=== PATIENT | female | born 1940 | race Caucasian/White ===

== ENCOUNTER 2019-03-13 12:10 | Observation (INO) ==
--- NOTE | 2019-03-13 12:37 | Emergency Department Note ---
Disposition Clinical Impression: Acute decompensated heart failure, JU (acute kidney injury) Disposition: Admitted As Inpatient Condition: Fair Forms: ED Satisfaction Letter, Work/School Release Time of Disposition: 14:37 General Adult HPI - General Chief complaint: ED General Medical Stated complaint: elevated BP CHF Time Seen by Provider: 03/13/19 12:25 Source: patient Limitations: no limitations Nursing Notes Reviewed: Yes Vital Signs Reviewed: Yes - History of Present Illness HPI Narrative: Patient presents to the ED with a chief complaint of shortness of breath. Onset a couple of months ago. Dyspnea on exertion. Patient states she can only get a few steps before she short of breath. It comes and goes. Patient sleeps in a chair. She is not experiencing any paroxysmal nocturnal dyspnea. Cough that is nonproductive. No fever. No chest pain. No vomiting no diarrhea. She is having increased swelling in her legs over the past 3 days. Patient has a history of CHF. Chest is a history of blood clots. She states she takes a blood thinner but is not sure what it is. Pain Scale: 0 - Related Data Home Medications Medication Instructions Recorded Confirmed Aspirin [Ecotrin] 325 mg PO DAILY 03/11/18 01/15/19 Atorvastatin [Lipitor] 20 mg PO HS 03/11/18 01/15/19 Levothyroxine [Synthroid] 88 mcg PO 0630 03/11/18 01/15/19 Metoprolol [Lopressor] 50 mg PO BID 03/11/18 01/15/19 Allopurinol [Zyloprim 100 MG] 100 mg PO DAILY PRN 08/27/18 01/15/19 Ranolazine [Ranexa] 500 mg PO BID 12/05/18 01/15/19 Albuterol Sulfate [Ventolin Hfa] 2 puff IH Q4H PRN 01/15/19 01/15/19 Previous Rx's Medication Instructions Recorded Lisinopril [Zestril] 10 mg PO DAILY #30 tablet 12/07/18 Omeprazole [PriLOSEC] 20 mg PO DAILY@0630 #30 capsule. 12/07/18 Nitroglycerin 0.4 mg SL PRN PRN #30 tab.subl 01/18/19 Allergies Allergy/AdvReac Type Severity Reaction Status Date / Time No Known Allergies Allergy Verified 12/05/18 10:34 All systems ED: reviewed and negative except as stated. Constitutional: Denies: fever Cardiovascular: Denies: chest pain, palpitations Respiratory: Reports: cough, dyspnea. Denies: wheezes Gastrointestinal: Denies: abdominal pain, nausea, vomiting, diarrhea Musculoskeletal: Reports: back pain (Chronic) Past Medical History - Past Medical History Attestation: Yes The following information was validated with the patient. Source: patient Medical history: Reports: CHF, coronary artery disease, hyperlipidemia, hypertension, myocardial infarction, pulmonary embolus, renal disease, thyroid disease, valvular heart disease, other Surgical history: Reports: carotid endarterectomy, heart valve replacement (bioprosthetic), knee replacement Psychiatric history: Reports: no psych history CAMP TENDER history: Reports: no CAMP TENDER history - Social History Smoking Status: Never smoker Smokeless Tobacco Status: No Alcohol use: Reports: none Drug use: Reports: none Physical Exam - General Limitations: no limitations General appearance: alert - Head Head exam: atraumatic, normocephalic - Eye Eye exam: Present: normal appearance - ENT ENT exam: normal exam, normal oropharynx - Neck Neck exam: Present: normal inspection, full ROM - Chest Chest inspection: Present: normal inspection, symmetric chest wall rise - Respiratory Respiratory exam: Present: other (Decreased air exchange in bases. Clear otherwise.). Absent: respiratory distress - Cardiovascular Cardiovascular exam: Present: regular rate, normal rhythm - Abdominal Exam Abdominal exam: Present: Non-Tender. Absent: tenderness, distention, guarding, rebound - Rectal Exam Stars Specialist present during exam: Yes (technical fellow) Rectal exam: Present: normal inspection, normal rectal tone, other (Brown stool). Absent: hemorrhoids - Expanded Lower Extremity Exam Lower leg exam: Present: other (2+ pitting edema to bilateral lower extremities. Symmetric.) - Psychiatric Psychiatric exam: Present: normal affect, normal mood - Skin Skin exam: Present: warm, dry Course Course Narrative: Patient is satting 100% on room air. She is in no distress. Cardiac workup. Vital Signs Temperature 98.2 F 03/13/19 12:12 Pulse Rate 60 03/13/19 12:12 Respiratory Rate 18 03/13/19 12:12 Blood Pressure 181/70 03/13/19 12:12 O2 Sat by Pulse Oximetry 96 03/13/19 12:12 Temperature 98.2 F 03/13/19 12:12 Pulse Rate 60 03/13/19 12:12 Respiratory Rate 18 03/13/19 12:12 Blood Pressure 181/70 03/13/19 12:12 O2 Sat by Pulse Oximetry 96 03/13/19 12:12 Oxygen Delivery Oxygen Delivery Room Air Medical Decision Making - MDM Narrative Medical decision making narrative: Patient with a new bump in her creatinine. Elevation in her BNP and troponin. She is given an aspirin. She is given IV Lasix. She is a new drop her hemoglobin over the past 5 months. Stool Hemoccult was sent, but no gross blood. Calling for admission. - Lab Data Lab results reviewed: Yes I reviewed the patient's lab results. Result diagrams: 03/13/19 12:32 03/13/19 12:32 Lab Results 03/13/19 03/13/19 03/13/19 Range/Units 12:32 12:32 12:32 WBC 6.9 (4.3-11.1) K/mcL RBC 2.96 L (3.82-4.97) M/mcL Hgb 9.1 L (11.5-15.4) g/dL Hct 29.0 L (35.3-44.9) % MCV 98.0 (83.0-100.0) fL MCH 30.7 (28.0-33.3) pg MCHC 31.4 L (31.6-35.5) g/dL RDW 15.2 H (11.5-14.5) % Plt Count 171 (140-400) K/mcL MPV 11.2 (9.4-12.4) fL Immature Gran % 0.6 (0-4) % Seg Neutrophils % 66.4 % Lymphocytes % 21.7 % Monocytes % 9.3 % Eosinophils % 1.3 % Basophils % 0.7 % Neutrophils # 4.6 (1.6-8.9) K/mcL Lymphocytes # 1.5 (0.6-4.6) K/mcL Monocytes # 0.6 (0.0-1.3) K/mcL Eosinophils # 0.1 (0.0-0.6) K/mcL Basophils # 0.1 (0.0-0.2) K/mcL PT 15.7 H (9.4-12.1) Seconds INR 1.4 Sodium (136-145) mEq/L Potassium (3.5-5.1) mEq/L Chloride (98-107) mEq/L Carbon Dioxide (23-29) mEq/L BUN (8-23) mg/dL Creatinine (0.60-1.20) mg/dL Est GFR ( Amer) (> 60) Est GFR (Non-Af Amer) (> 60) BUN/Creatinine Ratio (6-26) Glucose (70-105) mg/dL Calculated Osmolality (280-300) Calcium (8.6-10.3) mg/dL Troponin I (< 0.04) ng/mL B-Natriuretic Peptide 1741 H (Less than 100) pg/mL Urine Color (Yellow) Urine Clarity (Clear) Urine pH (5.0-8.0) pH Units Ur Specific [place] (1.010-1.025) Urine Protein (Neg-Trace) mg/dL Urine Glucose (UA) (Normal) mg/dL Urine Ketones (Negative) mg/dL Urine Blood (Negative) Urine Nitrite (Negative) Urine Bilirubin (Negative) Urine Urobilinogen (Normal) mg/dL Ur Leukocyte Esterase (Negative) Urine Microscopic RBC (0-3) per hpf Urine Microscopic WBC (0-3) per hpf Ur Squamous Epith Cells (None-Few) per lpf Urine Bacteria (None-Few) per hpf Hyaline Casts (None-Few) per lpf Ur Culture Indicated? (NO) 03/13/19 03/13/19 Range/Units 12:32 12:48 WBC (4.3-11.1) K/mcL RBC (3.82-4.97) M/mcL Hgb (11.5-15.4) g/dL Hct (35.3-44.9) % MCV (83.0-100.0) fL MCH (28.0-33.3) pg MCHC (31.6-35.5) g/dL RDW (11.5-14.5) % Plt Count (140-400) K/mcL MPV (9.4-12.4) fL Immature Gran % (0-4) % Seg Neutrophils % % Lymphocytes % % Monocytes % % Eosinophils % % Basophils % % Neutrophils # (1.6-8.9) K/mcL Lymphocytes # (0.6-4.6) K/mcL Monocytes # (0.0-1.3) K/mcL Eosinophils # (0.0-0.6) K/mcL Basophils # (0.0-0.2) K/mcL PT (9.4-12.1) Seconds INR Sodium 138 (136-145) mEq/L Potassium 4.6 (3.5-5.1) mEq/L Chloride 104 (98-107) mEq/L Carbon Dioxide 23 (23-29) mEq/L BUN 40 H (8-23) mg/dL Creatinine 2.08 H (0.60-1.20) mg/dL Est GFR ( Amer) 28 L (> 60) Est GFR (Non-Af Amer) 23 L (> 60) BUN/Creatinine Ratio 19 (6-26) Glucose 116 H (70-105) mg/dL Calculated Osmolality 297 (280-300) Calcium 10.2 (8.6-10.3) mg/dL Troponin I 0.05 H* (< 0.04) ng/mL B-Natriuretic Peptide (Less than 100) pg/mL Urine Color Yellow (Yellow) Urine Clarity Clear (Clear) Urine pH 5.0 (5.0-8.0) pH Units Ur Specific [place] 1.021 (1.010-1.025) Urine Protein 100 H (Neg-Trace) mg/dL Urine Glucose (UA) Normal (Normal) mg/dL Urine Ketones Negative (Negative) mg/dL Urine Blood Negative (Negative) Urine Nitrite Negative (Negative) Urine Bilirubin Negative (Negative) Urine Urobilinogen Normal (Normal) mg/dL Ur Leukocyte Esterase Negative (Negative) Urine Microscopic RBC 0-3 (0-3) per hpf Urine Microscopic WBC 3-5 H (0-3) per hpf Ur Squamous Epith Cells Many H (None-Few) per lpf Urine Bacteria Many H (None-Few) per hpf Hyaline Casts None Seen (None-Few) per lpf Ur Culture Indicated? YES A (NO) - Radiology Data Radiology results reviewed: Yes I reviewed the patient's radiology results. Chest X-Ray 03/13/19 12:34 IMPRESSION: No evidence of acute cardiopulmonary disease. D/ / Abraham Hernandez MD / Abraham Hernandez MD Interpreting Provider: Abraham Hernandez MD - EKG Data EKG #1 EKG attestation: Yes I reviewed and interpreted this EKG. EKG results narrative: EKG is paced at 60. The QRS and ST morphologies are unchanged from an EKG in December of this year. Critical Care Time Critical Care Time: Yes Total Critical Care Time: 35 Attestation: Critical care performed: Time is exclusive of separately billable procedures. Time includes: direct patient care, patient reassessment, coordination of patient care, interpretation of data (laboratory data, radiology data, and respiratory data), review of patient's medical records, medical consultation and documentation of patient care. Procedures included in critical care time: Procedures excluded from critical care time:
[2019-03-13 12:50] LABS: Basophils # 0.1 K/mcL (0.0-0.2); Basophils % 0.7 %; Eosinophils # 0.1 K/mcL (0.0-0.6); Eosinophils % 1.3 %; Hemoglobin 9.1 g/dL (11.5-15.4); Immature Granulocytes % 0.6 % (0-4); Lymphocytes # 1.5 K/mcL (0.6-4.6); Lymphocytes % 21.7 %; Mean Corpuscular HGB Conc 31.4 g/dL (31.6-35.5); Mean Corpuscular Hemoglobin 30.7 pg (28.0-33.3); Mean Platelet Volume 11.2 fL (9.4-12.4); Monocytes # 0.6 K/mcL (0.0-1.3); Monocytes % 9.3 %; Neutrophils # 4.6 K/mcL (1.6-8.9); Platelet Count 171 K/mcL (140-400); Red Blood Count 2.96 M/mcL (3.82-4.97); Red Cell Distribution Width 15.2 % (11.5-14.5); Segmented Neutrophils % 66.4 %
[2019-03-13 12:58] LABS: INR 1.4; Prothrombin Time 15.7 Seconds (9.4-12.1)
[2019-03-13 13:03] LABS: Bilirubin,Urine Negative (Negative); Blood,Urine Negative (Negative); Clarity,Urine Clear (Clear); Color,Urine Yellow (Yellow); Glucose,Urine (UA) Normal (Normal); Ketones,Urine Negative (Negative); Leukocyte Esterase,Urine Negative (Negative); Nitrite,Urine Negative (Negative); Protein,Urine 100 mg/dL (Neg-Trace); Specific Gravity,Urine 1.021 (1.010-1.025); Urobilinogen,Urine Normal (Normal)
[2019-03-13 13:05] LABS: Bacteria,Urine Many per hpf (None-Few); Hyaline Casts,Urine None Seen per lpf (None-Few); RBC,Urine 0-3 per hpf (0-3); Squamous Epithelial Cell,Urine Many per lpf (None-Few)
[2019-03-13 13:10] LABS: Calcium 10.2 mg/dL (8.6-10.3); Potassium 4.6 mEq/L (3.5-5.1)
[2019-03-13 14:05] LABS: Troponin I 0.05 ng/mL (< 0.04)
[2019-03-13] MEDS ORDERED: Furosemide 40 MG/4 ML VIAL IVP ONE (14:15)
[2019-03-13] MEDS ORDERED: Aspirin 325 MG TABLET PO ONE (14:36)
[2019-03-13] MEDS ORDERED: Naloxone 0.4 MG/ML INJ IVP PRN (14:54)
[2019-03-13] MEDS ORDERED: Nitroglycerin 0.4 MG TAB.SUBL SL PRN (15:10)
--- NOTE | 2019-03-13 15:19 | Internal Med History&Physical ---
Date of Encounter: 03/13/19 Time of Encounter: 15:15 Internal Medicine - H&P: HPI Chief complaint: Shortness of breath Admitted From: Home Plans for Post Hospital Care: Home History of present illness: Ms. Guajardo is a 78 year old female with history of aortic stenosis status post replacement and restenosis, heart failure preserved ejection fraction presented to the emergency department with complaint of shortness of breath. As per patient her shortness of breath started 3 days ago and is progressively worsening. She is unable to complete her every day tasks, it has become more difficult for her to ambulate around her house over the past 3 days. On the morning of admission she was unable to catch her breath with minimal exertion so she decided to come to the emergency department. She denies cough, chest pain or palpitations however does report orthopnea and PND over the past 3 days. In addition she complains of bilateral lower extremity swelling. 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 She understand that her symptoms are likely related to her severe aortic stenosis and given her elevated BNP and troponin she has poor prognosis she understands. She wishes to be DNR CCA DNI and she has made her her decision maker in any event that she cannot make her own decisions. She denies fever, chills, cough, recent upper respiratory tract infections, nausea, vomiting or diarrhea. She denies prolonged immobilization or calf tenderness, has never had any blood clots in the past. Past Med Surg Social Fam HX - Past Medical History Medical history: CHF, coronary artery disease, hyperlipidemia, hypertension, myocardial infarction, pulmonary embolus, renal disease, thyroid disease, valvular heart disease, other Additional medical history: GOUT Psychiatric history: no psych history - Past Surgical History Surgical History: carotid endarterectomy, heart valve replacement (bioprosthetic), knee replacement - Social History Smoking Status: Never smoker Smokeless Tobacco Status: No Alcohol use: none Drug use: none - Family History Mother Living Status: Father Living Status: Internal Medicine - H&P: Meds Aspirin [Ecotrin] 325 mg PO DAILY 03/11/18 [History] Atorvastatin [Lipitor] 20 mg PO HS 03/11/18 [History] Levothyroxine [Synthroid] 88 mcg PO 0630 03/11/18 [History] Metoprolol [Lopressor] 50 mg PO BID 03/11/18 [History] Allopurinol [Zyloprim 100 MG] 100 mg PO DAILY PRN 08/27/18 [History] Ranolazine [Ranexa] 500 mg PO BID 12/05/18 [History] Lisinopril [Zestril] 10 mg PO DAILY #30 tablet 12/07/18 [Rx] Omeprazole [PriLOSEC] 20 mg PO DAILY@0630 #30 capsule.dr 12/07/18 [Rx] Albuterol Sulfate [Ventolin Hfa] 2 puff IH Q4H PRN 01/15/19 [History] Nitroglycerin 0.4 mg SL PRN PRN #30 tab.subl 01/18/19 [Rx] Allergy/AdvReac Type Severity Reaction Status Date / Time No Known Allergies Allergy Verified 12/05/18 10:34 All Systems PM: A 10-system review of systems was performed and is negative for pertinent findings except as documented above in the HPI. - Constitutional Vitals: Temp Pulse Resp BP Pulse Ox 98.2 F 60 20 165/63 100 03/13/19 12:12 03/13/19 14:55 03/13/19 14:55 03/13/19 14:55 03/13/19 14:55 Exam: General: Patient is alert, oriented, no acute distress, obese Head: atraumatic, normocephalic, Eye: normal appearance, PERRL, no scleral icterus, no conjunctival injection ENT: mucous membranes moist, normal external ear exam Neck: normal inspection, trachea midline, full ROM Chest: normal inspection, symmetric chest rise Respiratory: Distant breath sounds secondary to body habitus, Good respiratory effort. Bilateral breath sounds are clear without wheezing, crackles, or rhonchi. Cardiovascular: Regular rate and rhythm. s1 and s2 systolic ejection murmur at the right second intercostal space parasternally, radiating to the carotids, has device in the left chest without any signs of infection. Abdomen: Bowel sounds present normoactive x-4 quadrants. Abdomen is soft, nondistended. no Epigastric tenderness. No guarding or rebound. No organomegaly noted, obese musculoskeletal: Spontaneously moving all extremities. Trace edema bilateral lower extremities, no calf discoloration, no calf tenderness Skin: warm, dry, intact. Neuro: Alert and oriented x4. no focal deficit Psych: Patient's affect is normal Internal Med - H&P Results - Labs CBC & Chem 7: 03/13/19 12:32 03/13/19 12:32 Labs: Short CBC 03/13/19 Range/Units 12:32 WBC 6.9 (4.3-11.1) K/mcL Hgb 9.1 L (11.5-15.4) g/dL Hct 29.0 L (35.3-44.9) % Plt Count 171 (140-400) K/mcL Neutrophils # 4.6 (1.6-8.9) K/mcL BMP 03/13/19 12:32 Sodium 138 Potassium 4.6 Chloride 104 Carbon Dioxide 23 BUN 40 H Creatinine 2.08 H Glucose 116 H Calcium 10.2 Cardiac Enzymes 03/13/19 Range/Units 12:32 Troponin I 0.05 H* (< 0.04) ng/mL Urine 03/13/19 Range/Units 12:48 Urine Color Yellow (Yellow) Urine Clarity Clear (Clear) Urine pH 5.0 (5.0-8.0) pH Units Ur Specific [place] 1.021 (1.010-1.025) Urine Protein 100 H (Neg-Trace) mg/dL Urine Glucose (UA) Normal (Normal) mg/dL - EKG Data -: EKG Interpreted by Myself (Atrial ventricular paced) - EKG Data Prior EKG available for review: yes When compared to previous EKG: there is no significant change - Impressions ITS Impressions Chest X-Ray 03/13/19 12:34 IMPRESSION: No evidence of acute cardiopulmonary disease. D/ / Abraham Hernandez MD / Abraham Hernandez MD Interpreting Provider: Abraham Hernandez MD - Assessment and Plan (1) Acute on chronic diastolic (congestive) heart failure Current Visit: No Status: Chronic Assessment and plan: BNP 1741 CXR without vascualr congestion however she has LE edema TTE in 2017- LVEF 60-65%.Normal LV chamber size and function.Moderate concentric left ventricular hypertrophy. has severe but overloaded on exam was give lasix 40 mg IVP in the ED avoid over diuresis/ avoid vasodilators and avoid reducing preload too much as she has severe strict i/O daily weights fluid restricted diet TTE ordered will follow (2) Acute renal failure superimposed on stage 3 chronic kidney disease Current Visit: Yes Status: Acute Assessment and plan: suspect cardiorenal syndrome as she is fluid overloaded adn most likely has under perfused kidneys will get renal US to rule out hydronephrosis recieved one dose of IV lasix in the ED follow intake and out put will follow renal functions closely Qualifiers: Acute renal failure type: unspecified Qualified Code(s): N17.9 - Acute kidney failure, unspecified; N18.3 - Chronic kidney disease, stage 3 (moderate) (3) Aortic stenosis Current Visit: No Status: Chronic Assessment and plan: was found to be inoperable as per patient ( by [facility] and [facility]) was recently admitted for similar symptoms however TTE was not performed as "however as pt declines further intervention, would not change therapy" will repeat TTE to see the degree of stenosis now as the last TTE was in 2017 skilled nursing prognosis is poor TTE 2017 Technically sub-optimal due to poor echocardiographic windows. LVEF 60-65%. Normal LV chamber size and function. Moderate concentric left ventricular hypertrophy. Atypical septal motion consistent with paced rhythm. Normal right ventricular structure and function. Severely dilated left atrium. Moderate left ventricular diastolic dysfunction. Bioprosthetic aortic valve not well visualized. 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 Mean gradient 60 mmHg, Peak velocity 5.57 m/s. Trace aortic regurgitation. Mild mitral regurgitation. Moderate to severe tricuspid regurgitation. Estimated RVSP is 54 mmHg. A device lead was visualized in the right atrium and right ventricle. Qualifiers: Cardiac valve disease etiology: etiology unspecified Qualified Code(s): I35.0 - Nonrheumatic aortic (valve) stenosis (4) Acute on chronic anemia Current Visit: Yes Status: Acute Assessment and plan: baseline H/H about 11.6 on 02/12/2019 Currently hemoglobin level of 9.1 could be due to volume overload. Rule out other etiologies for her anemia Iron panel, ferritin, reticulocyte count, LDH, B12 and folate was sent continue with PPI Type and cross Follow H&H closely and transfuse less than 8 FOBT ordered and it was negative (5) Elevated troponin Current Visit: Yes Status: Acute Assessment and plan: Has chronic elevated troponins. Was recently admitted in January 15 troponin trended 0.25-0.72-0.88-0.38 at that time she was treated with heparin drip Cardiology was consulted in December and "Minimal elevation of troponin, may be due to demand ischemia, may have underlying worsening of CAD, however pt elects for medical tx only, continue current tx. " Elevated troponin is most likely residual from last admission and also related to her severe aortic stenosis however cannot rule out underlying worsening CAD in setting of her acute renal failure on CKD Currently troponin is 0.05 we will continue to monitor every 6 hours She has had no chest pain No significant EKG changes Will repeat echocardiogram was given ASA 325 mg in the ED continue with ASA, BB, statin, ranolazine holding ARB ( has JU) (6) Hypertension Current Visit: No Status: Chronic Assessment and plan: ARB on hold as she has ARF IV hydralazine PRN for elevated BP avoid vasodilators, preload reducers and aggressive diuretic therapy as she has severe . Qualifiers: Hypertension type: essential hypertension Qualified Code(s): I10 - Essential (primary) hypertension (7) Hypothyroidism Current Visit: No Status: Chronic Assessment and plan: continue with home synthroid TSH in AM Qualifiers: Hypothyroidism type: unspecified Qualified Code(s): E03.9 - Hypothyroidism, unspecified (8) Goals of care, counseling/discussion Current Visit: No Status: Acute Assessment and plan: discussed with patient at length she is DNR CCA DNI at bedside and she has made him decision maker in an event she cannot make her own decisions. 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
[2019-03-13] MEDS: *HR* Heparin 5,000 UNIT/ML VIAL SQ SCH (20:53)
[2019-03-13] MEDS: Ranolazine 500 MG TAB.ER.12H PO SCH (20:53)
[2019-03-14 01:18] LABS: Basophils # 0.1 K/mcL (0.0-0.2); Basophils % 0.7 %; Eosinophils # 0.2 K/mcL (0.0-0.6); Eosinophils % 2.2 %; Hematocrit 35.6 % (35.3-44.9); Immature Granulocytes % 0.4 % (0-4); Immature Reticulocyte % 26.1 % (11.0-38.0); Lymphocytes # 2.4 K/mcL (0.6-4.6); Mean Corpuscular HGB Conc 32.3 g/dL (31.6-35.5); Mean Corpuscular Hemoglobin 30.8 pg (28.0-33.3); Mean Corpuscular Volume 95.4 fL (83.0-100.0); Mean Platelet Volume 11.2 fL (9.4-12.4); Monocytes # 1.1 K/mcL (0.0-1.3); Monocytes % 11.9 %; Neutrophils # 5.4 K/mcL (1.6-8.9); Platelet Count 224 K/mcL (140-400); Red Blood Count 3.73 M/mcL (3.82-4.97); Retculocyte # 0.1 M/mcL (0.05-0.10); Reticulocyte % 2.6 % (1.6-2.8); Segmented Neutrophils % 58.8 %
[2019-03-14 01:24] LABS: Hemoglobin 11.5 g/dL (11.5-15.4)
[2019-03-14 01:40] LABS: Calcium 9.9 mg/dL (8.6-10.3); Chol/HDL Ratio 3.7 (0-4.9); Magnesium 1.7 mg/dL (1.6-2.6); Phosphorous 3.4 mg/dL (2.7-4.5); Potassium 3.8 mEq/L (3.5-5.1)
[2019-03-14 01:41] LABS: % Iron Saturation 21 % (15-50); Iron 73 mcg/dL (50-170); Lactate Dehydrogenase 221 Units/L (140-271); Transferrin 247 mg/dL (203-362)
[2019-03-14 01:43] LABS: Troponin I 0.05 ng/mL (< 0.04)
[2019-03-14 01:56] LABS: Thyroid Stimulating Hormone 14.707 mcIU/mL (0.340-5.600)
[2019-03-14 01:58] LABS: Ferritin 289 ng/mL (10-120)
[2019-03-14 02:04] LABS: Folate 15.6 ng/mL (3.0-16.0)
[2019-03-14] MEDS: *HR* Heparin 5,000 UNIT/ML VIAL SQ SCH ×3 (04:01→21:45)
[2019-03-14] MEDS ORDERED: Furosemide 40 MG/4 ML VIAL IVP SCH (09:00)
[2019-03-14] MEDS: Aspirin Enteric Coated 325 MG Tablet PO SCH (09:45)
[2019-03-14] MEDS: Ranolazine 500 MG TAB.ER.12H PO SCH ×2 (09:45→21:45)
--- NOTE | 2019-03-14 10:45 | Internal Med Progress Note ---
Hospitalist Progress Note - Encounter Date of Encounter: 03/14/19 Time of Encounter: 09:30 - Subjective Interval History: patient was seen and examined at bedside. no overnight events. currently denies SOB or chest pain or palpitations. i discussed again that her symptoms as most likely related to the that she has. she wishes to have no further surgeries. - Exam Vitals: Temp Pulse Resp BP Pulse Ox 98.5 F 60 20 171/97 98 03/14/19 07:10 03/14/19 07:10 03/14/19 07:10 03/14/19 07:10 03/14/19 07:10 Exam: General: Patient is alert, oriented, no acute distress, obese Head: atraumatic, normocephalic, Eye: normal appearance, PERRL, no scleral icterus, no conjunctival injection ENT: mucous membranes moist, normal external ear exam Neck: normal inspection, trachea midline, full ROM Chest: normal inspection, symmetric chest rise Respiratory: Distant breath sounds secondary to body habitus, Good respiratory effort. Bilateral breath sounds are clear without wheezing, crackles, or rhonchi. Cardiovascular: Regular rate and rhythm. s1 and s2 systolic ejection murmur at the right second intercostal space parasternally, radiating to the carotids, has device in the left chest without any signs of infection. Abdomen: Bowel sounds present normoactive x-4 quadrants. Abdomen is soft, nondistended. no Epigastric tenderness. No guarding or rebound. No organomegaly noted, obese musculoskeletal: Spontaneously moving all extremities. Trace edema bilateral lower extremities, no calf discoloration, no calf tenderness Skin: warm, dry, intact. Neuro: Alert and oriented x4. no focal deficit Psych: Patient's affect is normal - Assessment and Plan (1) Acute on chronic diastolic (congestive) heart failure Current Visit: No Status: Chronic Assessment and Plan: BNP 1741 CXR without vascualr congestion however she has LE edema TTE in 2017- LVEF 60-65%.Normal LV chamber size and function.Moderate concentric left ventricular hypertrophy. has severe but overloaded on exam was give lasix 40 mg IVP in the ED - with improvement of her volume status had -930 balance overnight avoid over diuresis/ avoid vasodilators and avoid reducing preload too much as she has severe strict i/O daily weights fluid restricted diet TTE ordered will follow (2) Acute renal failure superimposed on stage 3 chronic kidney disease Current Visit: Yes Status: Acute Assessment and Plan: suspect cardiorenal syndrome as she is fluid overloaded adn most likely has under perfused kidneys will get renal US to rule out hydronephrosis received one dose of IV lasix in the ED - will hold off of lasix as creatinine trended up. follow intake and out put will follow renal functions closely (3) Aortic stenosis Current Visit: No Status: Chronic Assessment and Plan: was found to be inoperable as per patient ( by [facility] and [facility]) was recently admitted for similar symptoms however TTE was not performed as "however as pt declines further intervention, would not change therapy" i spoke to the patinet again today she declines any further invasive cardiac procedures will repeat TTE to see the degree of stenosis now as the last TTE was in 2017 [facility] prognosis is poor TTE 2017 Technically sub-optimal due to poor echocardiographic windows. LVEF 60-65%. Normal LV chamber size and function. Moderate concentric left ventricular hypertrophy. Atypical septal motion consistent with paced rhythm. Normal right ventricular structure and function. Severely dilated left atrium. Moderate left ventricular diastolic dysfunction. Bioprosthetic aortic valve not well visualized. 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 Mean gradient 60 mmHg, Peak velocity 5.57 m/s. Trace aortic regurgitation. Mild mitral regurgitation. Moderate to severe tricuspid regurgitation. Estimated RVSP is 54 mmHg. A device lead was visualized in the right atrium and right ventricle. (4) Acute on chronic anemia Current Visit: Yes Status: Acute Assessment and Plan: baseline H/H about 11.6 on 02/12/2019 Currently hemoglobin level of 9.1 could be due to volume overload. Rule out other etiologies for her anemia Iron panel noted, LDH 221, B12- 225 and folate 15.6 started on B12 replacement continue with PPI Type and cross Follow H&H closely and transfuse less than 8 FOBT ordered and it was negative (5) Elevated troponin Current Visit: Yes Status: Acute Assessment and Plan: Has chronic elevated troponins. Was recently admitted in January 15 troponin trended 0.25-0.72-0.88-0.38 at that time she was treated with heparin drip Cardiology was consulted in December and "Minimal elevation of troponin, may be due to demand ischemia, may have underlying worsening of CAD, however pt elects for medical tx only, continue current tx. " Elevated troponin is most likely residual from last admission and also related to her severe aortic stenosis however cannot rule out underlying worsening CAD in setting of her acute renal failure on CKD Currently troponin is 0.05 x 3 She has had no chest pain No significant EKG changes echocardiogram pending was given ASA 325 mg in the ED - continue with home ASA dose continue with ASA, BB, statin, ranolazine holding ARB (has JU) (6) Hypertension Current Visit: No Status: Chronic Assessment and Plan: ARB on hold as she has ARF started on hydralazine and continue with IV PRN for elevated BP avoid vasodilators, preload reducers and aggressive diuretic therapy as she has severe . (7) Hypothyroidism Current Visit: No Status: Chronic Assessment and Plan: TSH 14.7 will increase synthroid 100 mcg follow TFTs in 4 weeks as OP (8) Goals of care, counseling/discussion Current Visit: No Status: Acute Assessment and Plan: discussed with patient at length she is DNR CCA DNI at bedside and she has made him decision maker in an event she cannot make her own decisions. 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 (9) DVT prophylaxis Current Visit: No Status: Acute Assessment and Plan: Heparin subcutaneous - Time Spent with Patient Total time spent is greater than 50% in coordination of care (as documented) at patient's floor/unit and/or counseling patient: Internal Medicine: Result - Labs CBC & Chem 7: 03/14/19 00:58 03/14/19 00:58 Labs: Short CBC 03/13/19 03/14/19 Range/Units 12:32 00:58 WBC 6.9 9.2 (4.3-11.1) K/mcL Hgb 9.1 L 11.5 D (11.5-15.4) g/dL Hct 29.0 L 35.6 (35.3-44.9) % Plt Count 171 224 (140-400) K/mcL Neutrophils # 4.6 5.4 (1.6-8.9) K/mcL BMP 03/13/19 03/14/19 12:32 00:58 Sodium 138 140 Potassium 4.6 3.8 Chloride 104 104 Carbon Dioxide 23 25 BUN 40 H 40 H Creatinine 2.08 H 2.19 H Glucose 116 H 124 H Calcium 10.2 9.9 Cardiac Enzymes 05/03/13/19 03/14/19 Range/Units 12:32 19:11 00:58 Troponin I 0.05 H* 0.05 H* 0.05 H* (< 0.04) ng/mL Urine 03/13/19 Range/Units 12:48 Urine Color Yellow (Yellow) Urine Clarity Clear (Clear) Urine pH 5.0 (5.0-8.0) pH Units Ur Specific [place] 1.021 (1.010-1.025) Urine Protein 100 H (Neg-Trace) mg/dL Urine Glucose (UA) Normal (Normal) mg/dL - ABG Interpretation ABG results: PT/INR, D-dimer PT 15.7 Seconds (9.4-12.1) H 03/13/19 12:32 - Impressions Impressions Chest X-Ray 03/13/19 12:34 IMPRESSION: No evidence of acute cardiopulmonary disease. D/ / Abraham Hernandez MD / Abraham Hernandez MD Interpreting Provider: Abraham Hernandez MD Consult Discharge Plan - Plan Referrals: Candy Beverly MD [Primary Care Provider] - (2) Acute renal failure superimposed on stage 3 chronic kidney disease Qualifiers: Acute renal failure type: unspecified Qualified Code(s): N17.9 - Acute kidney failure, unspecified; N18.3 - Chronic kidney disease, stage 3 (moderate) (3) Aortic stenosis Qualifiers: Cardiac valve disease etiology: etiology unspecified Qualified Code(s): I35.0 - Nonrheumatic aortic (valve) stenosis (6) Hypertension Qualifiers: Hypertension type: essential hypertension Qualified Code(s): I10 - Essential (primary) hypertension (7) Hypothyroidism Qualifiers: Hypothyroidism type: unspecified Qualified Code(s): E03.9 - Hypothyroidism, unspecified
[2019-03-14] MEDS: hydrALAZINE 25 MG TABLET PO SCH ×2 (12:02→17:50)
--- NOTE | 2019-03-14 13:50 | Palliative - Consult Note ---
Date of Encounter: 03/14/19 Time of Encounter: 11:00 - Assessment and Plan (1) Chronic kidney disease (CKD) Current Visit: No Status: Acute Assessment and plan: The bun 40, creatinine 2.19. Qualifiers: Chronic kidney disease stage: stage 3 (moderate) Qualified Code(s): N18.3 - Chronic kidney disease, stage 3 (moderate) (2) Palliative care encounter Current Visit: Yes Status: Acute (3) Aortic valve stenosis Current Visit: No Status: Acute Assessment and plan: Patient reports inoperable aortic stenosis under guidance from [facility] and [facility]. Patient reports she understands this is a terminal cardiac condition. Qualifiers: Cardiac valve disease etiology: nonrheumatic Qualified Code(s): I35.0 - Nonrheumatic aortic (valve) stenosis (4) Goals of care, counseling/discussion Current Visit: No Status: Acute Assessment and plan: With patient regarding for goals of care discussion. Patient was immediately adamant against discussing hospice, upon introduction of palliative care team. Inquired if patient was agreeable to continue with goals of care discussion, patient was agreeable. Patient reports she desires to return home living with . Reviewed options for care at home including home health assistance and regarding symptom control and increase of strength. Patient interested in considering home health referral however desires to talk to her prior to making decision. Inquired with patient if could briefly review services made available by hospice. Patient agreeable. Reviewed allowance for nursing care, DME, medication support. Patient remained adamant against hospice at this time. Patient appreciative of information regarding hospice, she will know when to call for that service. Review CODE STATUS, patient confirmed DNR CCA/DNI. (5) Elevated troponin Current Visit: No Status: Acute Assessment and plan: Stable at this time. Palliative-CN HPI - Data of Consult Patient: new to practice Consult date: 03/14/19 Requesting Physician: Thao Hodge Primary Care Provider: Candy Beverly MD - Consult Narrative Palliative Care/Comfort Measures: Palliative care Reason for consult: Has Critical that is inoperable, is DNR/DNI, Hospice candidate? History of present illness: Ms. Guajardo is a 78 year old female arriving to [facility] emergency department on 03/13/2019, experiencing difficulty breathing 3 days and increased leg swelling 1 day with worsening symptoms on exertion. Patient has past medical history of congestive heart failure, coronary artery disease, hyperlipidemia, hypertension, myocardial infarction, PE, renal disease, thyroid disease, aortic stenosis deemed inoperable by [facility] and [facility]. Chest x-ray was unremarkable. Patient had 3 troponin stable at 0.05. BNP positive at 1741. This is patient's third admission in the last 3 months. Palliative care consult at 4 aortic stenosis that is inoperable, patient is DNR/DNI and will make decisions in case she cannot, long-term prognosis is poor and possible hospice candidate. Patient is up ambulating in hallway upon arrival for assessment. Patient returns to room for full goals of care discussion. Patient immediately states, "I am not interested in any of the hospice stuff." Patient is alert and oriented 3. No family present at bedside. Patient denies pain, anxiety, nausea or vomiting, and shortness of breath. Patient reports as long as she" is on her best behavior" her symptoms are well-controlled. When inquiring what was meant by best behavior, patient reports staying in the house, no gardening, resting. She reports spending time with patient's and son daily. Patient resides home with . No home health. CC: Thao Hodge - Time Spent with Patient Time: Total time spent is greater than 50% in coordination of care (as documented) at patient's floor/unit and/or counseling patient: Time with patient: 30 minutes Past Med Surg Social Fam HX - Past Medical History Medical history: CHF, coronary artery disease, hyperlipidemia, hypertension, myocardial infarction, pulmonary embolus, renal disease, thyroid disease, valvular heart disease, other Additional medical history: GOUT Psychiatric history: no psych history - Past Surgical History Surgical History: carotid endarterectomy, heart valve replacement, knee replacement - Social History Smoking Status: Never smoker Smokeless Tobacco Status: No Alcohol use: none Drug use: none - Family History Mother Living Status: Father Living Status: Medications and Allergies Aspirin [Ecotrin] 325 mg PO DAILY 03/11/18 [History] Atorvastatin [Lipitor] 20 mg PO HS 03/11/18 [History] Levothyroxine [Synthroid] 88 mcg PO 0630 03/11/18 [History] Metoprolol [Lopressor] 50 mg PO BID 03/11/18 [History] Allopurinol [Zyloprim 100 MG] 100 mg PO DAILY PRN 08/27/18 [History] Ranolazine [Ranexa] 500 mg PO BID 12/05/18 [History] Omeprazole [PriLOSEC] 20 mg PO DAILY@0630 #30 capsule.dr 12/07/18 [Rx] Nitroglycerin 0.4 mg SL PRN PRN #30 tab.subl 01/18/19 [Rx] Lisinopril-HCTZ 10-12.5 [Prinzide 10-12.5] 1 tab PO DAILY 03/14/19 [History] Allergy/AdvReac Type Severity Reaction Status Date / Time No Known Allergies Allergy Verified 12/05/18 10:34 - Constitutional Constitutional ROS PAL: lethargy, no decreased appetite, no fever(s), no demar quent falls - EENT Eyes: no change in vision - Cardiovascular Cardiovascular ROS: chest pain with activity, dyspnea on exertion, no chest pain - Respiratory Respiratory: dyspnea on exertion, no cough, no dyspnea - Gastrointestinal Gastrointestinal: no diarrhea, no nausea, no vomiting - Genitourinary Palliative ROS female: no abnormal vaginal bleeding, no difficulty voiding - Musculoskeletal Musculoskeletal ROS IM: no back pain, no myalgias - Integumentary ROS Integumentary: no dry skin, no sores - Neurological Neurological ROS: weakness - Psychiatric Psychiatric general PM: no anxiety Palliative Care-Exam - Constitutional Vitals: Temp Pulse Resp BP Pulse Ox 97.7 F 60 20 153/71 97 03/14/19 11:14 03/14/19 11:14 03/14/19 11:14 03/14/19 11:14 03/14/19 11:14 General appearance: Present: cooperative, no acute distress, obese - Head Head Exam: Present: atraumatic, normal inspection - Eye Eye exam: Present: EOMI, normal appearance - ENT ENT exam: Present: mucous membranes moist, normal external ear exam - Neck Neck exam: Present: full ROM, normal inspection - Respiratory Respiratory exam: Present: CTAB. Absent: accessory muscle use - Cardiovascular Cardiovascular exam: Present: RRR, +S1, +S2 - GI/Abdominal Exam GI/Abdominal exam: Present: normal bowel sounds, soft. Absent: tenderness - Rectal Rectal exam: Present: deferred - Extremities Exam Extremities exam: Present: pedal edema (plus 2) - Back Exam Back exam: Present: full ROM, normal inspection - Neurological Exam Neurological exam: Present: alert, oriented X3, strengths equal and symetr throughout. Absent: altered, facial droop - Expanded Neurological Exam Patient oriented to: Present: person, place, time Coma Scale Eye Opening: Spontaneous Coma Scale Motor Response: Obeys Commands Coma Scale Verbal Response: Oriented Coma Scale Total: 15 - Psychiatric Psychiatric exam: Present: normal affect, normal mood - Skin Skin exam: Present: dry, intact, warm Internal Medicine - CN: Reslt - Labs CBC & Chem 7: 03/14/19 00:58 03/14/19 00:58 Labs: Short CBC 03/14/19 Range/Units 00:58 WBC 9.2 (4.3-11.1) K/mcL Hgb 11.5 D (11.5-15.4) g/dL Hct 35.6 (35.3-44.9) % Plt Count 224 (140-400) K/mcL Neutrophils # 5.4 (1.6-8.9) K/mcL BMP 03/14/19 00:58 Sodium 140 Potassium 3.8 Chloride 104 Carbon Dioxide 25 BUN 40 H Creatinine 2.19 H Glucose 124 H Calcium 9.9 Cardiac Enzymes 03/13/19 03/13/19 03/14/19 Range/Units 12:32 19:11 00:58 Troponin I 0.05 H* 0.05 H* 0.05 H* (< 0.04) ng/mL - ABG Interpretation ABG results: PT/INR, D-dimer PT 15.7 Seconds (9.4-12.1) H 03/13/19 12:32 Consult Discharge Plan - Plan Referrals: Candy Beverly MD [Primary Care Provider] - Palliative Quality Palliative Quality: Screen for Code Status: Yes, Screen for Goals of Care: Yes, Screen for Pain: Yes, If Pain Regimen Started, Initiate Bowel Regimen: NA, Screen for Nausea/Vomitting: Yes Code Status: 03/13/19 14:54 Resuscitation Status: Active [RES] Routine Comment: Resuscitation Status: [id number] Palliative Scale - Palliative Performance Scale How ambulatory is this patient?: Full What is patient's level of activity and evidence of disease?: Normal activity with effort, Some evidence of disease How much self-care assistance does patient require?: Full How much oral intake does the patient have?: Normal What is this patient's level of consciousness?: Full Palliative Performance Score: 80 %
[2019-03-14] MEDS: cefTRIAXone 1,000 MG in Water for inj. (sterile) 20 ML 10 ML IVP SCH (15:42)
[2019-03-14] MEDS ORDERED: NON-FORMULARY MEDICATION 1 EACH EACH (Atorvastatin Calcium [Lipitor] 20 MG) PO SCH (21:00)
[2019-03-15] MEDS: hydrALAZINE 25 MG TABLET PO SCH ×4 (00:49→13:29)
[2019-03-15] MEDS: *HR* Heparin 5,000 UNIT/ML VIAL SQ SCH (04:51)
[2019-03-15] MEDS: Ranolazine 500 MG TAB.ER.12H PO SCH (08:19)
[2019-03-15] MEDS: cefTRIAXone 1,000 MG in Water for inj. (sterile) 20 ML 10 ML IVP SCH (08:19)
[2019-03-15] MEDS: Aspirin Enteric Coated 325 MG Tablet PO SCH (08:19)
[2019-03-15 08:54] LABS: Calcium 10.3 mg/dL (8.6-10.3); Potassium 3.8 mEq/L (3.5-5.1)
[2019-03-15] MEDS ORDERED: Cyanocobalamin (B-12) 1,000 MCG TABLET PO SCH (09:15)
--- NOTE | 2019-03-15 11:03 | Event Note ---
Date of Encounter: 03/15/19 Time of Encounter: 09:00 Patient was seen this morning, states to be feeling fine and wants to return home today. She denied any symptoms. She stated she had a good conversation with FLOORING SALES MANAGER [place] yesterday, and was not willing to continue further conversation. Thank you for allowing us to participate in the care of this patient, Palliative care will sign off. Please re-consult prn.
--- NOTE | 2019-03-15 11:39 | Cardiology Consult Note ---
Date of Encounter: 03/15/19 Time of Encounter: 11:37 Assessment and Plan (1) Severe aortic stenosis Current Visit: Yes Status: Acute Patient prosthesis mismatch, resultant severe prosthetic aortic valve stenosis. Evaluated by cardiothoracic surgery and [facility] last year who deeemed poor/risk prohibitive candidate for repeat operation and valve replacement. She was also offered referral to [place] to discuss possible percutaneous techniques (valve in valve) and she declines. Continue medical management. Pt is DNR-CCA-DNI. (2) History of aortic valve replacement Current Visit: No Status: Acute Previous surgical AVR now with patient prosthesis mismatch as above. (3) CAD (coronary artery disease) Current Visit: Yes Status: Acute CAD, prior CABG. LVEF is preserved. Recommend continue aspirin, statin, beta rosi, and Ranexa therapy. Risk factor modification encouraged. Qualifiers: Coronary Disease-Associated Artery/Lesion type: [place] artery [place] vs. transplanted heart: citizen [place] heart Associated angina: without angina Qualified Code(s): I25.10 - Atherosclerotic heart disease of citizen [place] coronary artery without angina pectoris (4) Hypertension Current Visit: No Status: Chronic ACEi was stopped during stay d/t JU on CKD, replaced with Hydralazine 25mg TID. BP most recently 108 systolic. Recommend stopping hydralazine, as it could worsen valve gradients. Continue to hold Lisinopril. Can re-evaluate as outpt if further BP control is needed or if Lisinopril can be restarted. Qualifiers: Hypertension type: essential hypertension Qualified Code(s): I10 - Essenti al (primary) hypertension (5) Elevated troponin Current Visit: Yes Status: Chronic Troponin 0.05 x 3. Chronically elevated troponins, currently in setting of severe and fluid overload on presentation. Suspect demand ischemia, nondiagnostic for ACS. EF preserved on TTE. (6) Fluid overload Current Visit: Yes Status: Acute Presented with dyspnea and BLE edema in setting of JU on CKD. BNP 1741. CXR negative. Pt was diuresed. Cumulative I/O -1330mL. Pt reports feeling back to baseline. Recommend I/Os, Na and fluid restriction, daily weights. Qualifiers: Hypervolemia type: unspecified Qualified Code(s): E87.70 - Fluid overload, unspecified Discussion w patient/family: The assessment and plan as outlined above was discussed with the patient and/or family members who expressed understanding and agreement. All questions were answered. Thank you for involving us in the care of your patient. Please call with any questions. I will discuss all the above with Dr. Rabago and make changes as necessary. History of Present Illness Consult date: 03/15/19 Consult reason: CHF Chief complaint: dyspnea, LE edema History of present illness: Ms. Guajardo is a 78 year old female with PMH of CAD and aortic stenosis. CABG 2V and bioprosthetic aortic valve replacement (09/2012). Unfortunately, her surgery was complicated by postoperative heart block requiring a pacemaker placement. Serial postoperative echocardiograms have demonstrated evidence of significant prosthetic stenosis suggestive of patient-prosthesis mismatch. She declines further surgery and is DNR-CCA-DNI. Pt presented to ED for worsening dyspnea and BLE edema for the past 2-3 days. She was diuresed. ACEi was stopped d/t JU on CKD. Cardiology consulted for med recs. Reports breathing and LE edema are now back to baseline. Previous testing: TTE 03/13/19: LVEF 60%. LV diastolic dysfunction with elevated filling pressures. Atypical septal motion. Severe cLVH. RV is dilated with mild reduction in systolic function. Bi-atrial enlargement. Severe bioprosthetic . Mild, eccentric probably paravalvular regurgitation. Moderate mitral regurgitation. Severe tricuspid regurgitation. Mild pulmonic regurgitation. Severe pulmonary hypertension. A device lead was visualized in the right atrium and right ventricle. The IVC is dilated. LHC 03/30/2018 demonstrated severe CAD, including a significant left main stenosis, 1/2 patent bypass graft. Patient transferred to [facility] for further evaluation. Patient evaluated by CT surgery for surgical AVR - Dr. 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 CT angiogram TAVR evaluation 04/01/2018 ([facility]): Prosthetic valvular aortic stenosis. Although the prosthetic leaflets are not visualized, there is hypodense material in the base and along the lateral allred of the prosthesis. These may represent pannus formation or thrombus. Codominant coronary arterial system with calcifications and blooming artifact. Status post CABG with patent ALVARADO to LAD. Occluded aortocoronary graft. Moderate to severe concentric LVH with preserved systolic function. Severe mitral annular Ossification was severe left atrial enlargement. 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 Past Med Surg Social Fam HX - Past Medical History Medical history: CHF, coronary artery disease, hyperlipidemia, hypertension, myocardial infarction, pulmonary embolus, renal disease, thyroid disease, valvular heart disease, other Additional medical history: GOUT Psychiatric history: no psych history - Past Surgical History Surgical History: carotid endarterectomy, heart valve replacement, knee replacement - Social History Smoking Status: Never smoker Smokeless Tobacco Status: No Alcohol use: none Drug use: none - Family History Mother Living Status: Father Living Status: Medications and Allergies Aspirin [Ecotrin] 325 mg PO DAILY 03/11/18 [History] Levothyroxine [Synthroid] 88 mcg PO 0630 03/11/18 [History] Metoprolol [Lopressor] 50 mg PO BID 03/11/18 [History] Nitroglycerin 0.4 mg SL PRN PRN #30 tab.subl 01/18/19 [Rx] Atorvastatin Calcium [Lipitor] 20 mg PO HS 03/14/19 [History] Lisinopril-HCTZ 10-12.5 [Prinzide 10-12.5] 1 tab PO DAILY 03/14/19 [History] Ranolazine [Ranexa] 500 mg PO BID 03/14/19 [History] Allergy/AdvReac Type Severity Reaction Status Date / Time No Known Allergies Allergy Verified 12/05/18 10:34 All Systems Review: The remainder of the systems were reviewed and are negative - Cardiovascular Cardiovascular: as per HPI, dyspnea at rest, dyspnea on exertion, leg edema - Respiratory Respiratory: dyspnea Physical Examination Vital Signs Temp Pulse Resp BP Pulse Ox 03/15/19 07:30 97.6 F 60 18 149/66 95 03/15/19 04:58 97.7 F 61 17 120/53 96 03/15/19 00:23 97.6 F 60 17 133/73 96 03/14/19 19:04 97.5 F L 60 17 119/65 96 03/14/19 16:26 97.3 F L 60 20 150/70 99 Intake and Output 03/14/19 03/15/19 03/15/19 23:59 07:59 15:59 Intake Total 250 / 600 120 / 120 Output Total 900 / 1400 Balance -650 / -800 120 / 120 Intake: Oral 250 / 590 120 / 120 Output: Urine 900 / 1400 Other: Meal Breakfast Percent of Meal Consumed 100% Weight 78.6 kg Patient Weight 03/15/19 23:59 Weight 78.6 kg General: Conversant, No Apparent Distress HEENT: Atraumatic, Normocephaly, Mucus Membranes Moist Neck: Normal carotid pulses Cardiac: Other (grade 3 [place]) Lungs: Other (diminished) Neuro: Alert and responsive, No focal deficits noted Abdomen: Soft, Non-Tender Skin: No rashes noted on visualized skin Musculoskeletal: No Chest Wall Tenderness Extremities: Other (mild BLE edema) Results 03/14/19 00:58 03/15/19 08:04 Lab Results 03/15/19 08:04 Sodium 144 Potassium 3.8 Chloride 103 Carbon Dioxide 30 H BUN 34 H Creatinine 1.93 H Glucose 101 Calcium 10.3 BMP 03/15/19 Range/Units 08:04 Sodium 144 (136-145) mEq/L Potassium 3.8 (3.5-5.1) mEq/L Chloride 103 (98-107) mEq/L Carbon Dioxide 30 H (23-29) mEq/L BUN 34 H (8-23) mg/dL Creatinine 1.93 H (0.60-1.20) mg/dL Glucose 101 (70-105) mg/dL Calcium 10.3 (8.6-10.3) mg/dL Impressions Echocardiogram 03/13/19 15:35 Impressions: LVEF 60%. LV diastolic dysfunction with elevated filling pressures. Atypical septal motion. Severe concentric left ventricular hypertrophy. Right ventricle is dilated with mild reduction in systolic function. Bi-atrial enlargement. Severe bioprosthetic aortic stenosis. Mild, eccentric probably paravalvular regurgitation. Moderate mitral regurgitation. Severe tricuspid regurgitation. Mild pulmonic regurgitation. Severe pulmonary hypertension. A device lead was visualized in the right atrium and right ventricle. The IVC is dilated. Left Ventricular Wall Motion: Rest Echo Findings All wall segments showed normal motion. Findings: Study Quality * Technically adequate exam. ECG Findings * Normal sinus rhythm. Left Ventricle * LVEF 60%. * LV diastolic dysfunction with elevated filling pressures. * Atypical septal motion. * Severe concentric left ventricular hypertrophy. Right Ventricle * Right ventricle is dilated with mild reduction in systolic function. Left Atrium * Severely dilated left atrium. Right Atrium * Moderately dilated right atrium. Mitral Valve * Mildly calcified mitral valve leaflets. * Moderate mitral annular calcification * Mildly thickened mitral valve leaflets. * Moderate mitral regurgitation. * No mitral stenosis. Aortic Valve * Mild, eccentric probably paravalvular aortic regurgitation. * Aortic valve not well visualized. * Prosthetic aortic stenosis. Tricuspid Valve * Normal tricuspid valve structure. * Severe tricuspid regurgitation. * Estimated RA pressure is 20 mmHg. * Estimated RVSP is 76 mmHg. * Severe pulmonary hypertension. Pulmonic Valve * Pulmonic valve is not well visualized. * No pulmonic stenosis. * Mild pulmonic regurgitation. Pulmonary Artery * Pulmonary artery not well visualized. Aorta * Not well visualized. Pericardium * There is no pericardial effusion present. Device lead * A device lead was visualized in the right atrium and right ventricle. Interatrial Septum * No evidence of PFO by color Doppler. IVC * The IVC is dilated. * < 50% respiratory change. Active Medications Albuterol Sulfate (Albuterol Inhaler) 2 puff IH Q4H PRN PRN Reason: Shortness Of Breath Stop: 09/12/19 15:11 Allopurinol (Zyloprim) 100 mg PO DAILY PRN PRN Reason: GOUT Stop: 09/12/19 15:11 Aspirin (Aspirin Ec) 325 mg PO DAILY [facility] Stop: 09/13/19 09:01 Last Admin: 03/15/19 08:19 Dose: 325 mg Documented by: Atorvastatin Calcium (Lipitor) 20 mg PO HS [facility] Stop: 09/12/19 21:01 Last Admin: 03/14/19 21:45 Dose: 20 mg Documented by: Cyanocobalamin (Vitamin B12) 1,000 mcg PO DAILY [facility] Stop: 09/14/19 09:16 Heparin Sodium (Porcine) (Heparin) 5,000 unit SQ Q8HCO [facility] Stop: 09/12/19 22:01 Last Admin: 03/15/19 04:51 Dose: 5,000 unit Documented by: Hydralazine HCl (Hydralazine) 10 mg IVP Q6HR PRN PRN Reason: Hypertension Stop: 09/12/19 15:16 Last Admin: 03/13/19 18:07 Dose: 10 mg Documented by: Hydralazine HCl (Hydralazine) 25 mg PO QID [facility] Stop: 09/14/19 09:01 Hydroxyzine HCl (Hydroxyzine) 10 mg PO HS PRN PRN Reason: Insomnia Stop: 09/13/19 03:37 Last Admin: 03/14/19 21:45 Dose: 10 mg Documented by: Ceftriaxone Sodium 1,000 mg/ (Sterile Water) 10 mls @ 600 mls/hr IVP DAILY [facility] Stop: 09/13/19 15:01 Last Admin: 03/15/19 08:19 Dose: 600 mls/hr Documented by: Levothyroxine Sodium (Synthroid) 100 mcg PO 0630 [facility] Stop: 09/14/19 06:31 Last Admin: 03/15/19 04:51 Dose: 100 mcg Documented by: Metoprolol Tartrate (Lopressor) 50 mg PO BID [facility] Stop: 09/12/19 21:01 Last Admin: 03/15/19 08:19 Dose: 50 mg Documented by: Naloxone HCl (Narcan) 0.4 mg IVP Q2MPRN PRN PRN Reason: SEE COMMENTS Stop: 09/12/19 14:55 Nitroglycerin (Nitroglycerin) 0.4 mg SL Q5MPRN PRN PRN Reason: Chest Pain Stop: 09/12/19 15:11 Omeprazole (Prilosec) 20 mg PO DAILY@0630 [facility]; Protocol Stop: 09/13/19 06:31 Last Admin: 03/15/19 04:51 Dose: 20 mg Documented by: Ranolazine (Ranexa) 500 mg PO BID [facility] Stop: 09/12/19 21:01 Last Admin: 03/15/19 08:19 Dose: 500 mg Documented by: - Imaging and Cardiology Echo: report reviewed - EKG Interpretation EKG results cardiology: other (12 hr tele AVG HR 61, paced) Consult Discharge Plan - Plan Referrals: Candy Beverly MD [Primary Care Provider] -
[2019-03-15 11:41] VITALS: BP 108/63
--- NOTE | 2019-03-15 14:32 | Discharge Summary ---
- NOTES TO OUTPATIENT PROVIDER Notes to Outpatient Provider: PCP follow renal function in 3 days. TFTS in 4 weeks, synthroid was increased Orders not resulted at time of discharge: Pending orders 03/13/19 12:34 ECG 12 lead ECG [ECG] Stat Date of Encounter: 03/15/19 Time of Encounter: 08:00 - Discharge Diagnosis (1) Acute on chronic diastolic (congestive) heart failure Priority: Primary Status: Chronic (2) Aortic stenosis Priority: Secondary Status: Chronic Qualifiers: Cardiac valve disease etiology: etiology unspecified Qualified Code(s): I35.0 - Nonrheumatic aortic (valve) stenosis (3) Acute renal failure superimposed on stage 3 chronic kidney disease Priority: Secondary Status: Acute Qualifiers: Acute renal failure type: unspecified Qualified Code(s): N17.9 - Acute kidney failure, unspecified; N18.3 - Chronic kidney disease, stage 3 (moderate) (4) Acute on chronic anemia Priority: Secondary Status: Acute (5) Elevated troponin Priority: Secondary Status: Acute (6) Hypertension Priority: Secondary Status: Chronic Qualifiers: Hypertension type: essential hypertension Qualified Code(s): I10 - Essential (primary) hypertension (7) Hypothyroidism Priority: Secondary Status: Chronic Qualifiers: Hypothyroidism type: unspecified Qualified Code(s): E03.9 - Hypothyroidism, unspecified (8) Goals of care, counseling/discussion Priority: Secondary Status: Acute (9) DVT prophylaxis Priority: Secondary Status: Acute (10) UTI (urinary tract infection) Priority: Secondary Status: Acute Qualifiers: Urinary tract infection type: acute cystitis Hematuria presence: without hematuria Qualified Code(s): N30.00 - Acute cystitis without hematuria (11) Obesity (BMI 30.0-34.9) Priority: Secondary Status: Acute Hospital course: " Ms. Guajardo is a 78 year old female with history of aortic stenosis status post replacement and restenosis, heart failure preserved ejection fraction presented to the emergency department with complaint of shortness of breath. As per patient her shortness of breath started 3 days ago and is progressively worsening. She is unable to complete her every day tasks, it has become more difficult for her to ambulate around her house over the past 3 days. On the morning of admission she was unable to catch her breath with minimal exertion so she decided to come to the emergency department. She denies cough, chest pain or palpitations however does report orthopnea and PND over the past 3 days. In addition she complains of bilateral lower extremity swelling. She reports that she has an aortic valve stenosis which was repaired however unfortunately it was restenosed again and it has been found that it is an operable by [place] [facility] and also administrative resident at [facility]. She understand that her symptoms are likely related to her severe aortic stenosis and given her elevated BNP and troponin she has poor prognosis she understands. She wishes to be DNR CCA DNI and she has made her her decision maker in any event that she cannot make her own decisions. She denies fever, chills, cough, recent upper respiratory tract infections, nausea, vomiting or diarrhea. She denies prolonged immobilization or calf tenderness, has never had any blood clots in the past." Patient presented with above presentation and had above ED course. BNP 1741, CXR without vascular congestion however she has LE edema, renal functions were elevated as compared to her baseline of 1.5. She was diuresed with IV Lasix with -1330 mL balance. Lasix was discontinued to avoid overdiuresis as she has severe stenosis. Her shortness of breath and edema improved and she was at baseline. ARB on hold as she has ARF, she was started on hydralazine however as per cardiology "BP most recently 108 systolic. Recommend stopping hydralazine, as it could worsen valve gradients. Continue to hold Lisinopril. Can re-evaluate as outpt if further BP control is needed or if Lisinopril can be restarted." troponin was 0.05 x 3 on admission and as it was trended. Has chronic elevated troponins. Was recently admitted in January 15 troponin trended 0.25-0.72-0.88-0.38. Cardiology was consulted in December and "Minimal elevation of troponin, may be due to demand ischemia, may have underlying worsening of CAD, however pt elects for medical tx only, continue current tx. " Elevated troponin is most likely residual from last admission and also related to her severe aortic stenosis however cannot rule out underlying worsening CAD in setting of her acute renal failure on CKD. she declines any further cardiac work up that is invasive. has declined TAVR as it was offered by the cardiology team. cardiology Recommend continue "aspirin, statin, beta rosi, and Ranexa therapy. Risk factor modification encouraged." i discussed with Dr. sanchez and it was recommended to hold ACEI and HCTZ for now until she follows up with PCP to have renal functions repeated and with cardiology Synthroid was increased 100 g per day as her TSH was 14.7 she is to follow-up thyroid function tests in 4 weeks and for PCP to adjust Synthroid dose as per their discretion. Goals of care were discussed with the patient and she wished her CODE STATUS to be DNR CCA DNI. She refused hospice. She understands that she has critical aortic stenosis and declines any further invasive cardiac procedures. TAVR was recommended by cardiology however she refused. TTE was repeated again on this admission which showed severe aortic stenosis- full report below UA was positive and urine cx with klebsiella sensitive to ceftriaxone- she was discharged with omicef for 5 days to complete course ( 300 mg daily as GFR is <30) She also refused home health or home PT. for PCP to follow BMP in 3 days for renal functions closely and for her to followup with cardiology team in regards to restart her medications. H/h was at baseline of 11, B12 was low so she was started on oral supplementation to follow level in 2 weeks and to follow CBC with bmp in 3 days was counseled on Na and fluid restriction, daily weights extensively and she understands. tte 03/15/19-Impressions: LVEF 60%. LV diastolic dysfunction with elevated filling pressures. Atypical septal motion. Severe concentric left ventricular hypertrophy. Right ventricle is dilated with mild reduction in systolic function. Bi-atrial enlargement. Severe bioprosthetic aortic stenosis. Mild, eccentric probably paravalvular regurgitation. Moderate mitral regurgitation. Severe tricuspid regurgitation. Mild pulmonic regurgitation. Severe pulmonary hypertension. A device lead was visualized in the right atrium and right ventricle. The IVC is dilated. Discharge discussed with: patient, nurse, social work, case management, advertising consultant - Time Spent with Patient Total time spent providing and/or coordinating discharge services: Time spent: Greater than 30 minutes (35) - Discharge Medications Prescriptions: New Levothyroxine [Synthroid] 100 mcg PO 0630 #30 tablet Cyanocobalamin (B-12) [Vitamin B12] 1,000 mcg PO DAILY #14 tablet Cefdinir [Omnicef] 300 mg PO DAILY #5 capsule Continued Nitroglycerin 0.4 mg SL PRN PRN #30 tab.subl PRN Reason: Chest Pain Atorvastatin Calcium [Lipitor] 20 mg PO HS Ranolazine [Ranexa] 500 mg PO BID Metoprolol [Lopressor] 50 mg PO BID Aspirin [Ecotrin] 325 mg PO DAILY Discontinued Lisinopril-HCTZ 10-12.5 [Prinzide 10-12.5] 1 tab PO DAILY Levothyroxine [Synthroid] 88 mcg PO 0630 Home Medications: Aspirin [Ecotrin] 325 mg PO DAILY 03/11/18 [History] Metoprolol [Lopressor] 50 mg PO BID 03/11/18 [History] Nitroglycerin 0.4 mg SL PRN PRN #30 tab.subl 01/18/19 [Rx] Atorvastatin Calcium [Lipitor] 20 mg PO HS 03/14/19 [History] Ranolazine [Ranexa] 500 mg PO BID 03/14/19 [History] Cefdinir [Omnicef] 300 mg PO DAILY #5 capsule 03/15/19 [Rx] Cyanocobalamin (B-12) [Vitamin B12] 1,000 mcg PO DAILY #14 tablet 03/15/19 [Rx] Levothyroxine [Synthroid] 100 mcg PO 0630 #30 tablet 03/15/19 [Rx] Allergies/Adverse Reactions: Allergy/AdvReac Type Severity Reaction Status Date / Time No Known Allergies Allergy Verified 12/05/18 10:34 Date of admission: 03/13/19 14:53 Primary care physician: Candy Beverly MD Consults: 03/13/19 15:35 Consult to Palliative Care [CONS] Routine Comment: Consulting Provider: Palliative Care Zeinab Reason for Consult: has critical that is "inoperable" is DNR/DNI and will make decisions incase she cannot. intermediate prognosis is poor maybe a hospice candidate Call Completed: No 03/13/19 15:37 Consult to Physical Therapy [CONS] Routine Comment: Evaluate, develop and implement POC Reason for Consult: dispostion Does patient have active BEDREST order?: No Is patient medically & hemodynamically stable?: Yes Patient assessed for mobility or mobilized this visit?: Yes OT [Consult to Occupational Therapy] [CONS] Routine Comment: Evaluate, develop and implement POC Reason for Consult: disposition Does patient have active BEDREST order?: No Is patient medically & hemodynamically stable?: Yes Patient assessed for mobility or mobilized this visit?: Yes 03/15/19 08:05 Consult to Cardiology [CONS] Routine Comment: Consulting Provider: Cardiology Zeinab Reason for Consult: follows with Dr. sanchez has severe and refusing surgery adn it has been found inoperable. was on ACEI however has JU so i switched to hydralazine. was also fluid overloaded and recieved 2 doses of lasix with -1460 balance. i made sure to avoid overdiuresing. need help with discharge medications since she now has ARF on CKD and ACEI is held Call Completed: No 03/15/19 08:46 Consult to Nurse Navigator [CONS] Routine Comment: chf - Constitutional Vitals: Temp Pulse Resp BP Pulse Ox 97.6 F 64 18 108/63 97 03/15/19 11:33 03/15/19 11:33 03/15/19 11:33 03/15/19 11:33 03/15/19 11:33 Exam: General: Patient is alert, oriented, no acute distress, obese Head: atraumatic, normocephalic, Eye: normal appearance, PERRL, no scleral icterus, no conjunctival injection ENT: mucous membranes moist, normal external ear exam Neck: normal inspection, trachea midline, full ROM Chest: normal inspection, symmetric chest rise Respiratory: Distant breath sounds secondary to body habitus, Good respiratory effort. Bilateral breath sounds are clear without wheezing, crackles, or rhonchi. Cardiovascular: Regular rate and rhythm. s1 and s2 systolic ejection murmur at the right second intercostal space parasternally, radiating to the carotids, has device in the left chest without any signs of infection. Abdomen: Bowel sounds present normoactive x-4 quadrants. Abdomen is soft, nondistended. no Epigastric tenderness. No guarding or rebound. No organomegaly noted, obese musculoskeletal: Spontaneously moving all extremities. Trace edema bilateral lower extremities, no calf discoloration, no calf tenderness Skin: warm, dry, intact. Neuro: Alert and oriented x4. no focal deficit Psych: Patient's affect is normal - Patient Status Disposition: Home, Self-Care Condition: Fair Functional capacity at discharge: independent ambulation Overall status at discharge: patient is progressing back to baseline - Discharge Instructions Instructions: Cefdinir (By mouth), Vitamin B-12 (Cyanocobalamin) (By mouth) Follow Up With: Jayme Sanchez DO [Partnered Physician] - (cardio office will call patient for an appt.) Candy Beverly MD [Primary Care Provider] - 03/18/19 10:30 am (Please follow up as schedule...) Additional Instructions: follow BMP in 3 days for renal functions and for PCP to adjust medications as per their discretion. , follow TFTs in 1 month follow b12 in 2 weeks follow cbc in 3 days - Diet and Activity Activity: increase activity as tolerated Diet: low salt diet (cardiac )
== END 2019-03-15 18:02 | disposition home or self-care (01) ==
LOC: EMEROOARM 12:10 → 2ANU 12:10
PROVIDERS: ADMIT Internal Medicine Nephrology; ATTEND Internal Medicine Nephrology

== ENCOUNTER 2019-06-21 16:36 | Observation (INO) ==
[2019-06-21] MEDS ORDERED: Isovue-370 500 ML BOTTLE IVP ONE (17:07)
[2019-06-21 17:47] LABS: Basophils % 0.4 %; Eosinophils % 0.2 %; Hematocrit 43.5 % (35.3-44.9); Hemoglobin 13.4 g/dL (11.5-15.4); Immature Granulocytes % 0.5 % (0-4); Lymphocytes % 9.9 %; Mean Corpuscular HGB Conc 30.8 g/dL (31.6-35.5); Mean Corpuscular Hemoglobin 30.5 pg (28.0-33.3); Mean Corpuscular Volume 99.1 fL (83.0-100.0); Mean Platelet Volume 11.4 fL (9.4-12.4); Monocytes # 1.1 K/mcL (0.0-1.3); Monocytes % 10.9 %; Neutrophils # 7.9 K/mcL (1.6-8.9); Platelet Count 205 K/mcL (140-400); Red Blood Count 4.39 M/mcL (3.82-4.97); Red Cell Distribution Width 16.7 % (11.5-14.5); Segmented Neutrophils % 78.1 %; White Blood Count 10.1 K/mcL (4.3-11.1)
[2019-06-21 17:55] LABS: INR 1.6; Prothrombin Time 17.8 Seconds (9.4-12.1)
[2019-06-21 17:58] LABS: Activated Partial Thrombo Time 45.5 Seconds (26.0-36.0)
--- NOTE | 2019-06-21 18:12 | Emergency Department Note ---
Disposition Clinical Impression: Right leg pain, Peripheral edema, Shortness of breath, Elevated troponin Chest pain Qualifiers: Chest pain type: unspecified Qualified Code(s): R07.9 - Chest pain, unspecified Disposition: Admitted As Inpatient Condition: Good Time of Disposition: 19:27 Extremity Problem HPI - General Chief complaint: ED Chest Pain Stated complaint: chest pain Time Seen by Provider: 06/21/19 17:08 Source: patient Limitations: no limitations Nursing Notes Reviewed: Yes Vital Signs Reviewed: Yes - History of Present Illness HPI Narrative: 78F Hx HTN, HLD, CAD/KS/CABG, CHF, DVT/PE, PAD. Seen at [facility] yesterday with RLE pain & swelling, worsening x 2 weeks. Given a Lovenox injection and asked to return today for US. This was done and was reportedly negative, but she was sent here for further evaluation. Pt reports exertional left-sided chest pressure, radiating to the back, for the past 7 years. Remote Hx DVT, currently just on ASA. Pt Subjective Complaint: extremity pain, extremity swelling Onset (ago): week(s) (2) Consistency: Worsening Injury Location: right, lower extremity Pain Scale: 8 Quality: aching Improves with: nothing Worsens with: nothing Associated symptoms: Reports: chest pain (chronic, unchanged), shortness of breath (chronic, unchanged), swelling. Denies: abdominal pain, bowel/bladder symptoms, fever, redness Context: history of DVT - Related Data Home Medications Medication Instructions Recorded Confirmed Aspirin [Ecotrin] 325 mg PO DAILY 03/11/18 06/20/19 Metoprolol [Lopressor] 50 mg PO BID 03/11/18 06/20/19 Atorvastatin Calcium [Lipitor] 20 mg PO HS 03/14/19 06/20/19 Ranolazine [Ranexa] 1,000 mg PO BID 03/14/19 06/20/19 Allopurinol [Zyloprim 300 MG] 300 mg PO DAILY 06/06/19 06/20/19 Levothyroxine [Synthroid] 88 mcg PO 0630 06/06/19 06/20/19 Lisinopril-HCTZ 10-12.5 [Prinzide 1 each PO DAILY 06/06/19 06/20/19 10-12.5] Omeprazole [PriLOSEC] 20 mg PO DAILY 06/06/19 06/20/19 Ropinirole HCl [Requip] 0.25 mg PO HS 06/06/19 06/20/19 Previous Rx's Medication Instructions Recorded Nitroglycerin 0.4 mg SL PRN PRN #30 tab.subl 01/18/19 Cyanocobalamin (B-12) [Vitamin B12] 1,000 mcg PO DAILY #14 tablet 03/15/19 Furosemide [Lasix] 20 mg PO DAILY #3 tablet 06/06/19 Allergies Allergy/AdvReac Type Severity Reaction Status Date / Time No Known Allergies Allergy Verified 06/21/19 16:38 All systems ED: reviewed and negative except as stated. Constitutional: Denies: fever Cardiovascular: Reports: chest pain, dyspnea on exertion Respiratory: Reports: dyspnea. Denies: cough, hemoptysis Gastrointestinal: Denies: abdominal pain Musculoskeletal: Denies: back pain, neck pain Neurological: Denies: headache, weakness, numbness Past Medical History - Past Medical History Medical history: Reports: CHF, coronary artery disease, hyperlipidemia, hyperten ike, myocardial infarction, pulmonary embolus, renal disease, thyroid disease, valvular heart disease, other Surgical history: Reports: carotid endarterectomy, heart valve replacement, knee replacement Psychiatric history: Reports: no psych history [employer] history: Reports: no [employer] history - Social History Smoking Status: Never smoker Smokeless Tobacco Status: No Alcohol use: Reports: none Drug use: Reports: none Physical Exam - General Limitations: no limitations General appearance: alert, in no apparent distress - Head Head exam: atraumatic, normocephalic - Eye Eye exam: Present: normal appearance - ENT ENT exam: normal exam - Neck Neck exam: Present: normal inspection - Respiratory Respiratory exam: Present: other (scattered rhonchi). Absent: respiratory distress - Cardiovascular Cardiovascular exam: Present: regular rate, normal rhythm, normal heart sounds - Abdominal Exam Abdominal exam: Present: soft, Non-Tender. Absent: distention, guarding, rebound, rigidity - Extremities Exam Extremities exam: Present: calf tenderness, other (asymmetric right calf swelling, tenderness, no erythema) - Expanded Lower Extremity Exam Hip/Pelvis exam: Present: normal inspection - Neurological Exam Neurological exam: Present: alert, oriented X3. Absent: motor sensory deficit - Psychiatric Psychiatric exam: Present: normal affect, normal mood - Skin Skin exam: Present: warm, dry, intact. Absent: erythema Course - Reevaluation(s) Reevaluation #1: Pt resting comfortably. Discussed test results. She is in agreement with admission for further chest pain eval. Time: 19:15 - Consultations Consultation #1: D/w hospitalist. We will admit for CP rule out, heparinize pending VQ. Time: 20:00 Vital Signs Temperature 97.5 F L 06/21/19 16:38 Pulse Rate 61 06/21/19 16:38 Respiratory Rate 15 06/21/19 16:38 Blood Pressure 119/65 06/21/19 16:38 O2 Sat by Pulse Oximetry 97 06/21/19 16:38 Temperature 97.5 F L 06/21/19 16:55 Pulse Rate 60 06/21/19 20:38 Respiratory Rate 14 06/21/19 20:38 Blood Pressure 131/59 06/21/19 20:38 O2 Sat by Pulse Oximetry 99 06/21/19 20:38 Oxygen Delivery Oxygen Delivery Room Air Extremity Problem, Nontraumati - MDM Narrative Medical decision making narrative: Patient's Hx and exam are strongly suggestive of DVT but duplex study reportedly negative. The report is not in the system so I'm contacting [facility] to get it. If not available, we will need to repeat the duplex study. 19:15 - Duplex study confirmed negative. - Lab Data Lab results narrative: CBC unremarkable BNP up but consistent with previous Result diagrams: 06/21/19 17:30 06/21/19 18:28 Lab Results 06/21/19 06/21/19 06/21/19 Range/Units 17:30 17:30 17:30 WBC 10.1 (4.3-11.1) K/mcL RBC 4.39 (3.82-4.97) M/mcL Hgb 13.4 (11.5-15.4) g/dL Hct 43.5 (35.3-44.9) % MCV 99.1 (83.0-100.0) fL MCH 30.5 (28.0-33.3) pg MCHC 30.8 L (31.6-35.5) g/dL RDW 16.7 H (11.5-14.5) % Plt Count 205 (140-400) K/mcL MPV 11.4 (9.4-12.4) fL Immature Gran % 0.5 (0-4) % Seg Neutrophils % 78.1 % Lymphocytes % 9.9 % Monocytes % 10.9 % Eosinophils % 0.2 % Basophils % 0.4 % Neutrophils # 7.9 (1.6-8.9) K/mcL Lymphocytes # 1.0 (0.6-4.6) K/mcL Monocytes # 1.1 (0.0-1.3) K/mcL Eosinophils # 0.0 (0.0-0.6) K/mcL Basophils # 0.0 (0.0-0.2) K/mcL PT 17.8 H (9.4-12.1) Seconds INR 1.6 APTT 45.5 H (26.0-36.0) Seconds Sodium (136-145) mEq/L Potassium (3.5-5.1) mEq/L Chloride (98-107) mEq/L Carbon Dioxide (23-29) mEq/L BUN (8-23) mg/dL Creatinine (0.60-1.20) mg/dL Est GFR ( Amer) (> 60) Est GFR (Non-Af Amer) (> 60) BUN/Creatinine Ratio (6-26) Glucose (70-105) mg/dL Calculated Osmolality (280-300) Calcium (8.6-10.3) mg/dL Troponin I (< 0.04) ng/mL B-Natriuretic Peptide 1534 H (Less than 100) pg/mL 06/21/19 Range/Units 18:28 WBC (4.3-11.1) K/mcL RBC (3.82-4.97) M/mcL Hgb (11.5-15.4) g/dL Hct (35.3-44.9) % MCV (83.0-100.0) fL MCH (28.0-33.3) pg MCHC (31.6-35.5) g/dL RDW (11.5-14.5) % Plt Count (140-400) K/mcL MPV (9.4-12.4) fL Immature Gran % (0-4) % Seg Neutrophils % % Lymphocytes % % Monocytes % % Eosinophils % % Basophils % % Neutrophils # (1.6-8.9) K/mcL Lymphocytes # (0.6-4.6) K/mcL Monocytes # (0.0-1.3) K/mcL Eosinophils # (0.0-0.6) K/mcL Basophils # (0.0-0.2) K/mcL PT (9.4-12.1) Seconds INR APTT (26.0-36.0) Seconds Sodium 138 (136-145) mEq/L Potassium 5.8 H (3.5-5.1) mEq/L Chloride 100 (98-107) mEq/L Carbon Dioxide 26 (23-29) mEq/L BUN 37 H (8-23) mg/dL Creatinine 2.52 H (0.60-1.20) mg/dL Est GFR ( Amer) 22 L (> 60) Est GFR (Non-Af Amer) 19 L (> 60) BUN/Creatinine Ratio 15 (6-26) Glucose 91 (70-105) mg/dL Calculated Osmolality 294 (280-300) Calcium 10.0 (8.6-10.3) mg/dL Troponin I 0.04 H* (< 0.04) ng/mL B-Natriuretic Peptide (Less than 100) pg/mL - Radiology Data Radiology results reviewed: Yes I reviewed the patient's radiology results. CXR - CMG, no failure 18:20 - Received call from [employer]. Venous duplex study from earlier today prelim negative. - EKG Data EKG attestation: Yes I reviewed and interpreted this EKG. EKG results narrative: AV paced at 60.
[2019-06-21 19:13] LABS: Potassium 5.8 mEq/L (3.5-5.1); Troponin I 0.04 ng/mL (< 0.04)
[2019-06-21] MEDS ORDERED: *HR* Heparin 5,000 UNIT/ML VIAL IVP PRN ×2 (19:56)
[2019-06-21] MEDS ORDERED: *HR* Heparin 5,000 UNIT/ML VIAL IVP ONE (19:56)
[2019-06-21] MEDS ORDERED: Heparin 25,000 UNIT/250 ML D5W 25,000 UNIT/250 ML IV.SOLN IVC SCH (20:00)
[2019-06-22] MEDS ORDERED: Naloxone 0.4 MG/ML INJ IVP PRN (04:26)
--- NOTE | 2019-06-22 04:45 | Internal Med History&Physical ---
Date of Encounter: 06/22/19 Time of Encounter: 03:45 Internal Medicine - H&P: HPI Chief complaint: Chest Pain, Shortness of breath, Left lower extremity swelling Admitted From: Home Plans for Post Hospital Care: Home History of present illness: Ms. Guajardo is a 78 year old female with past medical history significant for CAD, CABG, heart valve replacement, pacemaker, CHF, DVT, PE, hyperlipidemia, hypertension, renal disease, and thyroid disease who presents for complaints of chest pain and shortness of breath with exertion above her chronic baseline along with right lower extremity edema. Patient reports she has been visiting her who is in the [facility] and think she has been overexerting herself as her chest pain and shortness of breath has been worse than her baseline over the past week. Reports with exertion she gets short of breath and has left-sided chest pain rated at 7/10. Reports symptoms improved with rest. Also has been seen recently at [facility] ER for left lower ex tremity swelling and had ultrasound completed which ER confirmed was negative for DVT. ER was also concerned for potential of PE, so started patient on a heparin drip and plan to order VQ scan. ER reported EKG as paced rhythm. ER also obtained chest x-ray which showed cardiomegaly without acute process. While resting patient currently denies any headache, numbness, tingling, chest pain, shortness breath, cough, abdominal pain, bowel or bladder changes. Reports following regularly with her PCP, cardiology, and nephrology. Had echocardiogram completed during her last admission in February 2019 which showed a 60% EF. Reports she was previously on diuretics however due to her kidney function they have been stopped. Past Med Surg Social Fam HX - Past Medical History Medical history: CHF, coronary artery disease, hyperlipidemia, hypertension, myocardial infarction, pulmonary embolus, renal disease, thyroid disease, valvular heart disease, other Additional medical history: GOUT Psychiatric history: no psych history - Past Surgical History Surgical History: carotid endarterectomy, coronary bypass (CABG), heart valve replacement, knee replacement - Social History Smoking Status: Never smoker Smokeless Tobacco Status: No Alcohol use: none Drug use: none - Family History Mother Living Status: Hx Family Cancer: Yes (lung) Father Living Status: Hx Family Cancer: Yes Brother Hx Family Cardiac Disorders: Yes (DE) Internal Medicine - H&P: Meds Aspirin [Ecotrin] 325 mg PO DAILY 03/11/18 [History] Metoprolol [Lopressor] 50 mg PO BID 03/11/18 [History] Nitroglycerin 0.4 mg SL PRN PRN #30 tab.subl 01/18/19 [Rx] Atorvastatin Calcium [Lipitor] 20 mg PO HS 03/14/19 [History] Ranolazine [Ranexa] 1,000 mg PO BID 03/14/19 [History] Cyanocobalamin (B-12) [Vitamin B12] 1,000 mcg PO DAILY #14 tablet 03/15/19 [Rx] Allopurinol [Zyloprim 300 MG] 300 mg PO DAILY 06/06/19 [History] Furosemide [Lasix] 20 mg PO DAILY #3 tablet 06/06/19 [Rx] Levothyroxine [Synthroid] 88 mcg PO 0630 06/06/19 [History] Lisinopril-HCTZ 10-12.5 [Prinzide 10-12.5] 1 each PO DAILY 06/06/19 [History] Omeprazole [PriLOSEC] 20 mg PO DAILY 06/06/19 [History] Ropinirole HCl [Requip] 0.25 mg PO HS 06/06/19 [History] Allergy/AdvReac Type Severity Reaction Status Date / Time No Known Allergies Allergy Verified 06/21/19 16:38 All Systems PM: A 10-system review of systems was performed and is negative for pertinent findings except as documented above in the HPI. - Constitutional Vitals: Temp Pulse Resp BP Pulse Ox 97.6 F 60 16 101/62 98 06/22/19 03:12 06/22/19 03:12 06/22/19 03:12 06/22/19 03:12 06/22/19 03:12 Exam: General: Alert and oriented. Calm in no acute distress. Skin:Normal color, no rash, no lesions. Cardiovascular:Chronic murmur noted. No JVD. Pulse regular. Lungs:Normal breath sounds, no wheezes or crackles. Abdomen:Soft, non-tender, no rigidity. Extremities:No deformity, or clubbing. Bilateral pitting lower extremity edema noted. Right lower extremity much larger than left. Distal PMS intact. Neurological:Normal cognition and motor skills. Pulses:Carotid and radial pulses normal +2. Rest of the physical exam is non contributory. Internal Med - H&P Results - Labs CBC & Chem 7: 06/21/19 17:30 06/21/19 18:28 Labs: Short CBC 06/21/19 Range/Units 17:30 WBC 10.1 (4.3-11.1) K/mcL Hgb 13.4 (11.5-15.4) g/dL Hct 43.5 (35.3-44.9) % Plt Count 205 (140-400) K/mcL Neutrophils # 7.9 (1.6-8.9) K/mcL BMP 06/21/19 18:28 Sodium 138 Potassium 5.8 H Chloride 100 Carbon Dioxide 26 BUN 37 H Creatinine 2.52 H Glucose 91 Calcium 10.0 Cardiac Enzymes 06/21/19 06/22/19 Range/Units 18:28 00:46 Troponin I 0.04 H* 0.04 H* (< 0.04) ng/mL - Impressions ITS Impressions Chest X-Ray 06/21/19 17:36 IMPRESSION: Cardiomegaly without acute process. D/ / 06/21/2019 18:41:41 Teddy Luna [facility] Interpreting Provider: Teddy Luna MD - Assessment and Plan (1) Chest pain Current Visit: Yes Status: Acute Assessment and plan: Reports left-sided chest pain, worse with exertion, worse than baseline over past week. Reports resolution with rest. Continuous cardiac monitoring. Initial troponin in ER elevated at 0.04, serial troponins ordered. Cardiology consult ordered, will need called in a.m. Qualifiers: Chest pain type: unspecified Qualified Code(s): R07.9 - Chest pain, unspecified (2) Shortness of breath Current Visit: Yes Status: Acute Assessment and plan: Reports shortness of breath worse with exertion, worse than baseline, over past week. Patient reports resolution with rest. ER concerned for possible PE, plan for VQ scan in a.m. prophylactically started patient on heparin drip, will continue same until testing completed. Continuous pulse oximetry. (3) Right leg swelling Current Visit: Yes Status: Acute Assessment and plan: Reports right lower extremity swelling over past week. Had ultrasound completed at [facility], ER confirmed negative for DVT. Though right lower extremity still significantly swollen and tender, patient reports slight improvement currently. (4) Acute on chronic kidney failure Current Visit: Yes Status: Acute Assessment and plan: Acute on chronic. Creatinine elevated currently on admission at 2.52 up from 2.05 Avoid nephrotoxins as able. Nephrology consult ordered, will need called in a.m. Qualifiers: Chronic kidney disease stage: unspecified stage Qualified Code(s): N17.9 - Acute kidney failure, unspecified; N18.9 - Chronic kidney disease, unspecified (5) Hyperkalemia Current Visit: Yes Status: Acute Assessment and plan: Potassium elevated on presentation at 5.8 Stat repeat potassium ordered. (6) Elevated troponin Current Visit: Yes Status: Chronic Assessment and plan: Troponin chronically elevated. Troponin elevated at 0.04 on admission, previously 0.05 in February 2019. Serial troponins ordered. (7) Congestive heart failure Current Visit: Yes Status: Chronic Assessment and plan: Chest x-ray obtained in ER showed only cardiomegaly. Significant lower extremity edema, worse on right. Echocardiogram completed in February 2019 showing 60% EF. Cardiology consult ordered, will need called in a.m. Qualifiers: Heart failure chronicity: unspecified Qualified Code(s): I50.9 - Heart failure, unspecified - Time Spent With Patient Total time spent is greater than 50% in coordination of care (as documented) at patient's floor/unit and/or counseling patient:
[2019-06-22 05:27] LABS: Basophils # 0.1 K/mcL (0.0-0.2); Basophils % 0.8 %; Eosinophils # 0.1 K/mcL (0.0-0.6); Eosinophils % 0.6 %; Hematocrit 38.9 % (35.3-44.9); Hemoglobin 12.2 g/dL (11.5-15.4); Immature Granulocytes % 0.5 % (0-4); Lymphocytes % 23.6 %; Mean Corpuscular HGB Conc 31.4 g/dL (31.6-35.5); Mean Corpuscular Hemoglobin 31.1 pg (28.0-33.3); Mean Corpuscular Volume 99.2 fL (83.0-100.0); Mean Platelet Volume 11.3 fL (9.4-12.4); Monocytes % 11.7 %; Neutrophils # 5.4 K/mcL (1.6-8.9); Platelet Count 198 K/mcL (140-400); Red Blood Count 3.92 M/mcL (3.82-4.97); Red Cell Distribution Width 16.7 % (11.5-14.5); Segmented Neutrophils % 62.8 %; White Blood Count 8.6 K/mcL (4.3-11.1)
[2019-06-22 05:49] LABS: Calcium 9.7 mg/dL (8.6-10.3); Potassium 5.1 mEq/L (3.5-5.1)
[2019-06-22 07:09] VITALS: BP 106/62
--- NOTE | 2019-06-22 11:13 | Cardiology Consult Note ---
<Osvaldo Rios - Last Filed: 06/22/19 12:08> Date of Encounter: 06/22/19 Time of Encounter: 11:07 Assessment and Plan (1) Chest pain Current Visit: Yes Status: Acute Reports exertional chest pain when she overexerts herself, relieved with rest. Per pt, has had exertional chest pain for 2 years. Troponin 0.04, 0.05--chronically elevated troponins, nondiagnostic for ACS. BNP 1534, CXR cardiomegaly but no acute process. LHC 03/30/2018 demonstrated severe CAD, including a significant left main stenosis, 1/2 patent bypass graft. Pt is DNR-CCA-DNI. She declines invasive procedures including LHC. R/B/A discussed. Would recommend continued medical management--ASA, Statin, BB, Ranexa. Unable to add Imdur given severe . TTE 02/2019 EF preserved. VQ scan low probability for PE. Anticipate sign off once seen and evaluated by Dr. Chin. Qualifiers: Chest pain type: unspecified Qualified Code(s): R07.9 - Chest pain, unspecified (2) Elevated troponin Current Visit: Yes Status: Acute Troponin 0.04, 0.05. Chronically elevated troponins, in setting of severe . Suspect demand ischemia, nondiagnostic for ACS. EF preserved on TTE 02/2019. (3) Aortic valve stenosis Current Visit: No Status: Acute Hx of AVR. Patient prosthesis mismatch, resultant severe prosthetic aortic valve stenosis. Evaluated by cardiothoracic surgery and [facility] last year who deeemed poor/risk prohibitive candidate for repeat operation and valve replacement. She was also offered referral to [place] to discuss possible percutaneous techniques (valve in valve) and she declines. Continue medical management. Pt is DNR-CCA-DNI. Qualifiers: Cardiac valve disease etiology: nonrheumatic Qualified Code(s): I35.0 - Nonrheumatic aortic (valve) stenosis (4) CAD (coronary artery disease) Current Visit: No Status: Acute CAD, prior CABG. LVEF is preserved. Recommend continue aspirin, statin, beta rosi, and Ranexa therapy. Risk factor modification encouraged. Qualifiers: Coronary Disease-Associated Artery/Lesion type: [place] artery [place] vs. transplanted heart: [place] heart Associated angina: without angina Qualified Code(s): I25.10 - Atherosclerotic heart disease of [place] coronary artery without angina pectoris Discussion w patient/family: The assessment and plan as outlined above was discussed with the patient and/or family members who expressed understanding and agreement. All questions were answered. Thank you for involving us in the care of your patient. Please call with any questions. I will discuss all the above with Dr. Chin and make changes as necessary. History of Present Illness Consult date: 06/22/19 Consult reason: chest pain, dyspnea, Chief complaint: chest pain, dyspnea, LE edema History of present illness: Ms. Guajardo is a 78 year old female with PMH of CAD and aortic stenosis. CABG 2V and bioprosthetic aortic valve replacement (09/2012), PPM. Serial postoperative echocardiograms have demonstrated evidence of significant prosthetic stenosis suggestive of patient-prosthesis mismatch. She declines further surgery and is DNR-CCA-DNI. Pt presented to ED for worsening dyspnea, chest pain and BLE edema. Cardiology consulted for further recs. Previous testing: TTE 03/13/19: LVEF 60%. LV diastolic dysfunction with elevated filling pressures. Atypical septal motion. Severe cLVH. RV is dilated with mild reduction in systolic function. Bi-atrial enlargement. Severe bioprosthetic . Mild, eccentric probably paravalvular regurgitation. Moderate mitral regurgitation. Severe tricuspid regurgitation. Mild pulmonic regurgitation. Severe pulmonary hypertension. A device lead was visualized in the right atrium and right ventricle. The IVC is dilated. LHC 03/30/2018 demonstrated severe CAD, including a significant left main stenosis, 1/2 patent bypass graft. Patient transferred to [facility] for further evaluation. Patient evaluated by CT surgery for surgical AVR - Dr. 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 CT angiogram TAVR evaluation 04/01/2018 ([facility]): Prosthetic valvular aortic stenosis. Although the prosthetic leaflets are not visualized, there is hypodense material in the base and along the lateral allred of the prosthesis. These may represent pannus formation or thrombus. Codominant coronary arterial system with calcifications and blooming artifact. Status post CABG with patent ALVARADO to LAD. Occluded aortocoronary graft. Moderate to severe concentric LVH with preserved systolic function. Severe mitral annular Ossification was severe left atrial enlargement. 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 Past Med Surg Social Fam HX - Past Medical History Medical history: CHF, coronary artery disease, hyperlipidemia, hypertension, myocardial infarction, pulmonary embolus, renal disease, thyroid disease, valvular heart disease, other Additional medical history: GOUT Psychiatric history: no psych history - Past Surgical History Surgical History: carotid endarterectomy, coronary bypass (CABG), heart valve replacement, knee replacement - Social History Smoking Status: Never smoker Smokeless Tobacco Status: No Alcohol use: none Drug use: none - Family History Mother Living Status: Hx Family Cancer: Yes (lung) Father Living Status: Hx Family Cancer: Yes Brother Hx Family Cardiac Disorders: Yes ([place]) Medications and Allergies Aspirin [Ecotrin] 325 mg PO DAILY 03/11/18 [History] Metoprolol [Lopressor] 50 mg PO BID 03/11/18 [History] Nitroglycerin 0.4 mg SL PRN PRN #30 tab.subl 01/18/19 [Rx] Atorvastatin Calcium [Lipitor] 20 mg PO HS 03/14/19 [History] Ranolazine [Ranexa] 1,000 mg PO BID 03/14/19 [History] Allopurinol [Zyloprim 300 MG] 300 mg PO DAILY PRN 06/06/19 [History] Lisinopril-HCTZ 10-12.5 [Prinzide 10-12.5] 1 each PO DAILY 06/06/19 [History] Omeprazole [PriLOSEC] 20 mg PO DAILY 06/06/19 [History] Ropinirole HCl [Requip] 0.25 mg PO HS 06/06/19 [History] Levothyroxine [Synthroid] 88 mcg PO 0630 06/22/19 [History] Allergy/AdvReac Type Severity Reaction Status Date / Time No Known Allergies Allergy Verified 06/21/19 16:38 All Systems Review: The remainder of the systems were reviewed and are negative - Cardiovascular Cardiovascular: as per HPI, chest pain with exertion, dyspnea on exertion, leg edema - Respiratory Respiratory: dyspnea Physical Examination Vital Signs Temp Pulse Resp BP Pulse Ox 06/22/19 07:07 98 F 60 19 106/62 96 06/22/19 03:12 97.6 F 60 16 101/62 98 06/21/19 22:14 97.4 F L 60 16 139/67 06/21/19 21:34 18 119/59 06/21/19 20:38 60 14 131/59 99 06/21/19 16:55 97.5 F L 61 15 119/65 97 06/21/19 16:38 97.5 F L 61 15 119/65 97 Intake and Output 06/21/19 06/22/19 06/22/19 23:59 07:59 15:59 Intake Total 270 / 649 379 / 649 Output Total 350 / 350 Balance -80 / 299 379 / 299 Intake: IV Fluids 70 / 209 139 / 209 Heparin 25,000 UNIT/250 ML D5W 70 / 209 139 / 209 25,000 unit In 250 ml @ 14 UNIT /KG/HR 11.113 mls/hr IVC . [id number] GUS Rx#:[id number] Oral 200 / 440 240 / 440 Output: Urine 350 / 350 Other: Meal Breakfast Percent of Meal Consumed 50% Weight 82 kg 81.6 kg Patient Weight 06/22/19 23:59 Weight 81.6 kg General: Conversant, No Apparent Distress HEENT: Atraumatic, Normocephaly, Mucus Membranes Moist Neck: No JVD, Normal carotid pulses Cardiac: Reg Rate and Rhythm, Normal S1 and S2, No Murmur Lungs: Normal Breath Sounds, No Wheeze, Rales, Rhonchi Neuro: Alert and responsive, No focal deficits noted Abdomen: Soft, Non-Tender Skin: No rashes noted on visualized skin Musculoskeletal: No Chest Wall Tenderness Extremities: Other (RLE edema) Results 06/22/19 04:59 06/22/19 04:59 Lab Results 06/21/19 06/21/19 06/21/19 17:30 17:30 17:30 WBC 10.1 Hgb 13.4 Hct 43.5 Plt Count 205 INR 1.6 APTT 45.5 H Sodium Potassium Chloride Carbon Dioxide BUN Creatinine Glucose Calcium Troponin I B-Natriuretic Peptide 1534 H 06/21/19 06/22/19 06/22/19 18:28 00:46 04:59 WBC 8.6 Hgb 12.2 Hct 38.9 Plt Count 198 INR APTT Sodium 138 Potassium 5.8 H Chloride 100 Carbon Dioxide 26 BUN 37 H Creatinine 2.52 H Glucose 91 Calcium 10.0 Troponin I 0.04 H* 0.04 H* B-Natriuretic Peptide 06/22/19 06/22/19 04:59 06:45 WBC Hgb Hct Plt Count INR APTT Sodium 139 Potassium 5.1 Chloride 101 Carbon Dioxide 24 BUN 41 H Creatinine 2.74 H Glucose 78 Calcium 9.7 Troponin I 0.05 H* B-Natriuretic Peptide Short CBC 06/22/19 06/21/19 Range/Units 04:59 17:30 WBC 8.6 10.1 (4.3-11.1) K/mcL Hgb 12.2 13.4 (11.5-15.4) g/dL Hct 38.9 43.5 (35.3-44.9) % Plt Count 198 205 (140-400) K/mcL Neutrophils # 5.4 7.9 (1.6-8.9) K/mcL BMP 06/22/19 06/21/19 Range/Units 04:59 18:28 Sodium 139 138 (136-145) mEq/L Potassium 5.1 5.8 H (3.5-5.1) mEq/L Chloride 101 100 (98-107) mEq/L Carbon Dioxide 24 26 (23-29) mEq/L BUN 41 H 37 H (8-23) mg/dL Creatinine 2.74 H 2.52 H (0.60-1.20) mg/dL Glucose 78 91 (70-105) mg/dL Calcium 9.7 10.0 (8.6-10.3) mg/dL Cardiac Enzymes 06/22/19 06/22/19 06/21/19 Range/Units 06:45 00:46 18:28 Troponin I 0.05 H* 0.04 H* 0.04 H* (< 0.04) ng/mL Impressions Chest X-Ray 06/21/19 17:36 IMPRESSION: Cardiomegaly without acute process. D/ / 06/21/2019 18:41:41 Teddy Luna MD / earnocassandra Interpreting Provider: Teddy Luna MD Active Medications Heparin Sodium (Porcine) (Heparin) 5,600 unit 70 unit/kg (5600 unit) IVP Q6HR PRN PRN Reason: SEE COMMENTS Stop: 12/21/19 19:57 Heparin Sodium (Porcine) (Heparin) 2,800 unit 35 unit/kg (2800 unit) IVP Q6H PRN PRN Reason: SEE COMMENTS Stop: 12/21/19 19:57 Heparin Sodium/Dextrose (Heparin 25,000 Unit/250 Ml D5w) 25,000 unit in 250 mls @ 11.113 mls/hr IVC .[id number] [facility]; Protocol Stop: 12/21/19 20:01 Last Titration: 06/22/19 04:10 Dose: 11 unit/kg/hr, 8.7 mls/hr Documented by: Naloxone HCl (Narcan) 0.4 mg IVP Q2MPRN PRN PRN Reason: SEE COMMENTS Stop: 12/22/19 04:27 - Imaging and Cardiology Echo: report reviewed - EKG Interpretation EKG results cardiology: other (12 hr tele AVG HR 60, paced) Consult Discharge Plan - Plan Referrals: Candy Beverly MD [Primary Care Provider] - <Zeinab Chin - Last Filed: 06/22/19 15:03> Date of Encounter: 06/22/19 - Attending Attestation I examined this patient and my medical decision-making was reviewed with the TIER LIFT OPERATOR. I agree with the documented findings, disposition and treatment plan as described. Ms. Guajardo presents with dyspnea on exertion associated with chest pain. Has known CAD, CABG and bioprosthetic AVR with prosthetic valve stenosis. Patient has declined aggressive therapy and continues to do so. At the time of the exam, she is feeling back to her usual state of health. She denies active chest pain and feels her breathing is comfortable. Exam does demonstrate mild-moderate BLE edema. However, CXR without congestion, patient also oxygenating on room air. Diuresis has been cautious due to prosthetic stenosis of her AVR. However, can consider one time dose of 20mg IV lasix. Otherwise, can follow up as outpatient as patient reports she is going home today. Assessment and Plan Discussion w patient/family: The assessment and plan as outlined above was discussed with the patient and/or family members who expressed understanding and agreement. All questions were answered. Thank you for involving us in the care of your patient. Please call with any questions. History of Present Illness History of present illness: Ms. Guajardo is a 78 year old female All Systems Review: The remainder of the systems were reviewed and are negative Results 06/22/19 04:59 06/22/19 04:59 Lab Results 06/21/19 06/21/1919 17:30 17:30 17:30 WBC 10.1 Hgb 13.4 Hct 43.5 Plt Count 205 INR 1.6 APTT 45.5 H Sodium Potassium Chloride Carbon Dioxide BUN Creatinine Glucose Calcium Troponin I B-Natriuretic Peptide 1534 H 06/21/19 06/22/19 06/22/19 18:28 00:46 04:59 WBC 8.6 Hgb 12.2 Hct 38.9 Plt Count 198 INR APTT Sodium 138 Potassium 5.8 H Chloride 100 Carbon Dioxide 26 BUN 37 H Creatinine 2.52 H Glucose 91 Calcium 10.0 Troponin I 0.04 H* 0.04 H* B-Natriuretic Peptide 06/22/19 06/22/19 04:59 06:45 WBC Hgb Hct Plt Count INR APTT Sodium 139 Potassium 5.1 Chloride 101 Carbon Dioxide 24 BUN 41 H Creatinine 2.74 H Glucose 78 Calcium 9.7 Troponin I 0.05 H* B-Natriuretic Peptide
--- NOTE | 2019-06-22 15:12 | Event Note ---
Date of Encounter: 06/22/19 Time of Encounter: 15:10 Spoke with ROSA Belle, he is going to cancel Nephro consult. Patient is wanting to go home, if she does not go home today, please reconsult if needed. Patient is to f/u with Dr. Bird in 6 weeks. Patient is near baseline.
--- NOTE | 2019-06-22 15:28 | Event Note ---
Date of Encounter: 06/22/19 Time of Encounter: 15:24
--- NOTE | 2019-06-22 15:39 | Discharge Summary ---
- NOTES TO OUTPATIENT PROVIDER Notes to Outpatient Provider: f/u with renal within 6 weeks. f/u with cardiology within 3 weeks. f/u with PCP within 2 weeks. Date of Encounter: 06/22/19 Time of Encounter: 15:37 - Discharge Diagnosis (1) Chest pain Priority: Primary Status: Acute Qualifiers: Chest pain type: unspecified Qualified Code(s): R07.9 - Chest pain, unspecified (2) Shortness of breath Priority: Primary Status: Acute (3) Right leg swelling Priority: Primary Status: Acute (4) Acute on chronic kidney failure Priority: Primary Status: Acute Qualifiers: Chronic kidney disease stage: unspecified stage Qualified Code(s): N17.9 - Acute kidney failure, unspecified; N18.9 - Chronic kidney disease, unspecified (5) Hyperkalemia Priority: Primary Status: Resolved (6) Elevated troponin Priority: Secondary Status: Chronic (7) Congestive heart failure Priority: Secondary Status: Chronic Qualifiers: Heart failure type: diastolic Heart failure chronicity: chronic Qualified Code(s): I50.32 - Chronic diastolic (congestive) heart failure Hospital course: Ms. Guajardo is a 78 year old female with past medical history significant for CAD, CABG, heart valve replacement, pacemaker, CHF, DVT, PE, hyperlipidemia, hypertension, renal disease, and thyroid disease who presents for complaints of chest pain and shortness of breath with exertion above her chronic baseline along with right lower extremity edema. Patient reports she has been visiting her who is in the [facility] and think she has been overexerting herself as her chest pain and shortness of breath has been worse than her baseline over the past week. Reports with exertion she gets short of breath and has left-sided chest pain rated at 7/10. Reports symptoms improved with rest. Also has been seen recently at [facility] ER for left lower extremity swelling and had ultrasound completed which ER confirmed was negative for DVT. ER was also concerned for potential of PE, so started patient on a heparin drip and plan to order VQ scan. ER reported EKG as paced rhythm. ER also obtained chest x-ray which showed cardiomegaly without acute process. While resting patient currently denies any headache, numbness, tingling, chest pain, shortness breath, cough, abdominal pain, bowel or bladder changes. Reports following regularly with her PCP, cardiology, and nephrology. Had echocardiogram completed during her last admission in February 2019 which showed a 60% EF. Reports she was previously on diuretics however due to her kidney function they have been stopped. VQ scan showed a low possibility of pulmonary embolism. Cardiology was consulted, recommended continue medical management. Nephrology was consulted, recommended outpatient follow-up. Patient will be discharged home today. Discharge discussed with: patient Time spent discussing smoking cessation with patient: more than 10 minutes - Time Spent with Patient Total time spent providing and/or coordinating discharge services: Time spent: Greater than 30 minutes - Discharge Medications Prescriptions: Continued Nitroglycerin 0.4 mg SL PRN PRN #30 tab.subl PRN Reason: Chest Pain Atorvastatin Calcium [Lipitor] 20 mg PO HS Ranolazine [Ranexa] 1,000 mg PO BID Levothyroxine [Synthroid] 88 mcg PO 0630 Metoprolol [Lopressor] 50 mg PO BID Aspirin [Ecotrin] 325 mg PO DAILY Allopurinol [Zyloprim 300 MG] 300 mg PO DAILY PRN PRN Reason: GOUT Ropinirole HCl [Requip] 0.25 mg PO HS Lisinopril-HCTZ 10-12.5 [Prinzide 10-12.5] 1 each PO DAILY Omeprazole [PriLOSEC] 20 mg PO DAILY Home Medications: Aspirin [Ecotrin] 325 mg PO DAILY 03/11/18 [History] Metoprolol [Lopressor] 50 mg PO BID 03/11/18 [History] Nitroglycerin 0.4 mg SL PRN PRN #30 tab.subl 01/18/19 [Rx] Atorvastatin Calcium [Lipitor] 20 mg PO HS 03/14/19 [History] Ranolazine [Ranexa] 1,000 mg PO BID 03/14/19 [History] Allopurinol [Zyloprim 300 MG] 300 mg PO DAILY PRN 06/06/19 [History] Lisinopril-HCTZ 10-12.5 [Prinzide 10-12.5] 1 each PO DAILY 06/06/19 [History] Omeprazole [PriLOSEC] 20 mg PO DAILY 06/06/19 [History] Ropinirole HCl [Requip] 0.25 mg PO HS 06/06/19 [History] Levothyroxine [Synthroid] 88 mcg PO 0630 06/22/19 [History] Allergies/Adverse Reactions: Allergy/AdvReac Type Severity Reaction Status Date / Time No Known Allergies Allergy Verified 06/21/19 16:38 Date of admission: 06/21/19 20:07 Primary care physician: Candy Beverly MD Consults: 06/22/19 04:31 Consult to Cardiology [CONS] Routine Comment: Consulting Provider: Cardiology Zeinab Reason for Consult: Presents for chest pain and shortness of breath with exertion worse than baseline and left lower extremity swelling and pain. Troponins without elevation above baseline. Follows regulalry with [facility]. Please see for any new recommendations. Call Completed: No 06/22/19 04:33 Consult to Nephrology [CONS] Routine Consulting Provider: Kidney Zeinab/ROBERTO/JODY/KATIUSKA Reason for Consult: Chronic renal disease and follows regularly with [facility]. Kidney function elevated above baseline on admission. Call Completed: No 06/22/19 08:57 Consult to Nurse Navigator [CONS] Routine Comment: CHF Anticipated date of discharge: 06/22/19 - Constitutional Vitals: Temp Pulse Resp BP Pulse Ox 98 F 60 19 106/62 96 06/22/19 07:07 06/22/19 07:07 06/22/19 07:07 06/22/19 07:07 06/22/19 07:07 General appearance: Present: A&O X 3 Exam: General: Alert and oriented. Calm in no acute distress. Skin:Normal color, no rash, no lesions. Cardiovascular:Chronic murmur noted. No JVD. Pulse regular. Lungs:Normal breath sounds, no wheezes or crackles. Abdomen:Soft, non-tender, no rigidity. Extremities:No deformity, or clubbing. Bilateral pitting lower extremity edema noted. Right lower extremity much larger than left. Distal PMS intact. Neurological:Normal cognition and motor skills. Pulses:Carotid and radial pulses normal +2. Rest of the physical exam is non contributory. - Patient Status Disposition: Home, Self-Care Condition: Good Functional capacity at discharge: independent ambulation Overall status at discharge: patient is progressing back to baseline - Discharge Instructions Follow Up With: Candy Beverly MD [Primary Care Provider] - - Diet and Activity Activity: increase activity as tolerated Diet: low fat, low cholesterol, low salt diet
--- NOTE | 2019-06-24 14:15 | Electrocardiograph Report ---
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
== END 2019-06-22 17:31 | disposition home or self-care (01) ==
LOC: 3BNU 16:36 → EMEROOARM 16:36 → 3BNU 21:42
PROVIDERS: ADMIT Internal Medicine Nephrology; ATTEND Internal Medicine Nephrology

== ENCOUNTER 2019-07-13 13:08 | Inpatient (IN) ==
[2019-07-13] MEDS ORDERED: methylPREDNISolone 125 MG/2 ML VIAL IVP ONE (13:23)
[2019-07-13] MEDS ORDERED: Ipratropium/Albuterol Neb 3 ML IH ONE (13:23)
--- NOTE | 2019-07-13 13:39 | Emergency Department Note ---
Disposition Clinical Impression: Acute exacerbation of CHF (congestive heart failure) Qualifiers: Heart failure type: unspecified Qualified Code(s): I50.9 - Heart failure, unspecified Dyspnea Qualifiers: Dyspnea type: unspecified Qualified Code(s): R06.00 - Dyspnea, unspecified Disposition: Admitted As Inpatient Condition: Fair Time of Disposition: 15:14 SOB HPI - General Stated Complaint: DEMIAN Time Seen by Provider: 07/13/19 13:16 Source: patient Mode of arrival: private vehicle Limitations: no limitations Nursing Notes Reviewed: Yes Vital Signs Reviewed: Yes - History of Present Illness 79-year-old female with a past medical history of congestive heart failure, previous CABG, pacemaker, that was being seen at her flare stitcher's office today for a pacemaker check. While she was in the office she just notes that her breathing became much worse and so she was advised to come to the emergency room for a checkup. Patient notes that she started to feel more short of breath starting yesterday. She reports increasing sputum production. She denies fevers or chills. She denies chest pain. She also reports increasing bilateral lower extremity swelling. She denies abdominal pain, nausea, vomiting, diarrhea, constipation, dark or tarry stools. Patient denies any history of asthma or COPD. - Related Data Home Medications Medication Instructions Recorded Confirmed Aspirin [Ecotrin] 325 mg PO DAILY 03/11/18 07/13/19 Metoprolol [Lopressor] 50 mg PO BID 03/11/18 07/13/19 Atorvastatin Calcium [Lipitor] 20 mg PO HS 03/14/19 07/13/19 Ranolazine [Ranexa] 1,000 mg PO BID 03/14/19 07/13/19 Allopurinol [Zyloprim 300 MG] 100 mg PO DAILY PRN 06/06/19 07/14/19 Lisinopril-HCTZ 10-12.5 [Prinzide 1 tab PO DAILY 06/06/19 07/13/19 10-12.5] Omeprazole [PriLOSEC] 20 mg PO DAILY 06/06/19 07/13/19 Levothyroxine [Synthroid] 88 mcg PO 0630 06/22/19 07/13/19 Eszopiclone 1 mg PO HS 07/13/19 07/13/19 Furosemide [Lasix] 20 mg PO DAILY 07/13/19 07/13/19 Ropinirole HCl [Requip] 0.5 mg PO HS 07/13/19 07/13/19 Previous Rx's Medication Instructions Recorded Nitroglycerin 0.4 mg SL PRN PRN #30 tab.subl 01/18/19 Allergies Allergy/AdvReac Type Severity Reaction Status Date / Time No Known Allergies Allergy Verified 06/21/19 16:38 Review of Systems: In addition to that documented in the HPI above, the additional ROS was obtained: Constitutional: Denies fevers or chills Eyes: Denies vision changes ENMT: Denies sore throat CV: Denies chest pain Reports increased vamsi LE swelling Resp: Reports SOB GI: Denies vomiting or diarrhea MSK: Denies recent trauma Skin: Denies new rashes Neuro: Denies new numbness or tingling or weakness Past Medical History - Past Medical History Attestation: Yes The following information was validated with the patient. Medical history: Reports: CHF, coronary artery disease, hyperlipidemia, hypertension, myocardial infarction, pulmonary embolus, renal disease, thyroid disease, valvular heart disease, other Surgical history: Reports: carotid endarterectomy, coronary bypass (CABG), heart valve replacement, knee replacement Psychiatric history: Reports: no psych history ASSOCIATE PROGRAMMER history: Reports: no ASSOCIATE PROGRAMMER history - Social History Smoking Status: Never smoker Smokeless Tobacco Status: No Alcohol use: Reports: none Drug use: Reports: none Physical Exam General: No acute distress. Appears uncomfortable, but is resting comfortably on the bed, laying back on the cart. Well developed, well nourished. Head: atraumatic, normocephalic. ENT: No conjunctival injection, no scleral icterus. PERRLA. EOMI. Oropharynx non- erythematous. mucous membranes moist. Neuro: No focal deficits, no speech deficit, no facial droop, mentating well. BUE/BLE Str 5/5. Pulm: Diffuse end-expiratory wheezes without focal consolidation. Cardio: RRR no m/r/g. Chest not tender to palpation. Well healed midline scar present consistent with previous CABG. Abd: Soft, non-distended. Normoactive bowel sounds. Non-tender to palpation. No guarding. Non rigid. Extremities: Radial pulses 2+ vamsi, 2+ vamsi LE pitting edema with multiple areas of excoriation. Skin: Other than noted above, warm, dry, intact. No rashes. Psych: Appropriate mood and affect. Answers questions appropriately. Cooperative with exam. Course Vital Signs Temperature 98.7 F 07/13/19 13:50 Pulse Rate 85 07/13/19 13:50 Respiratory Rate 25 07/13/19 13:50 Blood Pressure 153/73 07/13/19 13:50 O2 Sat by Pulse Oximetry 99 07/13/19 13:50 Temperature 97.7 F 07/14/19 16:19 Pulse Rate 74 07/14/19 16:19 Respiratory Rate 18 07/14/19 16:19 Blood Pressure 119/73 07/14/19 16:19 O2 Sat by Pulse Oximetry 96 07/14/19 16:19 Oxygen Delivery Oxygen Delivery Bipap Shortness of Breath/Dyspnea - MDM Narrative Medical decision making narrative: 79-year-old female with a past medical history of congestive heart failure, CABG, pacemaker that complains of 2 days of increasing shortness of breath with increased sputum production and decreased exercise tolerance. Concern for CHF exacerbation, pneumonia. Pt was admitted 06/22 for SOB and CP, had an echo in February 2019 that showed EF 60%. Sees Dr. Rabago in cardiology, but saw CAREER BASED INTERVENTION COORDINATOR Naga today for pacemaker check. Will obtain EKG, CBC, BMP, BNP, CXR. Will administer duonebs, steroids, IV lasix. 1448: Pt continued to have shortness of breath while administration of duoneb, BNP was elevated at over 3,000 - double her value from 06/21/19, will start BiPAP and admit for CHF exacerbation. Troponin was elevated at 0.05, but she is not having any chest pain and she has a history of elevated troponin's. Today's troponin is actually one of her lowest values and I believe this is due to her CKD. 1455: Pt was refusing to wear the BiPAP mask but I emphasized the need for BiPAP to help open her lungs and improve her breathing. She was offered an anti- anxiety drug which she accepted. Will order 1mg IV Ativan. CHURCH MUSICIAN will apply BiPAP. 1513: Pt was admitted to Dr. Gracia, hospitalist, who agreed to accept the patient to his service. Pt was still refusing BiPAP but had not received Ativan yet. Called RN and asked for Ativan administration. Results of the workup including any imaging and/or labwork was shared with the patient at bedside. Patient was given an opportunity to ask questions at bedside and all of their concerns were addressed. Patient verbalized understanding and agreement with plan of care. Pt remained stable while in the department. - Medical Records Medical records reviewed: Yes I reviewed the patient's medical records. - Lab Data Lab results reviewed: Yes I reviewed the patient's lab results. Result diagrams: 07/14/19 01:49 07/14/19 00:00 Lab Results 07/13/19 07/13/19 07/13/19 Range/Units 13:49 13:49 13:49 WBC 8.4 (4.3-11.1) K/mcL RBC 4.51 (3.82-4.97) M/mcL Hgb 14.0 (11.5-15.4) g/dL Hct 44.7 (35.3-44.9) % MCV 99.1 (83.0-100.0) fL MCH 31.0 (28.0-33.3) pg MCHC 31.3 L (31.6-35.5) g/dL RDW 17.0 H (11.5-14.5) % Plt Count 198 (140-400) K/mcL MPV 10.5 (9.4-12.4) fL Immature Gran % 0.1 (0-4) % Seg Neutrophils % 75.0 % Lymphocytes % 13.0 % Monocytes % 9.0 % Eosinophils % 2.5 % Basophils % 0.4 % Neutrophils # 6.3 (1.6-8.9) K/mcL Lymphocytes # 1.1 (0.6-4.6) K/mcL Monocytes # 0.8 (0.0-1.3) K/mcL Eosinophils # 0.2 (0.0-0.6) K/mcL Basophils # 0.0 (0.0-0.2) K/mcL PT (9.4-12.1) Seconds INR APTT (26.0-36.0) Seconds D-Dimer (0-500) ng/mLFEU Heparin Anti-Xa, Unfract (0.30-0.70) IU/mL Sample Site ABG pH (7.32-7.45) pH Units ABG pCO2 (35-45) mmHg ABG pO2 (85-104) mmHg ABG HCO3 (21-27) mEq/L ABG Total CO2 (20-26) mEq/L ABG O2 Saturation (95-98) % ABG Base Excess (-2 to 3) mEq/L Inspired O2 (1-15=lpm ec96-396=%) Sodium 140 (136-145) mEq/L Potassium 4.3 (3.5-5.1) mEq/L Chloride 106 (98-107) mEq/L Carbon Dioxide 28 (23-29) mEq/L BUN 30 H (8-23) mg/dL Creatinine 1.77 H (0.60-1.20) mg/dL Est GFR ( Amer) 34 L (> 60) Est GFR (Non-Af Amer) 28 L (> 60) BUN/Creatinine Ratio 17 (6-26) Glucose 116 H (70-105) mg/dL Calculated Osmolality 297 (280-300) Lactic Acid 1.2 (0.5-2.2) mmol/L Calcium 9.9 (8.6-10.3) mg/dL Magnesium 2.1 (1.6-2.6) mg/dL Troponin I 0.05 H* (< 0.04) ng/mL B-Natriuretic Peptide (Less than 100) pg/mL Procalcitonin (0.00-0.15) ng/mL 07/13/19 07/13/19 07/13/19 Range/Units 13:49 13:49 17:49 WBC (4.3-11.1) K/mcL RBC (3.82-4.97) M/mcL Hgb (11.5-15.4) g/dL Hct (35.3-44.9) % MCV (83.0-100.0) fL MCH (28.0-33.3) pg MCHC (31.6-35.5) g/dL RDW (11.5-14.5) % Plt Count (140-400) K/mcL MPV (9.4-12.4) fL Immature Gran % (0-4) % Seg Neutrophils % % Lymphocytes % % Monocytes % % Eosinophils % % Basophils % % Neutrophils # (1.6-8.9) K/mcL Lymphocytes # (0.6-4.6) K/mcL Monocytes # (0.0-1.3) K/mcL Eosinophils # (0.0-0.6) K/mcL Basophils # (0.0-0.2) K/mcL PT (9.4-12.1) Seconds INR APTT (26.0-36.0) Seconds D-Dimer (0-500) ng/mLFEU Heparin Anti-Xa, Unfract (0.30-0.70) IU/mL Sample Site L Radial ABG pH 7.42 (7.32-7.45) pH Units ABG pCO2 33 L (35-45) mmHg ABG pO2 72 L (85-104) mmHg ABG HCO3 21 (21-27) mEq/L ABG Total CO2 23 (20-26) mEq/L ABG O2 Saturation 95 (95-98) % ABG Base Excess -2 (-2 to 3) mEq/L Inspired O2 21.0 (1-15=lpm qv02-120=%) Sodium (136-145) mEq/L Potassium (3.5-5.1) mEq/L Chloride (98-107) mEq/L Carbon Dioxide (23-29) mEq/L BUN (8-23) mg/dL Creatinine (0.60-1.20) mg/dL Est GFR ( Amer) (> 60) Est GFR (Non-Af Amer) (> 60) BUN/Creatinine Ratio (6-26) Glucose (70-105) mg/dL Calculated Osmolality (280-300) Lactic Acid (0.5-2.2) mmol/L Calcium (8.6-10.3) mg/dL Magnesium (1.6-2.6) mg/dL Troponin I (< 0.04) ng/mL B-Natriuretic Peptide 3023 H (Less than 100) pg/mL Procalcitonin 0.07 (0.00-0.15) ng/mL 07/13/19 07/13/19 07/13/19 Range/Units 19:41 19:41 19:41 WBC (4.3-11.1) K/mcL RBC (3.82-4.97) M/mcL Hgb (11.5-15.4) g/dL Hct (35.3-44.9) % MCV (83.0-100.0) fL MCH (28.0-33.3) pg MCHC (31.6-35.5) g/dL RDW (11.5-14.5) % Plt Count (140-400) K/mcL MPV (9.4-12.4) fL Immature Gran % (0-4) % Seg Neutrophils % % Lymphocytes % % Monocytes % % Eosinophils % % Basophils % % Neutrophils # (1.6-8.9) K/mcL Lymphocytes # (0.6-4.6) K/mcL Monocytes # (0.0-1.3) K/mcL Eosinophils # (0.0-0.6) K/mcL Basophils # (0.0-0.2) K/mcL PT 14.4 H (9.4-12.1) Seconds INR 1.3 APTT 45.0 H (26.0-36.0) Seconds D-Dimer 2030 H (0-500) ng/mLFEU Heparin Anti-Xa, Unfract (0.30-0.70) IU/mL Sample Site ABG pH (7.32-7.45) pH Units ABG pCO2 (35-45) mmHg ABG pO2 (85-104) mmHg ABG HCO3 (21-27) mEq/L ABG Total CO2 (20-26) mEq/L ABG O2 Saturation (95-98) % ABG Base Excess (-2 to 3) mEq/L Inspired O2 (1-15=lpm tb60-692=%) Sodium (136-145) mEq/L Potassium (3.5-5.1) mEq/L Chloride (98-107) mEq/L Carbon Dioxide (23-29) mEq/L BUN (8-23) mg/dL Creatinine (0.60-1.20) mg/dL Est GFR ( Amer) (> 60) Est GFR (Non-Af Amer) (> 60) BUN/Creatinine Ratio (6-26) Glucose (70-105) mg/dL Calculated Osmolality (280-300) Lactic Acid (0.5-2.2) mmol/L Calcium (8.6-10.3) mg/dL Magnesium (1.6-2.6) mg/dL Troponin I 0.07 H* (< 0.04) ng/mL B-Natriuretic Peptide (Less than 100) pg/mL Procalcitonin (0.00-0.15) ng/mL 07/14/19 07/14/19 07/14/19 Range/Units 00:00 01:49 06:38 WBC 4.6 (4.3-11.1) K/mcL RBC 3.67 L (3.82-4.97) M/mcL Hgb 11.5 D (11.5-15.4) g/dL Hct 37.1 (35.3-44.9) % MCV 101.1 H (83.0-100.0) fL MCH 31.3 (28.0-33.3) pg MCHC 31.0 L (31.6-35.5) g/dL RDW 16.8 H (11.5-14.5) % Plt Count 147 (140-400) K/mcL MPV 10.6 (9.4-12.4) fL Immature Gran % (0-4) % Seg Neutrophils % % Lymphocytes % % Monocytes % % Eosinophils % % Basophils % % Neutrophils # (1.6-8.9) K/mcL Lymphocytes # (0.6-4.6) K/mcL Monocytes # (0.0-1.3) K/mcL Eosinophils # (0.0-0.6) K/mcL Basophils # (0.0-0.2) K/mcL PT (9.4-12.1) Seconds INR APTT (26.0-36.0) Seconds D-Dimer (0-500) ng/mLFEU Heparin Anti-Xa, Unfract (0.30-0.70) IU/mL Sample Site ABG pH (7.32-7.45) pH Units ABG pCO2 (35-45) mmHg ABG pO2 (85-104) mmHg ABG HCO3 (21-27) mEq/L ABG Total CO2 (20-26) mEq/L ABG O2 Saturation (95-98) % ABG Base Excess (-2 to 3) mEq/L Inspired O2 (1-15=lpm st30-945=%) Sodium 139 (136-145) mEq/L Potassium 4.5 (3.5-5.1) mEq/L Chloride 106 (98-107) mEq/L Carbon Dioxide 22 L (23-29) mEq/L BUN 29 H (8-23) mg/dL Creatinine 1.66 H (0.60-1.20) mg/dL Est GFR ( Amer) 36 L (> 60) Est GFR (Non-Af Amer) 30 L (> 60) BUN/Creatinine Ratio 17 (6-26) Glucose 204 H (70-105) mg/dL Calculated Osmolality 300 (280-300) Lactic Acid (0.5-2.2) mmol/L Calcium 9.1 (8.6-10.3) mg/dL Magnesium (1.6-2.6) mg/dL Troponin I 0.80 H* 3.35 H* (< 0.04) ng/mL B-Natriuretic Peptide (Less than 100) pg/mL Procalcitonin (0.00-0.15) ng/mL 07/14/19 07/14/19 Range/Units 07:44 07:44 WBC (4.3-11.1) K/mcL RBC (3.82-4.97) M/mcL Hgb (11.5-15.4) g/dL Hct (35.3-44.9) % MCV (83.0-100.0) fL MCH (28.0-33.3) pg MCHC (31.6-35.5) g/dL RDW (11.5-14.5) % Plt Count (140-400) K/mcL MPV (9.4-12.4) fL Immature Gran % (0-4) % Seg Neutrophils % % Lymphocytes % % Monocytes % % Eosinophils % % Basophils % % Neutrophils # (1.6-8.9) K/mcL Lymphocytes # (0.6-4.6) K/mcL Monocytes # (0.0-1.3) K/mcL Eosinophils # (0.0-0.6) K/mcL Basophils # (0.0-0.2) K/mcL PT 14.1 H (9.4-12.1) Seconds INR 1.2 APTT (26.0-36.0) Seconds D-Dimer (0-500) ng/mLFEU Heparin Anti-Xa, Unfract 0.03 L 0.03 L (0.30-0.70) IU/mL Sample Site ABG pH (7.32-7.45) pH Units ABG pCO2 (35-45) mmHg ABG pO2 (85-104) mmHg ABG HCO3 (21-27) mEq/L ABG Total CO2 (20-26) mEq/L ABG O2 Saturation (95-98) % ABG Base Excess (-2 to 3) mEq/L Inspired O2 (1-15=lpm rb38-848=%) Sodium (136-145) mEq/L Potassium (3.5-5.1) mEq/L Chloride (98-107) mEq/L Carbon Dioxide (23-29) mEq/L BUN (8-23) mg/dL Creatinine (0.60-1.20) mg/dL Est GFR ( Amer) (> 60) Est GFR (Non-Af Amer) (> 60) BUN/Creatinine Ratio (6-26) Glucose (70-105) mg/dL Calculated Osmolality (280-300) Lactic Acid (0.5-2.2) mmol/L Calcium (8.6-10.3) mg/dL Magnesium (1.6-2.6) mg/dL Troponin I (< 0.04) ng/mL B-Natriuretic Peptide (Less than 100) pg/mL Procalcitonin (0.00-0.15) ng/mL - Radiology Data Radiology results reviewed: Yes I reviewed the patient's radiology results. Chest X-Ray 07/13/19 13:43 IMPRESSION: Stable examination with cardiomegaly. No overt pulmonary edema. D/ / Quinton Hooks MD / Quitnon Hooks MD Interpreting Provider: Quinton Hooks MD - EKG Data EKG attestation: Yes I reviewed and interpreted this EKG. EKG results narrative: Rate 90, rhythm atrial sensed ventricular paced, axis left. FL 139, QRS 159 a prolonged, QTC 518 and prolonged. No clinically significant St elevations or depressions by Sgarbossa's criteria. When compared with previous EKG dated 06/21/2019 the rate is different and QRS morphology in lead II is different, as well as leads V6, and V2. Pt complaints of no chest pain at this time. Attestation Statement - Attestation Attestation: I, Rupesh Davey, examined this patient and my medical decision-making was reviewed with the ROLL ICER/PA/Advanced Practice Nurse/Resident Physician. I agree with the documented findings, disposition and treatment plan as described except to the extent set forth below. 79 yo female presents with incxreased SOB over the past few days. Patient was seen at her flare stitcher's office arrival to arrival who sent her in for further evaluation. Patient has increased work of breathing during evaluation emergency department. Lungs have rales in the bilateral lower lung levy. Patient has elevated troponin however she has had elevated troponins similar to this level in the past. Patient will be admitted to the hospitalist for further care and evaluation. I reviewed the EKG with the resident and agree with the interpretation. BNP was significantly elevated in the emergency department. Patient was started on BiPAP in the emergency department for her respiratory discomfort. She did not need intubation at this time however she was refusing to wear the BiPAP. She was given anxiolytics to help with the stress of wearing a BiPAP mask. Patient will be admitted to hospitalist for further care and evaluation.
[2019-07-13] MEDS ORDERED: Furosemide 20 MG/2 ML VIAL IVP ONE (13:44)
[2019-07-13 14:05] LABS: Basophils % 0.4 %; Eosinophils # 0.2 K/mcL (0.0-0.6); Eosinophils % 2.5 %; Hematocrit 44.7 % (35.3-44.9); Immature Granulocytes % 0.1 % (0-4); Lymphocytes # 1.1 K/mcL (0.6-4.6); Mean Corpuscular HGB Conc 31.3 g/dL (31.6-35.5); Mean Corpuscular Volume 99.1 fL (83.0-100.0); Mean Platelet Volume 10.5 fL (9.4-12.4); Monocytes # 0.8 K/mcL (0.0-1.3); Neutrophils # 6.3 K/mcL (1.6-8.9); Platelet Count 198 K/mcL (140-400); Red Blood Count 4.51 M/mcL (3.82-4.97); White Blood Count 8.4 K/mcL (4.3-11.1)
[2019-07-13 14:27] LABS: Calcium 9.9 mg/dL (8.6-10.3); Potassium 4.3 mEq/L (3.5-5.1)
[2019-07-13 14:31] LABS: Troponin I 0.05 ng/mL (< 0.04)
[2019-07-13] MEDS ORDERED: *HR* LORazepam 2 MG/ML VIAL IVP ONE (14:54)
[2019-07-13] MEDS ORDERED: Naloxone 0.4 MG/ML INJ IVP PRN (16:29)
[2019-07-13] MEDS ORDERED: Mag Hydrox/Al Hydrox/Simeth 30 ML UDC PO PRN (16:29)
[2019-07-13] MEDS ORDERED: Ondansetron ODT 4 MG TAB.RAPDIS SL PRN (16:29)
[2019-07-13] MEDS ORDERED: Nitroglycerin 0.4 MG TAB.SUBL SL PRN (16:56)
--- NOTE | 2019-07-13 17:16 | Internal Med History&Physical ---
Date of Encounter: 07/13/19 Time of Encounter: 17:02 Internal Medicine - H&P: HPI Chief complaint: dyspnea Admitted From: Home Plans for Post Hospital Care: Home History of present illness: Ms. Guajardo is a 79 year old female with PMH of CHF, CABG, pacemaker, aortic stenosis with prosthetic valve, PE presenting with 1 day history of dyspnea. Patient notes that for the last day, she has had significant dyspnea on exer tion. She tried taking her home lasix but this did not help very much. In ED, patient was recommended BiPAP but refused. Her O2 sat on room air was 99% in ED. Patient notes associated chest pain. She says it hurts to take a deep breath. She describes it as sharp pain. It does not radiate. Patient denies dizziness. Patient does note that she has had increased swelling in both of her legs. She also notes a cough for the past 2 days. She has white sputum associated but no fevers or chills. No recent sick contacts. In ED, CXR showed no acute findings. BNP was 3000 which is above baseline. No leukocytosis. Troponin was 0.05 but this appears to be below her baseline. Cr was 1.77 but this also appears to be her baseline based on recent admission. On exam, patient does appear dyspneic. She has expiratory wheezing. She has no history of COPD/asthma but her is a smoker and smokes around her. She does have crackles on exam. Reveiw of records showed that patient does have prosthesis mismatch for her aortic stenosis causing severe prosthetic aortic valve stenosis. She was evaluated by CT surgery at [facility] and deemed poor candidate for repeat valve replacement. Patient decline percutaneous technique. She has declined left heart catheterization in the past. Her code status is DNR-CCA-DNI. Past Med Surg Social Fam HX - Past Medical History Medical history: CHF, coronary artery disease, hyperlipidemia, hypertension, myocardial infarction, pulmonary embolus, renal disease, thyroid disease, valvular heart disease, other Additional medical history: GOUT Psychiatric history: no psych history - Past Surgical History Surgical History: carotid endarterectomy, coronary bypass (CABG), heart valve replacement, knee replacement - Social History Smoking Status: 2nd Hand Smoke Exposure Smokeless Tobacco Status: No Alcohol use: none Drug use: none - Family History Mother Living Status: Hx Family Cancer: Yes (lung) Father Living Status: Hx Family Cancer: Yes Brother Hx Family Cardiac Disorders: Yes ([place]) Internal Medicine - H&P: Meds Aspirin [Ecotrin] 325 mg PO DAILY 03/11/18 [History] Metoprolol [Lopressor] 50 mg PO BID 03/11/18 [History] Nitroglycerin 0.4 mg SL PRN PRN #30 tab.subl 01/18/19 [Rx] Atorvastatin Calcium [Lipitor] 20 mg PO HS 03/14/19 [History] Ranolazine [Ranexa] 1,000 mg PO BID 03/14/19 [History] Allopurinol [Zyloprim 300 MG] 300 mg PO DAILY PRN 06/06/19 [History] Lisinopril-HCTZ 10-12.5 [Prinzide 10-12.5] 1 tab PO DAILY 06/06/19 [History] Omeprazole [PriLOSEC] 20 mg PO DAILY 06/06/19 [History] Levothyroxine [Synthroid] 88 mcg PO 0630 06/22/19 [History] Eszopiclone 1 mg PO HS 07/13/19 [History] Furosemide [Lasix] 20 mg PO DAILY 07/13/19 [History] Ropinirole HCl [Requip] 0.5 mg PO HS 07/13/19 [History] Allergy/AdvReac Type Severity Reaction Status Date / Time No Known Allergies Allergy Verified 06/21/19 16:38 All Systems PM: A 10-system review of systems was performed and is negative for pertinent findings except as documented above in the HPI. Review of systems: Constitutional: No weight loss, no fever, no chills ENT/Mouth: No hearing changes, no congestion, no dysphagia Eyes: No redness, no discharge, no vision changes Cardiovascular: chest pain with deep inspiration Respiratory: dyspnea on exertion, orthopnea GI: No nausea, no vomiting, no diarrhea, no constipation, no blood in stool] Genitourinary: No dysuria, no urinary frequency, no hematuria Musculoskeletal: No arthralgias, no joint swelling Skin: No suspicious lesions Neuro: No weakness, no numbness, no loss of consciousness Psych: No anxiety, no depression, no changes in sleep - Constitutional Vitals: Temp Pulse Resp BP Pulse Ox 98.7 F 106 25 153/73 99 07/13/19 13:50 07/13/19 15:14 07/13/19 15:36 07/13/19 15:36 07/13/19 15:36 General appearance: Present: mild distress, A&O X 3, answers questions ernesto ropriately Exam: GENERAL APPEARANCE: Frail appearing, alert and cooperative, mild respiratory distress HEENT: Normocephalic/atraumatic, PERRLA. NECK: Supple, nontender without lymphadenopathy. CARDIOVASCULAR: systolic murmur best appreciated at right sternal border; pain w ith palpation of left anterior chest wall RESPIRATORY: b/l expiratory wheezing; bilateral basilar crackles; conversationally dyspneic ABDOMEN: Soft, nondistended, nontender; bowel sounds present. MUSKULOSKELETAL: No limitations in range of motion. EXTREMITIES: No edema, clubbing. NEUROLOGICAL: No focal neurological deficits. SKIN: Skin normal color, texture and turgor with no lesions or eruptions. PSYCHIATRIC: Judgment and reasoning; no hallucinations; normal affect. Internal Med - H&P Results - Labs CBC & Chem 7: 07/13/19 13:49 07/13/19 13:49 Labs: Short CBC 07/13/19 Range/Units 13:49 WBC 8.4 (4.3-11.1) K/mcL Hgb 14.0 (11.5-15.4) g/dL Hct 44.7 (35.3-44.9) % Plt Count 198 (140-400) K/mcL Neutrophils # 6.3 (1.6-8.9) K/mcL BMP 07/13/19 13:49 Sodium 140 Potassium 4.3 Chloride 106 Carbon Dioxide 28 BUN 30 H Creatinine 1.77 H Glucose 116 H Calcium 9.9 Cardiac Enzymes 07/13/19 Range/Units 13:49 Troponin I 0.05 H* (< 0.04) ng/mL - Impressions ITS Impressions Chest X-Ray 07/13/19 13:43 IMPRESSION: Stable examination with cardiomegaly. No overt pulmonary edema. D/ / Quinton Hooks MD / Quinton Hooks MD Interpreting Provider: Quinton Hooks MD - Assessment and Plan (1) Shortness of breath Current Visit: Yes Status: Acute Assessment and plan: Patient presenting with dyspnea on exertion and orthopnea O2 sat on room air stable at 95%+ CXR with no acute findings Patient does have history of severe aortic stenosis with valve replacment but valve mismatch causing severe aortic prothesis stenosis; she has been evaluated at CT surgery [facility] but declines any intervention Tachycardic, not hypotensive; h/o PE and not currently on blood thinner; b/l lower extremity edema with right worse than left; right leg also painful is a smoker and has been smoking around her for 50+ years; no h/o COPD/Asthma; wheezing and crackles on exam Plan: Stat d-Dimer; if positive than order V/Q scan; unable to order CTA 2/2 CKD and GFR of 28 Continuous pulse oximetry NC O2 as needed to maintain O2 sat >92% PRN DuoNebs Hold lasix, metoprolol, nitrate, HCTZ 2/2 severe aortic stenosis Consult cardiology for evaluation of aortic stenosis as this may be causing; evaluation of medications (2) Severe aortic stenosis Current Visit: Yes Status: Chronic Assessment and plan: Patient with severe aortic stenosis; not candidate for surgery; Has been told by cardiology that there is nothing more they can do At home she is taking daily furosemide, metoprolol, HCTZ, PRN nitroglycerin which can make symptom worse? Plan: Consult cardiology for recommendations Consider palliative care if cardiology is not able to provide any further recommendations (3) Chronic kidney disease (CKD) Current Visit: Yes Status: Chronic Assessment and plan: Kidney funciton appears at baseline Qualifiers: Chronic kidney disease stage: stage 3 (moderate) Qualified Code(s): N18.3 - Chronic kidney disease, stage 3 (moderate) (4) Peripheral edema Current Visit: Yes Status: Acute Assessment and plan: Bilateral lower extremity edema; right appears worse than left and is more tender see above for PE workup Plan: see above (5) Congestive heart failure Current Visit: Yes Status: Chronic Assessment and plan: Most recent ECHO showing EF 60% with diastolic dysfunction, sever LVH, sever pulmonary HTN, severe bioprosthetic aortic stenosis Crackles on exam but clear CXR BNP 3000, higher than baseline Plan: Hold further lasix 2/2 aortic stenosis monitor I&O Cardiology consulted Qualifiers: Heart failure type: diastolic Heart failure chronicity: chronic Qualified Code(s): I50.32 - Chronic diastolic (congestive) heart failure (6) Elevated troponin Current Visit: Yes Status: Acute Assessment and plan: troponin 0.05 appears at baseline Chest pain present but reproducible and associated with deep breathing Plan Telemetry Trend troponin Cardiology consulted (7) Hypertension Current Visit: Yes Status: Chronic Assessment and plan: Hold antihypertensives for now until cardiology evaluates Qualifiers: Hypertension type: essential hypertension Qualified Code(s): I10 - Essential (primary) hypertension (8) Hypothyroidism Current Visit: Yes Status: Chronic Assessment and plan: continue home meds Qualifiers: Hypothyroidism type: unspecified Qualified Code(s): E03.9 - Hypothyroidism, unspecified (9) DVT prophylaxis Current Visit: Yes Status: Acute Assessment and plan: hold for now pending PE workup - Time Spent With Patient Total time spent is greater than 50% in coordination of care (as documented) at patient's floor/unit and/or counseling patient: 40 minutes
[2019-07-13 17:25] LABS: Magnesium 2.1 mg/dL (1.6-2.6)
[2019-07-13 17:52] LABS: ABG Base Excess -2 mEq/L (-2 to 3); ABG HCO3 21 mEq/L (21-27); ABG Oxygen Saturation 95 % (95-98); ABG PCO2 33 mmHg (35-45); ABG PH 7.42 pH Units (7.32-7.45); ABG PO2 72 mmHg (85-104); ABG TCO2 23 mEq/L (20-26)
[2019-07-13] MEDS: Ranolazine 500 MG TAB.ER.12H PO SCH (20:19)
[2019-07-13] MEDS: rOPINIRole 0.25 MG TABLET PO SCH (20:19)
[2019-07-13 20:20] LABS: INR 1.3; Prothrombin Time 14.4 Seconds (9.4-12.1)
[2019-07-13] MEDS ORDERED: Acetaminophen 325 MG TABLET PO ONE (20:21)
[2019-07-14 01:34] LABS: Troponin I 0.8 ng/mL (< 0.04)
[2019-07-14 01:54] LABS: Calcium 9.1 mg/dL (8.6-10.3); Potassium 4.5 mEq/L (3.5-5.1)
[2019-07-14 02:28] LABS: Hematocrit 37.1 % (35.3-44.9); Mean Corpuscular Hemoglobin 31.3 pg (28.0-33.3); Mean Corpuscular Volume 101.1 fL (83.0-100.0); Mean Platelet Volume 10.6 fL (9.4-12.4); Platelet Count 147 K/mcL (140-400); Red Blood Count 3.67 M/mcL (3.82-4.97); Red Cell Distribution Width 16.8 % (11.5-14.5); White Blood Count 4.6 K/mcL (4.3-11.1)
[2019-07-14 02:42] LABS: Hemoglobin 11.5 g/dL (11.5-15.4)
[2019-07-14] MEDS ORDERED: *HR* Heparin 5,000 UNIT/ML VIAL IVP PRN ×2 (07:26)
[2019-07-14] MEDS ORDERED: *HR* Heparin 5,000 UNIT/ML VIAL IVP ONE (07:26)
--- NOTE | 2019-07-14 07:28 | Internal Med Progress Note ---
Hospitalist Progress Note - Encounter Date of Encounter: 07/14/19 Time of Encounter: 07:28 - Subjective Interval History: Pt states she is still having symptoms, with mild chest pain worse with any exertion associated with shortness of breath. Does also endorse progressively worsening leg swelling over last few weeks. No cough, no fever. Seen in room to day jointly with cardio, and pt declines any further intervention and after discussion was amenable to palliative consultation. - Exam Vitals: Temp Pulse Resp BP Pulse Ox 97.6 F 68 16 98/63 98 07/14/19 07:16 07/14/19 07:16 07/14/19 07:16 07/14/19 07:16 07/14/19 07:16 Exam: GENERAL APPEARANCE: Frail appearing, alert and cooperative, no respiratory distress HEENT: Normocephalic/atraumatic, EOMI CARDIOVASCULAR: obvious systolic murmur, regular rate and rhythm RESPIRATORY: b/l expiratory wheezing; bilateral basilar crackles; conversationally dyspneic ABDOMEN: Soft, nontender EXTREMITIES: Does have pedal edema to knees NEUROLOGICAL: No focal neurological deficits. SKIN: Skin normal color, texture and turgor with no lesions or eruptions. PSYCHIATRIC: Judgment and reasoning; no hallucinations; normal affect. - Assessment and Plan (1) Severe aortic stenosis Current Visit: Yes Status: Chronic - Summary of Assessment and Plan Summary of Assessment and Plan: Neal Guajardo is a 79 F w hx CAD s/p CABG, s/p bpAVR now with recurrent severe , HFpEF, severe PH, CKD4, who p/w SOB, chest pain, elevated troponin, and pedal edema, consistent with symptomatic causing HFpEF exacerbation. Acute on chronic HFpEF, severe PH: likely 2/2 AoS, but d-dimer elevated and thus VQ scan obtained which was indeterminate. Trop elevated concern for NSTEMI. - Cardio consult for medical management to focus on afterload reduction NSTEMI: trop elevated as above - hep gtt - DAPT, BB, ACEi - pt refuses LHC Severe aortic stenosis: not candidate for surgery per [facility] and pt refuses TAVR ev aluation/intervention. At home she is taking daily furosemide, metoprolol, HCTZ, PRN nitroglycerin which can decrease preload and worsen AoS. 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 CKD4: noted, renally dose as needed CAD: meds as above for nstemi Obesity: BMI 36 PPx: hep gtt Tele: yes Activity: up w assist FEN: cardiac, no MIVF Lines: PIV Consults: cardio Code: DNRCC-A / DNI Dispo: patient requires inpatient eval and management at this time, anticipate 1-2 days, will be homegoing possibly w hospice Internal Medicine: Result - Labs CBC & Chem 7: 07/14/19 01:49 07/14/19 00:00 Labs: Short CBC 07/13/19 07/14/19 Range/Units 13:49 01:49 WBC 8.4 4.6 (4.3-11.1) K/mcL Hgb 14.0 11.5 D (11.5-15.4) g/dL Hct 44.7 37.1 (35.3-44.9) % Plt Count 198 147 (140-400) K/mcL Neutrophils # 6.3 (1.6-8.9) K/mcL BMP 07/13/19 07/14/19 13:49 00:00 Sodium 140 139 Potassium 4.3 4.5 Chloride 106 106 Carbon Dioxide 28 22 L BUN 30 H 29 H Creatinine 1.77 H 1.66 H Glucose 116 H 204 H Calcium 9.9 9.1 Cardiac Enzymes 07/13/19 07/13/1918 Range/Units 13:49 19:41 00:00 Troponin I 0.05 H* 0.07 H* 0.80 H* (< 0.04) ng/mL 07/14/19 Range/Units 06:38 Troponin I 3.35 H* (< 0.04) ng/mL - ABG Interpretation ABG results: ABG ABG pH 7.42 pH Units (7.32-7.45) 07/13/19 17:49 ABG pCO2 33 mmHg (35-45) L 07/13/19 17:49 ABG pO2 72 mmHg (85-104) L 07/13/19 17:49 ABG O2 Saturation 95 % (95-98) 07/13/19 17:49 PT/INR, D-dimer PT 14.4 Seconds (9.4-12.1) H 07/13/19 19:41 D-Dimer 2030 ng/mLFEU (0-500) H 07/13/19 19:41 - Impressions Impressions Chest X-Ray 07/13/19 13:43 IMPRESSION: Stable examination with cardiomegaly. No overt pulmonary edema. D/ / Quinton Hooks MD / Quinton Hooks MD Interpreting Provider: Quinton Hooks MD Consult Discharge Plan - Plan Referrals: Candy Beverly MD [Primary Care Provider] -
[2019-07-14 08:11] LABS: Heparin anti-factor XA UFH 0.03 IU/mL (0.30-0.70); INR 1.2; Prothrombin Time 14.1 Seconds (9.4-12.1)
[2019-07-14] MEDS: Ranolazine 500 MG TAB.ER.12H PO SCH ×2 (08:12→20:40)
[2019-07-14] MEDS: Heparin 25,000 UNIT/250 ML D5W 25,000 UNIT/250 ML IV.SOLN IVC SCH (08:13)
[2019-07-14] MEDS ORDERED: Aspirin Enteric Coated 325 MG Tablet PO SCH (09:00)
--- NOTE | 2019-07-14 10:11 | Cardiology Consult Note ---
Date of Encounter: 07/14/19 Time of Encounter: 09:30 Assessment and Plan (1) NSTEMI (non-ST elevated myocardial infarction) Current Visit: No Status: Acute Per cardiology: -Admitted with worsening shortness of breath and chest pain. -Troponins 0.05, 0.07, 0.8, 3.35. -Denies current chest pain. -No acute ischemic ECG changes noted. -[facility] 03/30/2018: Left main 80% distal stenosis. LAD proximal 90% stenosis. Circumflex proximal 70% stenosis. RCA proximal 80% stenosis and mid 50% stenosis. ALVARADO to LMCA (?LAD) patent. SVG to OM1 occluded. -On asa, heparin drip, statin, ranexa. Not on BB due to hypotension. -[facility] 03/13/19: LVEF 60%. LV diastolic dysfunction with elevated filling pressures. Atypical septal motion. Severe cLVH. RV is dilated with mild reduction in systolic function. Bi-atrial enlargement. Severe bioprosthetic . Mild, eccentric probably paravalvular regurgitation. Moderate mitral regurgitation. Severe tricuspid regurgitation. Mild pulmonic regurgitation. Severe pulmonary hypertension. A device lead was visualized in the right atrium and right ventricle. The IVC is dilated. -Discussed at length with patient regarding medical management vs. invasive evaluation, patient has elected for medical management. Recommend palliative care consult. -Continue heparin drip for 24-48 hours. -Will add plavix. Consider addition of BB when BP will allow. (2) Aortic stenosis Current Visit: No Status: Chronic Per cardiology: -Hx of AVR. Patient prosthesis mismatch, resultant severe prosthetic aortic valve stenosis. -Evaluated by cardiothoracic surgery and [facility] last year who deeemed poor/risk prohibitive candidate for repeat operation and valve replacement. -She was also offered referral to [place] to discuss possible percutaneous techniques (valve in valve) and she declines. Discussed again with patient. -Recommend palliative care consult. -Continue medical management. Pt is DNR-CCA-DNI. Qualifiers: Cardiac valve disease etiology: nonrheumatic Qualified Code(s): I35.0 - Nonrheumatic aortic (valve) stenosis Discussion w patient/family: The assessment and plan as outlined above was discussed with the patient who expressed understanding and agreement. All questions were answered. Thank you for involving us in the care of your patient. Please call with any questions. Discussed and reviewed with History of Present Illness Consult date: 07/13/19 Requesting physician: Jose M Chi Consult reason: Severe Chief complaint: shortness of breath History of present illness: Ms. Guajardo is a 79 year old female with a relevant PMH of CAD and aortic stenosis. CABG 2V and bioprosthetic aortic valve replacement (09/2012), PPM, HTN, hypothyroidism, CKD, carotid stenosis s/p CEA, who presented to [facility] with complaints of shortness of breath and chest pain. Pateint states symptoms started yesterday, when she was walking to her mail box. Patient reports baseline SOB and angina, however yesterday, symptoms were worse than her normal. Today, patient denies chest pain. Patient reports shortness of breath is improved since admission. Of note, patient is DNR-CCA/DNI and does not want any invasive procedures done. Past Med Surg Social Fam HX - Past Medical History Attestation: Yes The following information was validated with the patient. Source: patient, old records reviewed Medical history: CHF, coronary artery disease, hyperlipidemia, hypertension, myocardial infarction, pulmonary embolus, renal disease, thyroid disease, valvular heart disease, other Additional medical history: GOUT Psychiatric history: no psych history - Past Surgical History Surgical History: carotid endarterectomy, coronary bypass (CABG), heart valve replacement, knee replacement - Social History Smoking Status: 2nd Hand Smoke Exposure Smokeless Tobacco Status: No Alcohol use: none Drug use: none - Family History Mother Living Status: Hx Family Cancer: Yes (lung) Father Living Status: Hx Family Cancer: Yes Brother Hx Family Cardiac Disorders: Yes ([place]) Medications and Allergies Aspirin [Ecotrin] 325 mg PO DAILY 03/11/18 [History] Metoprolol [Lopressor] 50 mg PO BID 03/11/18 [History] Nitroglycerin 0.4 mg SL PRN PRN #30 tab.subl 01/18/19 [Rx] Atorvastatin Calcium [Lipitor] 20 mg PO HS 03/14/19 [History] Ranolazine [Ranexa] 1,000 mg PO BID 03/14/19 [History] Allopurinol [Zyloprim 300 MG] 100 mg PO DAILY PRN 06/06/19 [History] Lisinopril-HCTZ 10-12.5 [Prinzide 10-12.5] 1 tab PO DAILY 06/06/19 [History] Omeprazole [PriLOSEC] 20 mg PO DAILY 06/06/19 [History] Levothyroxine [Synthroid] 88 mcg PO 0630 06/22/19 [History] Eszopiclone 1 mg PO HS 07/13/19 [History] Furosemide [Lasix] 20 mg PO DAILY 07/13/19 [History] Ropinirole HCl [Requip] 0.5 mg PO HS 07/13/19 [History] Allergy/AdvReac Type Severity Reaction Status Date / Time No Known Allergies Allergy Verified 06/21/19 16:38 All Systems Review: The remainder of the systems were reviewed and are negative - Cardiovascular Cardiovascular: as per HPI, chest pain with exertion, dyspnea on exertion Physical Examination Vital Signs, Last 4 Hours Temp Pulse Resp BP Pulse Ox 07/14/19 07:16 97.6 F 68 16 98/63 98 General: Conversant, No Apparent Distress HEENT: Atraumatic, Normocephaly, Mucus Membranes Moist Neck: No JVD, Normal carotid pulses Cardiac: Reg Rate and Rhythm, Normal S1 and S2, Other (Systolic murmur noted) Lungs: Other (Inspiratory wheezes noted throughout) Neuro: Alert and responsive, No focal deficits noted Abdomen: Soft, Non-Tender Skin: No rashes noted on visualized skin Musculoskeletal: No Chest Wall Tenderness Extremities: No Clubbing, No Cyanosis, Normal Pulses, Other (Moderate lower extremity edema noted. ) Results 07/14/19 01:49 07/14/19 00:00 Lab Results 07/13/19 07/13/19 07/13/19 13:49 13:49 13:49 WBC 8.4 Hgb 14.0 Hct 44.7 Plt Count 198 INR APTT D-Dimer Sodium 140 Potassium 4.3 Chloride 106 Carbon Dioxide 28 BUN 30 H Creatinine 1.77 H Glucose 116 H Calcium 9.9 Magnesium 2.1 Troponin I 0.05 H* B-Natriuretic Peptide 3023 H Impressions Chest X-Ray 07/13/19 13:43 IMPRESSION: Stable examination with cardiomegaly. No overt pulmonary edema. D/ / Quinton Hooks MD / Quinton Hooks MD Interpreting Provider: Quinton Hooks MD Pulmonary Perfusion Imaging 07/14/19 07:45 IMPRESSION: Indeterminate probability for acute pulmonary emboli. Heterogeneous ventilation scintigraphy suggesting airways disease. D/ / 07/14/2019 08:07:33 Chris Farmer MD / [facility] Interpreting Provider: Chris Farmer MD Active Medications Al Hydrox/Mg Hydrox/Simethicone (Maalox) 15 ml PO Q6HR PRN PRN Reason: Dyspepsia Stop: 01/12/20 16:30 Allopurinol (Zyloprim) 100 mg PO DAILY GUS Stop: 01/14/20 09:01 Aspirin (Aspirin Ec) 81 mg PO DAILY GUS Stop: 01/14/20 09:01 Atorvastatin Calcium (Lipitor) 20 mg PO HS GUS Stop: 01/12/20 21:01 Last Admin: 07/13/19 20:19 Dose: 20 mg Documented by: Heparin Sodium (Porcine) (Heparin) 4,000 unit IVP Q6HR PRN PRN Reason: SEE COMMENTS Stop: 01/13/20 07:27 Heparin Sodium (Porcine) (Heparin) 2,000 unit IVP Q6H PRN PRN Reason: SEE COMMENTS Stop: 01/13/20 07:27 Heparin Sodium/Dextrose (Heparin 25,000 Unit/250 Ml D5w) 25,000 unit in 250 mls @ 9.931 mls/hr IVC .Q24H GUS; Protocol Stop: 01/13/20 07:31 Last Admin: 07/14/19 08:13 Dose: 11.5 unit/kg/hr, 9.9 mls/hr Documented by: Levothyroxine Sodium (Synthroid) 88 mcg PO 0630 GUS Stop: 01/13/20 06:31 Last Admin: 07/14/19 05:33 Dose: 88 mcg Documented by: Naloxone HCl (Narcan) 0.4 mg IVP Q2MPRN PRN PRN Reason: SEE COMMENTS Stop: 01/12/20 16:30 Omeprazole (Prilosec) 20 mg PO DAILY@0730 [facility]; Protocol Stop: 01/13/20 07:31 Last Admin: 07/14/19 08:12 Dose: 20 mg Documented by: Ondansetron HCl (Zofran Odt) 4 mg SL Q8HR PRN PRN Reason: Nausea And Vomiting Stop: 01/12/20 16:30 Ranolazine (Ranexa) 1,000 mg PO BID [facility] Stop: 01/12/20 21:01 Last Admin: 07/14/19 08:12 Dose: 1,000 mg Documented by: Ropinirole HCl (Requip) 0.5 mg PO [facility] Stop: 01/12/20 21:01 Last Admin: 07/13/19 20:19 Dose: 0.5 mg Documented by: Zolpidem Tartrate (Ambien) 5 mg PO [facility] Stop: 01/12/20 21:01 Last Admin: 07/13/19 20:47 Dose: 5 mg Documented by: Laboratory Tests 07/13/19 07/13/19 07/13/19 13:49 13:49 19:41 Creatinine Troponin I 0.05 H* 0.07 H* B-Natriuretic Peptide 3023 H 07/14/19 07/14/19 00:00 06:38 Creatinine 1.66 H Troponin I 0.80 H* 3.35 H* B-Natriuretic Peptide - Imaging and Cardiology Chest Xray: report reviewed Echo: report reviewed Cardiac cath: report reviewed - EKG Interpretation EKG results cardiology: personally reviewed (ECG with paced rhythm.), other (Telemetry reviewed with average HR previous 12 hours noted to be 82, paced rhythm.) Consult Discharge Plan - Plan Referrals: Candy Beverly MD [Primary Care Provider] -
--- NOTE | 2019-07-14 14:52 | Palliative - Consult Note ---
Date of Encounter: 07/14/19 Time of Encounter: 17:16 - Assessment and Plan (1) Goals of care, counseling/discussion Current Visit: No Status: Acute Assessment and plan: Pt declines any further re-do valve replacement surgery. She wishes to continue medical therapy. Palliative Care is consulted to further discuss goals of care and explore option of hospice with patient. Pt reports she would like to further discuss hospice options when her family is present. They will be here tomorrow afternoon per patient. Palliative Care will follow-up with patient/family tomorrow to further explore goals of care. (2) Shortness of breath Current Visit: Yes Status: Acute Assessment and plan: Pt would likely benefit from low dose opioid for shortness of breath. Will explore option of hospice care with pt tomorrow. Fan to face PRN. Continued medical management of CHF. (3) Congestive heart failure Current Visit: Yes Status: Chronic Assessment and plan: likely d/t severe . Possible NSTEMI. Cardiology following. Pt declining aggressive interventions for . Qualifiers: Heart failure type: diastolic Heart failure chronicity: chronic Qualified Code(s): I50.32 - Chronic diastolic (congestive) heart failure (4) Severe aortic stenosis Current Visit: Yes Status: Chronic Assessment and plan: Per cardiology: "Hx of AVR. Patient prosthesis mismatch, resultant severe prosthetic aortic valve stenosis. Evaluated by cardiothoracic surgery and [facility] last year who deemed poor/risk prohibitive candidate for repeat operation and valve replacement. She was also offered referral to [place] to discuss possible percutaneous techniques (valve in valve) and she declines." Plan to further discuss goals of care/explore hospice with patient when family present tomorrow. (5) Palliative care by specialist Current Visit: Yes Status: Acute Palliative-CN HPI - Data of Consult Consult date: 07/14/19 Requesting Physician: Jaya Gonzalez Primary Care Provider: Candy Beverly MD - Consult Narrative Palliative Care/Comfort Measures: Palliative care Reason for consult: Goals of Care History of present illness: Ms. Guajardo is a 79 year old female past hx of CHF, CABG, pacemaker, aortic stenosis with prosthetic valce and PE. She p/w worsening dyspnea x 1 day. Pt took her home lasix and did not notice any improvement. She has also noted increase in swelling in her BLE. She also notes she has been more fatigued than usual. Pt seen by cardiology today and found to have severe , elevated troponin/possible NSTEMI. Pt declines any further re-do valve replacement surgery. She wishes to continue medical therapy. Palliative Care consulted to further discuss goals of care and explore option of hospice with patient. Pt lying in bed, resting comfortably, NAD. No family at bedside. Pt reports she would like to further discuss hospice options when her family is present. They will be here tomorrow afternoon per patient. Palliative Care will follow- up with patient/family tomorrow. Pt denies any pain, shortness of breath or additional symptoms at the time of the visit. She does report extreme shortness of breath with activity. CC: Jaya Gonzalez - Time Spent with Patient Time: Total time spent is greater than 50% in coordination of care (as documented) at patient's floor/unit and/or counseling patient: 20 minutes Past Med Surg Social Fam HX - Past Medical History Medical history: CHF, coronary artery disease, hyperlipidemia, hypertension, myocardial infarction, pulmonary embolus, renal disease, thyroid disease, va lvular heart disease, other Additional medical history: GOUT Psychiatric history: no psych history - Past Surgical History Surgical History: carotid endarterectomy, coronary bypass (CABG), heart valve replacement, knee replacement - Social History Smoking Status: 2nd Hand Smoke Exposure Smokeless Tobacco Status: No Alcohol use: none Drug use: none - Family History Mother Living Status: Hx Family Cancer: Yes (lung) Father Living Status: Hx Family Cancer: Yes Brother Hx Family Cardiac Disorders: Yes ([place]) Medications and Allergies Aspirin [Ecotrin] 325 mg PO DAILY 03/11/18 [History] Metoprolol [Lopressor] 50 mg PO BID 03/11/18 [History] Nitroglycerin 0.4 mg SL PRN PRN #30 tab.subl 01/18/19 [Rx] Atorvastatin Calcium [Lipitor] 20 mg PO HS 03/14/19 [History] Ranolazine [Ranexa] 1,000 mg PO BID 03/14/19 [History] Allopurinol [Zyloprim 300 MG] 100 mg PO DAILY PRN 06/06/19 [History] Lisinopril-HCTZ 10-12.5 [Prinzide 10-12.5] 1 tab PO DAILY 06/06/19 [History] Omeprazole [PriLOSEC] 20 mg PO DAILY 06/06/19 [History] Levothyroxine [Synthroid] 88 mcg PO 0630 06/22/19 [History] Eszopiclone 1 mg PO HS 07/13/19 [History] Furosemide [Lasix] 20 mg PO DAILY 07/13/19 [History] Ropinirole HCl [Requip] 0.5 mg PO HS 07/13/19 [History] Allergy/AdvReac Type Severity Reaction Status Date / Time No Known Allergies Allergy Verified 06/21/19 16:38 - Constitutional Constitutional ROS PAL: as per HPI, fatigue, lethargy, no frequent falls - Cardiovascular Cardiovascular ROS: as per HPI, dyspnea on exertion, leg edema - Respiratory Respiratory: as per HPI, dyspnea, dyspnea on exertion, wheezing - Gastrointestinal Gastrointestinal: as per HPI, no abdominal pain, no constipation - Genitourinary Palliative ROS female: as per HPI, no difficulty voiding, no urinary hesitancy - Musculoskeletal Musculoskeletal ROS IM: as per HPI - Integumentary ROS Integumentary: as per HPI - Neurological Neurological ROS: as per HPI, no confusion, no frequent falls - Psychiatric Psychiatric general PM: as per HPI, no confusion Palliative Care-Exam - Constitutional Vitals: Temp Pulse Resp BP Pulse Ox 97.3 F L 72 18 108/57 95 07/14/19 11:31 07/14/19 11:31 07/14/19 11:31 07/14/19 11:31 07/14/19 11:31 Exam: CONSTITUTIONAL/GENERAL: Awake, interactive, NAD, lying in bed. Ear/Nose/Mouth/Throat (EMNT): Patent, atraumatic. CARDIOVASCULAR: Pulse regular; generalized edema. RESPIRATORY: Unlabored. Symmetric, normal effort. Room air. GASTROINTESTINAL: Soft, non-distended. GENITOURINARY: Voiding without difficulty. MUSCULOSKELETAL: No deformities; No joint swelling or erythema. INTEGUMENTARY: No rashes or lesions noted. NEUROLOGIC: No gross motor or sensory deficits appreciated. PSYCHIATRY: Alert, attentive. Behavior appropriate to situation. Internal Medicine - CN: Reslt - Labs CBC & Chem 7: 07/14/19 01:49 07/14/19 00:00 Labs: Short CBC 07/14/19 Range/Units 01:49 WBC 4.6 (4.3-11.1) K/mcL Hgb 11.5 D (11.5-15.4) g/dL Hct 37.1 (35.3-44.9) % Plt Count 147 (140-400) K/mcL BMP 07/13/19 07/14/19 13:49 00:00 Sodium 140 139 Potassium 4.3 4.5 Chloride 106 106 Carbon Dioxide 28 22 L BUN 30 H 29 H Creatinine 1.77 H 1.66 H Glucose 116 H 204 H Calcium 9.9 9.1 Cardiac Enzymes 07/13/19 07/13/19 07/14/19 Range/Units 13:49 19:41 00:00 Troponin I 0.05 H* 0.07 H* 0.80 H* (< 0.04) ng/mL 07/14/19 Range/Units 06:38 Troponin I 3.35 H* (< 0.04) ng/mL - ABG Interpretation ABG results: ABG ABG pH 7.42 pH Units (7.32-7.45) 07/13/19 17:49 ABG pCO2 33 mmHg (35-45) L 07/13/19 17:49 ABG pO2 72 mmHg (85-104) L 07/13/19 17:49 ABG O2 Saturation 95 % (95-98) 07/13/19 17:49 PT/INR, D-dimer PT 14.1 Seconds (9.4-12.1) H 07/14/19 07:44 D-Dimer 2030 ng/mLFEU (0-500) H 07/13/19 19:41 - Impressions Impressions Pulmonary Perfusion Imaging 07/14/19 07:45 IMPRESSION: Indeterminate probability for acute pulmonary emboli. Heterogeneous ventilation scintigraphy suggesting airways disease. D/ / 07/14/2019 08:07:33 Chris Farmer MD / [facility] Interpreting Provider: Chris Farmer MD Consult Discharge Plan - Plan Referrals: Candy Beverly MD [Primary Care Provider] - Palliative Quality Palliative Quality: Screen for Code Status: Yes, Screen for Goals of Care: Yes (Plan for further discussion when family is present tomorrow. ), Screen for Pain: Yes, If Pain Regimen Started, Initiate Bowel Regimen: NA, Screen for Nausea/Vomitting: Yes Code Status: 07/13/19 16:29 Resuscitation Status: Active [RES] Routine Comment: Resuscitation Status: Full Code 07/13/19 17:13 Resuscitation Status: Active [RES] Routine Comment: Resuscitation Status: [id number]
--- NOTE | 2019-07-14 15:57 | Electrocardiograph Report ---
[address] [address] Test Date: 2019-07-14 Pat Name: Neal Guajardo Department: 112 Room: 2A23 Gender: F Registration Officer: : 1940 Requested By: Melvi Barnes Order Number: [id number] Reading MD: Jayme Rabago Measurements Intervals [place] Rate: 83 P: 48 AL: 127 QRS: -58 QRSD: 185 T: 137 QT: 482 QTc: 522 Interpretive Statements ELECTRONIC VENTRICULAR PACEMAKER Electronically Signed On 07-14-2019 15:55:49 EDT by Jayme Rabago
--- NOTE | 2019-07-14 17:55 | Electrocardiograph Report ---
[place] [email or web address] [facility] Test Date: 2019-07-13 Pat Name: Neal Guajardo Department: EXAM18 Room: 23 Gender: F Massage Therapist: : 1940 Requested By: Rupesh Davey Order Number: [id number] Reading MD: Yariel Guerrero Measurements Intervals [place] Rate: 90 P: 77 WV: 139 QRS: -58 QRSD: 159 T: 132 QT: 423 QTc: 518 Interpretive Statements Atrial-sensed ventricular-paced rhythm Electronically Signed On 07-14-2019 17:53:59 EDT by Yariel Guerrero
[2019-07-14] MEDS: rOPINIRole 0.25 MG TABLET PO SCH (20:40)
[2019-07-15] MEDS: Ipratropium/Albuterol Neb 3 ML IH PRN ×2 (02:52→22:22)
--- NOTE | 2019-07-15 07:36 | Internal Med Progress Note ---
Hospitalist Progress Note - Encounter Date of Encounter: 07/15/19 Time of Encounter: 07:35 - Subjective Interval History: Pt does have more exertional dyspnea and more nausea today, requesting nausea meds. After using bedside commode (2p assist) and getting bathed, she reports being wiped out and wanting to rest. Later in day, pt's sister and son came to have family meeting. Pt sleeping and did not participate. Family amenable to hospice but final decision will need to come from patient since she still does have capacity. - Exam Vitals: Temp Pulse Resp BP Pulse Ox 97.5 F L 72 16 118/73 95 07/15/19 07:09 07/15/19 07:09 07/15/19 07:09 07/15/19 07:09 07/15/19 07:09 Exam: GENERAL APPEARANCE: Frail appearing, alert and cooperative earlier in day, on reassessment is more drowsy/sleepy, no respiratory distress at rest HEENT: Normocephalic/atraumatic, EOMI CARDIOVASCULAR: obvious systolic murmur, regular rate and rhythm RESPIRATORY: b/l expiratory wheezing; bilateral basilar crackles; conversationally dyspneic ABDOMEN: Soft, nontender EXTREMITIES: Does have pedal edema to knees NEUROLOGICAL: No focal neurological deficits. SKIN: Skin normal color, texture and turgor with no lesions or eruptions. PSYCHIATRIC: Judgment and reasoning; no hallucinations; normal affect. - Assessment and Plan (1) Severe aortic stenosis Current Visit: Yes Status: Chronic - Summary of Assessment and Plan Summary of Assessment and Plan: Neal Guajardo is a 79 F w hx CAD s/p CABG, s/p bpAVR now with recurrent severe , HFpEF, severe PH, CKD4, who p/w SOB, chest pain, elevated troponin, and pedal edema, consistent with symptomatic causing HFpEF exacerbation. Severe aortic stenosis: not candidate for surgery per [facility] and pt refuses TAVR evaluation/intervention. At home she is taking daily furosemide, metoprolol, HCTZ, PRN nitroglycerin which can decrease preload and worsen AoS. - holding lasix and hctz and nitro - cardiology consult for med management rec's - family discussion today w son and sister, both in agreement that hospice is a good next step. Unfortunately at time of meeting (2p), pt sleeping/somnolent Acute on chronic HFpEF, severe PH: likely 2/2 AoS and acutely worsened by NSTEMI - Cardio consult for medical management to focus on afterload reduction NSTEMI: trop elevated as above - completed hep gtt today - continue DAPT - start metoprolol 12.5 bid - pt refuses LHC CKD4: noted, renally dose as needed CAD: meds as above for nstemi Obesity: BMI 36 PPx: sqh Tele: yes Activity: up w assist FEN: cardiac, no MIVF Lines: PIV Consults: cardio Code: DNRCC-A / DNI, will likely transition to hospice in next 1-2 days Dispo: anticipate 1-2 days, will likely be homegoing w hospice Internal Medicine: Result - Labs CBC & Chem 7: 07/14/19 01:49 07/14/19 00:00 - ABG Interpretation ABG results: ABG ABG pH 7.42 pH Units (7.32-7.45) 07/13/19 17:49 ABG pCO2 33 mmHg (35-45) L 07/13/19 17:49 ABG pO2 72 mmHg (85-104) L 07/13/19 17:49 ABG O2 Saturation 95 % (95-98) 07/13/19 17:49 PT/INR, D-dimer PT 14.1 Seconds (9.4-12.1) H 07/14/19 07:44 D-Dimer 2030 ng/mLFEU (0-500) H 07/13/19 19:41 - Impressions Impressions Pulmonary Perfusion Imaging 07/14/19 07:45 IMPRESSION: Indeterminate probability for acute pulmonary emboli. Heterogeneous ventilation scintigraphy suggesting airways disease. D/ / 07/14/2019 08:07:33 [facility] / [facility] Interpreting Provider: Chris Farmer MD Consult Discharge Plan - Plan Referrals: Candy Beverly MD [Primary Care Provider] -
--- NOTE | 2019-07-15 08:23 | Palliative Progress Note ---
Date of Encounter: 07/15/19 Time of Encounter: 16:00 - Assessment and plan (1) Palliative care by specialist Current Visit: Yes Status: Acute Assessment and plan: Pt appears to have capacity to make decisions while awake. Pt drowsy on exam today and difficult to engage at times. With no advanced directives on file, Elias is LNOK. Per family, has hx of stroke and difficulty travelling to the hospital. Pt has voiced that she would like to name her son Elias as her HCPOA. Pt drowsy and minimally engaged in conversation for the majority of the day. Will attempt to have pt fill out HCPOA paperwork when she is more awake and able to participate in discussion. Pt's sister Malina and son Elias at bedside today. Goals of Care discussion as below. (2) Goals of care, counseling/discussion Current Visit: No Status: Acute Assessment and plan: [id number]: Family Meeting Participants: Patient: Pt drowsy, did not participate in discussion today. Legal Surrogate: Elias LNOK not present today--per family, hx of stroke and difficulty travelling to hospital. Other family/friends: Pt's sister Malina Palliative: Joanne Powell CNP Other medical staff: Dr. Gonzalez Discussion/Outcomes: - We reviewed current medical condition, treatment options. Pt's family voiced clear understanding of her current clinical condition. - We discussed goals -- disease focused vs comfort focused care. We discussed that patient has been clear to both the primary medical team and cardiology team that she does not want any further aggressive interventions or procedures done. We discussed that these wishes she continues to voice align with a comfort based focus of care. Pt's son expressed that she has been resistant to hospice care in the past. - We offered information pertaining to hospice / symptom management and explored misconceptions that pt's son and pt may have regarding hospice care. - Pt's son voiced understanding, he is hopeful she will be willing to further discuss hospice as option. At the time of the meeting, pt drowsy and did not engage in conversation. - We again discussed that with no advanced directives on file, Elias is LNOK. Pt has voiced that she would like to name her son Elias as her HCPOA but has remained too drowsy today to complete paperwork. Will attempt to have pt fill out HCPOA paperwork when she is more awake and able to participate in discussion. - Palliative Care has updated 2A manager social work that pt/family considering possible transition to hospice. Family has connection at [facility], will wait to place referral until further discussed with patient. I spent 30 minutes total time with patient, family member(s) and/or surrogate discussing advance care planning to include explanation/discussion of advanced directives. Please note this time was additional time spent with patient, family and/or surrogate not involving active management of patient's conditions or treatments. (3) Shortness of breath Current Visit: Yes Status: Acute Assessment and plan: Pt would likely benefit from low dose opioid for shortness of breath. Fan to face PRN. Continued medical management of CHF. (4) Congestive heart failure Current Visit: Yes Status: Chronic Assessment and plan: likely d/t severe . Possible NSTEMI. Cardiology consulted this admission. Pt declining aggressive interventions for valve replacement. Qualifiers: Heart failure type: diastolic Heart failure chronicity: chronic Qualified Code(s): I50.32 - Chronic diastolic (congestive) heart failure (5) Severe aortic stenosis Current Visit: Yes Status: Chronic Assessment and plan: Per cardiology: "Hx of AVR. Patient prosthesis mismatch, resultant severe prosth etic aortic valve stenosis. Evaluated by cardiothoracic surgery and [facility] last year who deemed poor/risk prohibitive candidate for repeat operation and valve replacement. She was also offered referral to [place] to discuss possible percutaneous techniques (valve in valve) and she declines." Ongoing discussions with patient/family regarding possible transition to hospice. - Time Spent With Patient Total time spent is greater than 50% in coordination of care (as documented) at patient's floor/unit and/or counseling patient: 40 minutes - Subjective Interval history: First Visit: Pt is sitting up in bed, appears uncomfortable during visit. Pt reports nausea at the time of the visit, RN at bedside administering Zofran. Pt reports continued shortness of breath, worsened with minimal exertion. We discussed meeting with her family today to further explore next best steps for her care, pt declines speaking further about this at the time of the visit. She reports she does not feel like talking at this time and asked that I visit later. I discussed with pt that we do not have any advanced directives on file. She reports her Elias has had stroke and is not in good condition, she also has 2 adult sons and a daughter. She voices her son Elias is listed as her medical power of insurance attorney. Discussed that I would reach out to Elias to obtain copy of her paperwork. Palliative Care placed a call to her son Elias, he was not planning on visiting today but said he would be willing if needed and if she wanted him to visit. Son Elias asked if this was regarding hospice, he voiced she was clear that she was not interested in hospice when it was discussed by primary team. I informed him that she later was open to discussing options further and that we would like to talk through options she has available to her so that she may decide what she feels is best for her. Son Elias states he doesn't remember completing the paperwork. Will plan to visit later today and attempt to engage pt in goals of care discussion. Second Visit: Pt lying in bed, remains drowsy, arousable, NAD at the time of the visit. Goals of care discussion with pt's son and sister as below. - We reviewed current medical condition, treatment options. Pt's family voiced clear understanding of her current clinical condition. - We discussed goals -- disease focused vs comfort focused care. We discussed that patient has been clear to both the primary medical team and cardiology team that she does not want any further aggressive interventions or procedures done. We discussed that these wishes she continues to voice align with a comfort based focus of care. Pt's son expressed that she has been resistant to hospice care in the past. - We offered information pertaining to hospice / symptom management and explored misconceptions that pt's son and pt may have regarding hospice care. - Pt's son voiced understanding, he is hopeful she will be willing to further discuss hospice as option. At the time of the meeting, pt drowsy and did not engage in conversation. - We again discussed that with no advanced directives on file, Elias is LNOK. Pt has voiced that she would like to name her son Elias as her HCPOA but has remained too drowsy today to complete paperwork. Will attempt to have pt fill out HCPOA paperwork when she is more awake and able to participate in discussion. - Palliative Care has updated 2A manager social work that pt/family considering possible transition to hospice. Family has connection at [facility], will wait to place referral until further discussed with patient. - Constitutional Vitals: Abnormal lab results RBC 3.67 M/mcL (3.82-4.97) L 07/14/19 01:49 MCV 101.1 fL (83.0-100.0) H 07/14/19 01:49 MCHC 31.0 g/dL (31.6-35.5) L 07/14/19 01:49 RDW 16.8 % (11.5-14.5) H 07/14/19 01:49 PT 14.1 Seconds (9.4-12.1) H 07/14/19 07:44 APTT 45.0 Seconds (26.0-36.0) H 07/13/19 19:41 D-Dimer 2030 ng/mLFEU (0-500) H 07/13/19 19:41 Heparin Anti-Xa, Unfract 0.73 IU/mL (0.30-0.70) H 07/14/19 21:08 ABG pCO2 33 mmHg (35-45) L 07/13/19 17:49 ABG pO2 72 mmHg (85-104) L 07/13/19 17:49 Carbon Dioxide 22 mEq/L (23-29) L 07/14/19 00:00 BUN 29 mg/dL (8-23) H 07/14/19 00:00 Creatinine 1.66 mg/dL (0.60-1.20) H 07/14/19 00:00 Est GFR ( Amer) 36 (> 60) L 07/14/19 00:00 Est GFR (Non-Af Amer) 30 (> 60) L 07/14/19 00:00 Glucose 204 mg/dL (70-105) H 07/14/19 00:00 Troponin I 3.35 ng/mL (< 0.04) H* 07/14/19 06:38 B-Natriuretic Peptide 3023 pg/mL (Less than 100) H 07/13/19 13:49 Exam: CONSTITUTIONAL/GENERAL: Chronically ill-appearing, drowsy, arousable, appears uncomfortable at times, lying in bed. Ear/Nose/Mouth/Throat (EMNT): Patent, atraumatic. CARDIOVASCULAR: Pulse regular; generalized edema. Murmur noted. RESPIRATORY: Labored with minimal exertion, wheezing noted. GASTROINTESTINAL: Soft, non-distended. GENITOURINARY: Voiding without difficulty. MUSCULOSKELETAL: No deformities; No joint swelling or erythema. INTEGUMENTARY: No rashes or lesions noted. NEUROLOGIC: Drowsy, arousable, difficult to fully engage in conversation, answers most questions appropriately. PSYCHIATRY: Unable to fully assess d/t drowsiness. Palliative Quality Palliative Quality: Screen for Code Status: Yes, Screen for Goals of Care: Yes, Screen for Pain: Yes, If Pain Regimen Started, Initiate Bowel Regimen: NA, Screen for Nausea/Vomitting: Yes Code Status: 07/13/19 16:29 Resuscitation Status: Active [RES] Routine Comment: Resuscitation Status: Full Code 07/13/19 17:13 Resuscitation Status: Active [RES] Routine Comment: Resuscitation Status: [id number] - Labs CBC & Chem 7: 07/16/19 03:32 07/16/19 03:32 Labs: Laboratory Results - last 24 hr 07/14/19 07/14/19 07/15/19 13:41 21:08 03:37 Heparin Anti-Xa, Unfract 0.77 H 0.73 H 0.33 - Impressions Impressions Pulmonary Perfusion Imaging 07/14/19 07:45 IMPRESSION: Indeterminate probability for acute pulmonary emboli. Heterogeneous ventilation scintigraphy suggesting airways disease. D/ / 07/14/2019 08:07:33 Chris Farmer MD / [facility] Interpreting Provider: Chris Farmer MD - ABG Interpretation ABG results: ABG ABG pH 7.42 pH Units (7.32-7.45) 07/13/19 17:49 ABG pCO2 33 mmHg (35-45) L 07/13/19 17:49 ABG pO2 72 mmHg (85-104) L 07/13/19 17:49 ABG O2 Saturation 95 % (95-98) 07/13/19 17:49 PT/INR, D-dimer PT 14.1 Seconds (9.4-12.1) H 07/14/19 07:44 D-Dimer 2030 ng/mLFEU (0-500) H 07/13/19 19:41 Palliative Scale - Palliative Performance Scale How ambulatory is this patient?: Mainly sit / lie What is patient's level of activity and evidence of disease?: Unable to do any work, Extensive disease How much self-care assistance does patient require?: Considerable assistance required How much oral intake does the patient have?: Normal or reduced What is this patient's level of consciousness?: Full or drowsy with or without confusion Palliative Performance Score: 40 % Consult Discharge Plan - Plan Referrals: Candy Beverly MD [Primary Care Provider] -
[2019-07-15] MEDS ORDERED: Ondansetron 4 MG/2 ML VIAL IVP PRN (09:32)
[2019-07-15] MEDS ORDERED: *HR* Promethazine 25 MG/ML VIAL IVP PRN (09:35)
[2019-07-15] MEDS: Ranolazine 500 MG TAB.ER.12H PO SCH ×2 (09:38→21:39)
[2019-07-15] MEDS: Aspirin Enteric Coated 81 MG Tablet PO SCH (09:39)
[2019-07-15] MEDS: Heparin 25,000 UNIT/250 ML D5W 25,000 UNIT/250 ML IV.SOLN IVC SCH (21:38)
[2019-07-15] MEDS: rOPINIRole 0.25 MG TABLET PO SCH (21:39)
[2019-07-16 04:28] LABS: Hemoglobin 12.9 g/dL (11.5-15.4); Mean Corpuscular HGB Conc 30.7 g/dL (31.6-35.5); Mean Corpuscular Hemoglobin 30.6 pg (28.0-33.3); Mean Corpuscular Volume 99.8 fL (83.0-100.0); Mean Platelet Volume 11.5 fL (9.4-12.4); Platelet Count 155 K/mcL (140-400); Red Blood Count 4.21 M/mcL (3.82-4.97); Red Cell Distribution Width 16.8 % (11.5-14.5); White Blood Count 6.7 K/mcL (4.3-11.1)
[2019-07-16 04:44] LABS: Calcium 9.5 mg/dL (8.6-10.3); Potassium 5.4 mEq/L (3.5-5.1)
--- NOTE | 2019-07-16 07:33 | Internal Med Progress Note ---
Hospitalist Progress Note - Encounter Date of Encounter: 07/16/19 Time of Encounter: 07:32 - Subjective Interval History: Patient seen this AM and says she's feeling ready to go home. However, seen later in day after minor exertion; she got very tired and can hardly hold her eyes open, symptomatic dyspnea. Despite this, she still insists that she will go home, and that her who cannot self-care will "drive and get her" and that she feels she will be able to walk into her home. Sister is present at bedside this time and gets visibly frustrated at patient for being stubborn and refusing any assistance because at this time she truly cannot even get out of bed, let alone go home despite her desire to. - Exam Vitals: Temp Pulse Resp BP Pulse Ox 96.3 F L 75 16 112/62 94 07/16/19 06:54 07/16/19 06:54 07/16/19 06:54 07/16/19 06:54 07/16/19 06:54 Exam: GENERAL APPEARANCE: Frail appearing, alert and cooperative earlier in day, on reassessment is again more drowsy/sleepy, does have mild respiratory distress HEENT: Normocephalic/atraumatic, EOMI CARDIOVASCULAR: obvious systolic murmur, regular rate and rhythm RESPIRATORY: b/l expiratory wheezing; bilateral basilar crackles; conversationally dyspneic ABDOMEN: Soft, nontender EXTREMITIES: Does have pedal edema to knees NEUROLOGICAL: No focal neurological deficits. SKIN: Skin normal color, texture and turgor with no lesions or eruptions. PSYCHIATRIC: Judgment and reasoning; no hallucinations; normal affect. - Assessment and Plan (1) Severe aortic stenosis Current Visit: Yes Status: Chronic - Summary of Assessment and Plan Summary of Assessment and Plan: Neal Guajardo is a 79 F w hx CAD s/p CABG, s/p bpAVR now with recurrent severe , HFpEF, severe PH, CKD4, who p/w SOB, chest pain, elevated troponin, and pedal edema, consistent with symptomatic causing HFpEF exacerbation and NSTEMI. Severe aortic stenosis: not candidate for surgery per [facility] and pt refuses TAVR evaluation/intervention. At home she is taking daily furosemide, metoprolol, HCTZ, PRN nitroglycerin which can decrease preload and worsen AoS. - holding lasix and hctz and nitro - cardiology consult for med management rec's - family discussion today w patient and sister, patient refuses any additional help and states ready for but unwilling to discuss even arranging assistance to get her home/help her in home/provide 24h supervision/etc, refuses SNF/hospice Acute on chronic HFpEF, severe PH: likely 2/2 AoS and acutely worsened by NSTEMI - Cardio consult for medical management to focus on afterload reduction NSTEMI: trop elevated as above. Pt refuses LHC. - continue DAPT, statin, metoprolol 12.5 bid CKD4: noted, renally dose as needed CAD: meds as above for nstemi Obesity: BMI 36 PPx: sqh Tele: yes Activity: up w assist FEN: cardiac, no MIVF Lines: PIV Consults: cardio Code: DNRCC-A / DNI Dispo: complicated discharge due to patient refuses any assistance or placement but unable even to physically sit up in bed by herself Internal Medicine: Result - Labs CBC & Chem 7: 07/16/19 03:32 07/16/19 03:32 Labs: Short CBC 07/16/19 Range/Units 03:32 WBC 6.7 (4.3-11.1) K/mcL Hgb 12.9 (11.5-15.4) g/dL Hct 42.0 (35.3-44.9) % Plt Count 155 (140-400) K/mcL BMP 07/16/19 03:32 Sodium 139 Potassium 5.4 H Chloride 103 Carbon Dioxide 24 BUN 43 H Creatinine 2.55 H Glucose 89 Calcium 9.5 - ABG Interpretation ABG results: ABG ABG pH 7.42 pH Units (7.32-7.45) 07/13/19 17:49 ABG pCO2 33 mmHg (35-45) L 07/13/19 17:49 ABG pO2 72 mmHg (85-104) L 07/13/19 17:49 ABG O2 Saturation 95 % (95-98) 07/13/19 17:49 PT/INR, D-dimer PT 14.1 Seconds (9.4-12.1) H 07/14/19 07:44 D-Dimer 2030 ng/mLFEU (0-500) H 07/13/19 19:41 Consult Discharge Plan - Plan Referrals: Candy Beverly MD [Primary Care Provider] -
--- NOTE | 2019-07-16 08:48 | Palliative Progress Note ---
Date of Encounter: 07/16/19 Time of Encounter: 13:13 - Assessment and plan (1) Palliative care by specialist Current Visit: Yes Status: Acute Assessment and plan: Pt currently has capacity to make decisions. Pt has voiced that she would like to name her son Elias as her HCPOA. Palliative Care assisted pt in filling out advanced directive paperwork. Pt named son Elias Guajardo as #1 HCPOA, son Norm as #2 HCPOA and daughter Ariane as #3 HCPOA. Paperwork completed and placed in chart to be scanned into medical record. (2) Goals of care, counseling/discussion Current Visit: No Status: Acute Assessment and plan: - We discussed her clinical condition, prognosis, and treatment options in the context of her values, preferences and goals. - She continues to voice that she does not want any further aggressive interventions or procedures done. We discussed that the wishes she continues to voice align with a comfort based plan of care. Palliative Care offered information obtaining to hospice care. Pt expressed that she is not interested in hospice services. - With her permission, we explored misconceptions that she may have regarding hospice care. She voiced understanding but continues to express that she is not interested in enrolling in hospice. She voices she is okay with continuing to return to the hospital if her condition worsens. Discussed with pt that we are here to discuss her goals of care further if she desires. - Pt has voiced this admission that she would like to name her son Elias as her healthcare power of environmental attorney. Palliative Care completed advanced directive paperwork today with patient. Copies placed in file to be scanned into medical record. - Primary team and SW exploring SNF placement as pt is unable to safely discharge home given her poor functional status and lack of caregiver support at home. - Although complex disposition, symptoms are stable currently and goals are clear. We will sign off for now. Please reconsult if further palliative issues arise. (3) Shortness of breath Current Visit: Yes Status: Acute Assessment and plan: Pt would likely benefit from low dose opioid for shortness of breath. Fan to face PRN. Continued medical management of CHF. (4) Congestive heart failure Current Visit: Yes Status: Chronic Assessment and plan: likely d/t severe . Possible NSTEMI. Cardiology consulted this admission. Pt declining aggressive interventions for valve replacement. Qualifiers: Heart failure type: diastolic Heart failure chronicity: chronic Qualified Code(s): I50.32 - Chronic diastolic (congestive) heart failure (5) Severe aortic stenosis Current Visit: Yes Status: Chronic Assessment and plan: Per cardiology: "Hx of AVR. Patient prosthesis mismatch, resultant severe prosthetic aortic valve stenosis. Evaluated by cardiothoracic surgery and [facility] last year who deemed poor/risk prohibitive candidate for repeat operation and valve replacement. She was also offered referral to [facility] to discuss possible percutaneous techniques (valve in valve) and she declines." Ongoing discussions with patient/family regarding possible transition to hospice. - Time Spent With Patient Total time spent is greater than 50% in coordination of care (as documented) at patient's floor/unit and/or counseling patient: 35 minutes I spent 20 minutes total time with patient, family member(s) and/or surrogate discussing advance care planning to include explanation/discussion of advanced directives. Please note this time was additional time spent with patient, family and/or surrogate not involving active management of patient's conditions or treatments. - Subjective Interval history: Pt sitting up in bed, NAD, appears comfortable. Continues to report shortness of breath with minimal exertion. She denies constipation, pain or any addition al symptoms. Goals of Care discussion as below. - We discussed her clinical condition, prognosis, and treatment options in the context of her values, preferences and goals. - She continues to voice that she does not want any further aggressive interventions or procedures done. We discussed that the wishes she continues to voice align with a comfort based plan of care. Palliative Care offered information obtaining to hospice care. Pt expressed that she is not interested in hospice services. - With her permission, we explored misconceptions that she may have regarding hospice care. She voiced understanding but continues to express that she is not interested in enrolling in hospice. She voices she is okay with continuing to return to the hospital if her condition worsens. Discussed with pt that we are here to discuss her goals of care further if she desires. - Pt has voiced this admission that she would like to name her son Elias as her healthcare power of environmental attorney. Palliative Care completed advanced directive paperwork today with patient. Copies placed in file to be scanned into medical record. - Constitutional Vitals: Abnormal lab results RBC 3.67 M/mcL (3.82-4.97) L 07/14/19 01:49 MCV 101.1 fL (83.0-100.0) H 07/14/19 01:49 MCHC 30.7 g/dL (31.6-35.5) L 07/16/19 03:32 RDW 16.8 % (11.5-14.5) H 07/16/19 03:32 PT 14.1 Seconds (9.4-12.1) H 07/14/19 07:44 APTT 45.0 Seconds (26.0-36.0) H 07/13/19 19:41 D-Dimer 2030 ng/mLFEU (0-500) H 07/13/19 19:41 Heparin Anti-Xa, Unfract 0.73 IU/mL (0.30-0.70) H 07/14/19 21:08 ABG pCO2 33 mmHg (35-45) L 07/13/19 17:49 ABG pO2 72 mmHg (85-104) L 07/13/19 17:49 Potassium 5.4 mEq/L (3.5-5.1) H 07/16/19 03:32 Carbon Dioxide 22 mEq/L (23-29) L 07/14/19 00:00 BUN 43 mg/dL (8-23) H 07/16/19 03:32 Creatinine 2.55 mg/dL (0.60-1.20) H 07/16/19 03:32 Est GFR ( Amer) 22 (> 60) L 07/16/19 03:32 Est GFR (Non-Af Amer) 18 (> 60) L 07/16/19 03:32 Glucose 204 mg/dL (70-105) H 07/14/19 00:00 Troponin I 3.35 ng/mL (< 0.04) H* 07/14/19 06:38 B-Natriuretic Peptide 3023 pg/mL (Less than 100) H 07/13/19 13:49 Exam: CONSTITUTIONAL/GENERAL: Chronically ill-appearing, awake and interactive, lying in bed, debilitated, CAM negative. Ear/Nose/Mouth/Throat (EMNT): Patent, atraumatic. CARDIOVASCULAR: Pulse regular; generalized edema. Murmur noted. RESPIRATORY: Labored with minimal exertion, wheezing noted. GASTROINTESTINAL: Soft, non-distended. GENITOURINARY: Voiding without difficulty in bedside commode. MUSCULOSKELETAL: No deformities; No joint swelling or erythema. Generalized weakness. INTEGUMENTARY: No rashes or lesions noted. NEUROLOGIC: Awake, interactive, oriented, CAM negative. PSYCHIATRY: Flat affect. Appears frustrated at times when discussing disposition plans. Palliative Quality Palliative Quality: Screen for Code Status: Yes, Screen for Goals of Care: Yes, Screen for Pain: Yes, If Pain Regimen Started, Initiate Bowel Regimen: NA, Screen for Nausea/Vomitting: Yes Code Status: 07/13/19 16:29 Resuscitation Status: Active [RES] Routine Comment: Resuscitation Status: Full Code 07/13/19 17:13 Resuscitation Status: Active [RES] Routine Comment: Resuscitation Status: [id number] - Labs CBC & Chem 7: 07/16/19 03:32 07/16/19 03:32 Labs: Laboratory Results - last 24 hr 07/15/19 07/16/19 07/16/19 09:56 03:32 03:32 WBC 6.7 RBC 4.21 Hgb 12.9 Hct 42.0 MCV 99.8 MCH 30.6 MCHC 30.7 L RDW 16.8 H Plt Count 155 MPV 11.5 Heparin Anti-Xa, Unfract 0.45 Sodium 139 Potassium 5.4 H Chloride 103 Carbon Dioxide 24 BUN 43 H Creatinine 2.55 H Est GFR ( Amer) 22 L Est GFR (Non-Af Amer) 18 L BUN/Creatinine Ratio 17 Glucose 89 Calculated Osmolality 298 Calcium 9.5 Magnesium 2.0 - ABG Interpretation ABG results: ABG ABG pH 7.42 pH Units (7.32-7.45) 07/13/19 17:49 ABG pCO2 33 mmHg (35-45) L 07/13/19 17:49 ABG pO2 72 mmHg (85-104) L 07/13/19 17:49 ABG O2 Saturation 95 % (95-98) 07/13/19 17:49 PT/INR, D-dimer PT 14.1 Seconds (9.4-12.1) H 07/14/19 07:44 D-Dimer 2030 ng/mLFEU (0-500) H 07/13/19 19:41 Palliative Scale - Palliative Performance Scale How ambulatory is this patient?: Mainly sit / lie What is patient's level of activity and evidence of disease?: Unable to do any work, Extensive disease How much self-care assistance does patient require?: Considerable assistance required How much oral intake does the patient have?: Normal or reduced What is this patient's level of consciousness?: Full or drowsy with or without confusion Palliative Performance Score: 40 % Consult Discharge Plan - Plan Referrals: Candy Beverly MD [Primary Care Provider] -
[2019-07-16] MEDS: Ranolazine 500 MG TAB.ER.12H PO SCH ×2 (09:30→22:59)
[2019-07-16] MEDS: Aspirin Enteric Coated 81 MG Tablet PO SCH (09:30)
[2019-07-16] MEDS: rOPINIRole 0.25 MG TABLET PO SCH (22:59)
[2019-07-16] MEDS: Ipratropium/Albuterol Neb 3 ML IH PRN (23:17)
--- NOTE | 2019-07-17 07:50 | Internal Med Progress Note ---
Hospitalist Progress Note - Encounter Date of Encounter: 07/17/19 Time of Encounter: 07:50 - Subjective Interval History: Patient overnight with some delirium reported by her and two sons, all of whom are present this morning. This morning is oriented but unable to perform complex tasks like taking medications. She says she's been having quite a bit of nausea but not asking for medications. She admits today that she needs more care and is willing for placement. SOB with any exertion including rolling over or sitting up. - Exam Vitals: Temp Pulse Resp BP Pulse Ox 97.7 F 51 18 119/69 96 07/17/19 07:36 07/17/19 07:36 07/17/19 07:36 07/17/19 07:36 07/17/19 07:36 Exam: GENERAL APPEARANCE: Frail appearing, awake, continues with mild respiratory dis tress with any exertion HEENT: Normocephalic/atraumatic, EOMI CARDIOVASCULAR: obvious systolic murmur, regular rate and rhythm RESPIRATORY: b/l expiratory wheezing; bilateral crackles diffusely now; c onversationally dyspneic ABDOMEN: Soft, nontender EXTREMITIES: Does have pedal edema to knees NEUROLOGICAL: No focal neurological deficits. SKIN: Skin normal color, texture and turgor with no lesions or eruptions. - Assessment and Plan (1) Severe aortic stenosis Current Visit: Yes Status: Chronic - Summary of Assessment and Plan Summary of Assessment and Plan: Neal Guajardo is a 79 F w hx CAD s/p CABG, s/p bpAVR now with recurrent severe , HFpEF, severe PH, CKD4, who p/w SOB, chest pain, elevated troponin, and pedal edema, consistent with symptomatic causing HFpEF exacerbation and NSTEMI. Severe aortic stenosis: not candidate for surgery per [facility] and pt refuses TAVR evaluation/intervention. At home she is taking daily furosemide, metoprolol, HCTZ, PRN nitroglycerin which can decrease preload and worsen AoS. - holding lasix and hctz and nitro - cardiology consult recommending hospice as no further medical or surgical interventions indicated - appreciate multiple conversations palliative team has had with patient and family - family discussion today w patient, , and two sons (one of whom is POA), and they all admit she will need more care than can be given at home Acute on chronic HFpEF, severe PH: likely 2/2 AoS and acutely worsened by NSTEMI NSTEMI: trop elevated as above. Pt refuses LHC. Continue DAPT, statin. Stop metoprolol. JU on CKD4: progressive, likely 2/2 CHF and limiting renal perfusion, pt refuses consideration of HD CAD: meds as above for nstemi Obesity: BMI 34 PPx: sqh Tele: yes Activity: up w assist FEN: cardiac, no MIVF Lines: PIV Consults: cardio, palliative Code: DNRCC-A / DNI Dispo: complicated discharge, now amenable to SNF/ECF with hospice Internal Medicine: Result - Labs CBC & Chem 7: 07/16/19 03:32 07/17/19 08:05 - ABG Interpretation ABG results: ABG ABG pH 7.42 pH Units (7.32-7.45) 07/13/19 17:49 ABG pCO2 33 mmHg (35-45) L 07/13/19 17:49 ABG pO2 72 mmHg (85-104) L 07/13/19 17:49 ABG O2 Saturation 95 % (95-98) 07/13/19 17:49 PT/INR, D-dimer PT 14.1 Seconds (9.4-12.1) H 07/14/19 07:44 D-Dimer 2030 ng/mLFEU (0-500) H 07/13/19 19:41 Consult Discharge Plan - Plan Referrals: Candy Beverly MD [Primary Care Provider] -
[2019-07-17 09:13] LABS: Calcium 9.6 mg/dL (8.6-10.3); Potassium 5.2 mEq/L (3.5-5.1)
[2019-07-17] MEDS: Ranolazine 500 MG TAB.ER.12H PO SCH ×2 (09:50→19:57)
[2019-07-17] MEDS: Aspirin Enteric Coated 81 MG Tablet PO SCH (09:50)
[2019-07-17] MEDS ORDERED: *HR* FentaNYL (PF) 100 MCG/2 ML VIAL IVP PRN (12:35)
[2019-07-17] MEDS: Ipratropium/Albuterol Neb 3 ML IH PRN (14:13)
[2019-07-17] MEDS: *HR* OxyCODONE/APAP 5/325 TABLET PO PRN ×2 (14:32→19:57)
[2019-07-17] MEDS: rOPINIRole 0.25 MG TABLET PO SCH (19:57)
[2019-07-17] MEDS: Ipratropium/Albuterol Neb 3 ML IH SCH (23:10)
[2019-07-18] MEDS: Ipratropium/Albuterol Neb 3 ML IH SCH ×4 (04:22→21:58)
[2019-07-18 07:58] LABS: Calcium 9.6 mg/dL (8.6-10.3); Potassium 5.3 mEq/L (3.5-5.1)
--- NOTE | 2019-07-18 08:15 | Internal Med Progress Note ---
Hospitalist Progress Note - Encounter Date of Encounter: 07/18/19 Time of Encounter: 08:15 - Subjective Interval History: Having quite a bit of difficulty last night with tactile tasks but this AM seems to be doing a bit better, still shaky but slightly more coordinated. Today will open her eyes briefly and look at me and directly answer questions; but then asks for a cup of ice which she already has sitting directly in front of her. Still profoundly dyspneic w exertion. - Exam Vitals: Temp Pulse Resp BP Pulse Ox 98.2 F 60 16 145/74 96 07/18/19 07:37 07/18/19 07:37 07/18/19 07:37 07/18/19 07:37 07/18/19 07:37 Exam: GENERAL APPEARANCE: Frail appearing, awake, continues with mild respiratory distress with any exertion HEENT: Normocephalic/atraumatic, EOMI CARDIOVASCULAR: obvious systolic murmur, regular rate and rhythm RESPIRATORY: b/l expiratory wheezing; bilateral crackles diffusely now; conversationally dyspneic ABDOMEN: Soft, nontender EXTREMITIES: Does have pedal edema to knees NEUROLOGICAL: No focal neurological deficits. SKIN: Skin normal color, texture and turgor with no lesions or eruptions. - Assessment and Plan (1) Severe aortic stenosis Current Visit: Yes Status: Chronic - Summary of Assessment and Plan Summary of Assessment and Plan: Neal Guajardo is a 79 F w hx CAD s/p CABG, s/p bpAVR now with recurrent severe , HFpEF, severe PH, CKD4, who p/w SOB, chest pain, elevated troponin, and pedal edema, consistent with symptomatic causing HFpEF exacerbation and NSTEMI. Severe aortic stenosis: not candidate for surgery per [facility] and pt refuses TAVR evaluation/intervention. At home she is taking daily furosemide, metoprolol, HCTZ, PRN nitroglycerin which can decrease preload and worsen AoS. - holding lasix and hctz and nitro - cardiology consult recommending hospice as no further medical or surgical interventions indicated - appreciate multiple conversations palliative team has had with patient and family - per family and patient, amenable to SNF/ECF Acute on chronic HFpEF, severe PH: likely 2/2 AoS and acutely worsened by NSTEMI NSTEMI: trop elevated as above. Pt refuses LHC. Continue DAPT, statin. Stop metoprolol. JU on CKD4: progressive, likely 2/2 CHF and limiting renal perfusion, pt refuses consideration of HD CAD: meds as above for nstemi Obesity: BMI 34 PPx: sqh Tele: yes Activity: up w assist FEN: cardiac, no MIVF Lines: PIV Consults: cardio, palliative Code: DNRCC-A / DNI Dispo: remains complicated discharge, now amenable to SNF/ECF with hospice Internal Medicine: Result - Labs CBC & Chem 7: 07/16/19 03:32 07/18/19 07:18 Labs: BMP 07/17/19 07/18/19 08:05 07:18 Sodium 139 137 Potassium 5.2 H 5.3 H Chloride 103 103 Carbon Dioxide 25 25 BUN 53 H 59 H Creatinine 2.93 H 3.04 H Glucose 90 92 Calcium 9.6 9.6 - ABG Interpretation ABG results: ABG ABG pH 7.42 pH Units (7.32-7.45) 07/13/19 17:49 ABG pCO2 33 mmHg (35-45) L 07/13/19 17:49 ABG pO2 72 mmHg (85-104) L 07/13/19 17:49 ABG O2 Saturation 95 % (95-98) 07/13/19 17:49 PT/INR, D-dimer PT 14.1 Seconds (9.4-12.1) H 07/14/19 07:44 D-Dimer 2030 ng/mLFEU (0-500) H 07/13/19 19:41 Consult Discharge Plan - Plan Referrals: Candy Beverly MD [Primary Care Provider] -
[2019-07-18] MEDS: *HR* OxyCODONE/APAP 5/325 TABLET PO PRN ×3 (08:24→22:57)
[2019-07-18] MEDS: Aspirin Enteric Coated 81 MG Tablet PO SCH (08:25)
[2019-07-18] MEDS: Ranolazine 500 MG TAB.ER.12H PO SCH ×2 (08:25→22:56)
[2019-07-18] MEDS: rOPINIRole 0.25 MG TABLET PO SCH (22:57)
[2019-07-19] MEDS: Ipratropium/Albuterol Neb 3 ML IH SCH ×4 (04:02→22:27)
[2019-07-19 04:18] LABS: Calcium 9.6 mg/dL (8.6-10.3); Potassium 5.2 mEq/L (3.5-5.1)
[2019-07-19] MEDS: Heparin 25,000 UNIT/250 ML D5W 25,000 UNIT/250 ML IV.SOLN IVC SCH (07:34)
--- NOTE | 2019-07-19 07:51 | Internal Med Progress Note ---
Hospitalist Progress Note - Encounter Date of Encounter: 07/19/19 Time of Encounter: 07:51 - Subjective Interval History: Patient this AM is more awake and cognitively present/participatory in discussion. Still profoundly exertionally dyspneic but denies current needs or symptoms while at rest. Denies CP or N/V/D. - Exam Vitals: Temp Pulse Resp BP Pulse Ox 97.4 F L 60 16 145/67 97 07/19/19 07:40 07/19/19 07:40 07/19/19 07:40 07/19/19 07:40 07/19/19 07:40 Exam: GENERAL APPEARANCE: Frail appearing, awake, continues with mild respiratory distress with any exertion HEENT: Normocephalic/atraumatic, EOMI CARDIOVASCULAR: obvious systolic murmur, regular rate and rhythm RESPIRATORY: b/l expiratory wheezing; bilateral crackles diffusely; conversationally less dyspneic today ABDOMEN: Soft, nontender EXTREMITIES: Does have pedal edema to knees NEUROLOGICAL: No focal neurological deficits. - Assessment and Plan (1) Severe aortic stenosis Current Visit: Yes Status: Chronic - Summary of Assessment and Plan Summary of Assessment and Plan: Neal Guajardo is a 79 F w hx CAD s/p CABG, s/p bpAVR now with recurrent severe , HFpEF, severe PH, CKD4, who p/w SOB, chest pain, elevated troponin, and pedal edema, consistent with symptomatic causing HFpEF exacerbation and NSTEMI. Severe aortic stenosis: not candidate for surgery per [facility] and pt refuses TAVR evaluation/intervention. At home she is taking daily furosemide, metoprolol, HCTZ, PRN nitroglycerin which can decrease preload and worsen AoS. - holding lasix and hctz and nitro - cardiology consult recommending hospice as no further medical or surgical interventions indicated - appreciate multiple conversations palliative team has had with patient and family - per family and patient, amenable to SNF/ECF - PT/OT assessed patient today, tolerated some activity and thus will attempt skilled rehab per patient preference Acute on chronic HFpEF, severe PH: likely 2/2 AoS and acutely worsened by NSTEMI NSTEMI: trop elevated as above. Pt refuses LHC. Continue DAPT, statin. Stop metoprolol. JU on CKD4: progressive, likely 2/2 CHF and limiting renal perfusion, pt refuses consideration of HD CAD: meds as above for nstemi Obesity: BMI 34 PPx: sqh Tele: yes Activity: up w assist FEN: cardiac, no MIVF Lines: PIV Consults: cardio, palliative Code: DNRCC-A / DNI Dispo: pursuing SNF Internal Medicine: Result - Labs CBC & Chem 7: 07/16/19 03:32 07/19/19 03:39 Labs: BMP 07/18/19 07/19/19 07:18 03:39 Sodium 137 138 Potassium 5.3 H 5.2 H Chloride 103 103 Carbon Dioxide 25 27 BUN 59 H 63 H Creatinine 3.04 H 3.35 H Glucose 92 89 Calcium 9.6 9.6 - ABG Interpretation ABG results: ABG ABG pH 7.42 pH Units (7.32-7.45) 07/13/19 17:49 ABG pCO2 33 mmHg (35-45) L 07/13/19 17:49 ABG pO2 72 mmHg (85-104) L 07/13/19 17:49 ABG O2 Saturation 95 % (95-98) 07/13/19 17:49 PT/INR, D-dimer PT 14.1 Seconds (9.4-12.1) H 07/14/19 07:44 D-Dimer 2030 ng/mLFEU (0-500) H 07/13/19 19:41 Consult Discharge Plan - Plan Referrals: Candy Beverly MD [Primary Care Provider] -
[2019-07-19] MEDS: Aspirin Enteric Coated 81 MG Tablet PO SCH (07:52)
[2019-07-19] MEDS: Ranolazine 500 MG TAB.ER.12H PO SCH ×2 (07:53→20:55)
[2019-07-19] MEDS ORDERED: *HR* OxyCODONE/APAP 5/325 TABLET PO PRN ×2 (09:04)
[2019-07-19] MEDS: rOPINIRole 0.25 MG TABLET PO SCH (20:54)
[2019-07-20] MEDS: Ipratropium/Albuterol Neb 3 ML IH SCH ×2 (04:21→10:47)
[2019-07-20 06:30] LABS: Calcium 9.7 mg/dL (8.6-10.3); Potassium 4.9 mEq/L (3.5-5.1)
--- NOTE | 2019-07-20 07:25 | Internal Med Progress Note ---
Hospitalist Progress Note - Encounter Date of Encounter: 07/20/19 Time of Encounter: 07:24 - Subjective Interval History: Yesterday did seem to have some delirium which improved overnight. This AM, sitting up at bedside, awake but drowsy, answers questions and says exertional dyspnea this AM is slightly improved. No CP, improved nausea, needs to urinate. - Exam Vitals: Temp Pulse Resp BP Pulse Ox 97.7 F 59 16 114/64 96 07/20/19 04:12 07/20/19 04:12 07/20/19 04:12 07/20/19 04:12 07/20/19 04:12 Exam: GENERAL APPEARANCE: Frail appearing, awake, slight improvement in respiratory distress with any exertion HEENT: Normocephalic/atraumatic, EOMI CARDIOVASCULAR: obvious systolic murmur, regular rate and rhythm RESPIRATORY: b/l expiratory wheezing; bilateral crackles in lower half of lungs; not conversationally dyspneic today ABDOMEN: Soft, nontender EXTREMITIES: Does have pedal edema to knees NEUROLOGICAL: No focal neurological deficits. - Assessment and Plan (1) Severe aortic stenosis Current Visit: Yes Status: Chronic - Summary of Assessment and Plan Summary of Assessment and Plan: Neal Guajardo is a 79 F w hx CAD s/p CABG, s/p bpAVR now with recurrent severe , HFpEF, severe PH, CKD4, who p/w SOB, chest pain, elevated troponin, and pedal edema, consistent with symptomatic causing HFpEF exacerbation and NSTEMI. Severe aortic stenosis: not candidate for surgery per [facility] and pt refuses TAVR evaluation/intervention. At home she is taking daily furosemide, metoprolol, HCTZ, PRN nitroglycerin which can decrease preload and worsen AoS. - cardiology consult recommending hospice as no further medical or surgical interventions indicated - appreciate palliative rec's - per family and patient, amenable to SNF/ECF - PT/OT assessed patient today, tolerated some activity and thus will attempt skilled rehab per patient preference Acute on chronic HFpEF, severe PH: likely 2/2 AoS and acutely worsened by NSTEMI NSTEMI: trop elevated as above. Pt refuses LHC. Continue DAPT, statin. JU on CKD4: likely 2/2 CHF and limiting renal perfusion, pt refuses consideration of HD, still making some urine, values stable this AM CAD: meds as above for nstemi Obesity: BMI 34 PPx: sqh Tele: no Activity: up w assist FEN: cardiac, no MIVF Lines: PIV Consults: cardio, palliative Code: DNRCC-A / DNI Dispo: pursuing SNF, ready for d/c Internal Medicine: Result - Labs CBC & Chem 7: 07/16/19 03:32 07/20/19 05:46 Labs: BMP 07/20/19 05:46 Sodium 137 Potassium 4.9 Chloride 104 Carbon Dioxide 25 BUN 66 H Creatinine 3.12 H Glucose 100 Calcium 9.7 - ABG Interpretation ABG results: ABG ABG pH 7.42 pH Units (7.32-7.45) 07/13/19 17:49 ABG pCO2 33 mmHg (35-45) L 07/13/19 17:49 ABG pO2 72 mmHg (85-104) L 07/13/19 17:49 ABG O2 Saturation 95 % (95-98) 07/13/19 17:49 PT/INR, D-dimer PT 14.1 Seconds (9.4-12.1) H 07/14/19 07:44 D-Dimer 2030 ng/mLFEU (0-500) H 07/13/19 19:41 Consult Discharge Plan - Plan Referrals: Candy Beverly MD [Primary Care Provider] -
[2019-07-20] MEDS: Aspirin Enteric Coated 81 MG Tablet PO SCH (08:12)
[2019-07-20] MEDS: Ranolazine 500 MG TAB.ER.12H PO SCH (08:12)
[2019-07-20 11:16] VITALS: BP 123/71
--- NOTE | 2019-07-20 12:41 | Discharge Summary ---
- NOTES TO OUTPATIENT PROVIDER Notes to Outpatient Provider: No further inpatient care needs, patient aware of grim prognosis and opts for SNF as possible bridge to home where she understands she will , refuses hospice or any further intervention Date of Encounter: 07/20/19 Time of Encounter: 12:41 - Discharge Diagnosis (1) Severe aortic stenosis Priority: Primary Status: Chronic Hospital course: Dear Doctors, I recently had the opportunity to care for this patient during their recent hospital stay at [facility]. Neal Guajardo is a 79 F w hx CAD s/p CABG, s/p bpAVR now with recurrent severe , HFpEF, severe PH, CKD4, who presented at time of admission with SOB and chest pain. She was found to have pedal edema and elevated troponin, cons istent with symptomatic causing HFpEF exacerbation and NSTEMI. In the hospital, cardiology was consulted. Patient was offered LHC which she refused. Patient was offered transfer to [facility] for consideration of TAVR which she refused. She stated multiple times that she understood the severity of her illness and that this was likely to take her life. However, she also refused any kind of palliative/hospice care, stating instead that she wanted to be home without interruption. Due to significant exertional dyspnea, however, patient after multiple discussions with family and medical team agreed that SNF might be more appropriate, at least in short term, while family figures out way to transition her back to home. Dx: Severely stenotic bioprosthetic aortic valve, with resultant severe acute on chronic PH and HFpEF, and JU on CKD4 Pertinent tests/consults: Cardio consult rec'd hospice Follow up: per SNF, and if symptoms worsen then hospice; no role for further cardiology follow up Tests pending: none Med changes: - stop lasix - stop nitro - stop lisinopril/hctz - start duoneb prn SOB - start plavix 75 - increase atorvastatin from 10 to 40 - decrease metoprolol from 50 bid to 12.5 bid - decrease ASA from 325 to 81 - decrease allopurinol from 300 to 100 Mental status: awake, fully oriented Code status: DNRCC-A / DNI Time spent on discharge: 35 minutes It has been my pleasure participating in this patient's care. Please contact me with any questions or concerns regarding their hospital stay. Sincerely, Jaya Gonzalez MD - Discharge Medications Prescriptions: New Aspirin Enteric Coated [Aspirin EC] 81 mg PO DAILY #1 tablet. Ipratropium/Albuterol Neb [Duoneb] 3 ml IH [id number] PRN #1 inhsol PRN Reason: Shortness Of Breath Atorvastatin [Lipitor] 40 mg PO HS #1 tablet Metoprolol [Lopressor] 12.5 mg PO BID #1 tablet Clopidogrel [Plavix] 75 mg PO DAILY #1 tablet Ondansetron ODT [Zofran ODT] 4 mg SL Q4HR #1 tab.rapdis Allopurinol [Zyloprim 100 MG] 100 mg PO DAILY #1 tablet Continued Ranolazine [Ranexa] 1,000 mg PO BID Levothyroxine [Synthroid] 88 mcg PO 0630 Ropinirole HCl [Requip] 0.5 mg PO HS Eszopiclone 1 mg PO HS Omeprazole [PriLOSEC] 20 mg PO DAILY Discontinued Nitroglycerin 0.4 mg SL PRN PRN #30 tab.subl PRN Reason: Chest Pain Atorvastatin Calcium [Lipitor] 20 mg PO HS Furosemide [Lasix] 20 mg PO DAILY Metoprolol [Lopressor] 50 mg PO BID Aspirin [Ecotrin] 325 mg PO DAILY Allopurinol [Zyloprim 300 MG] 100 mg PO DAILY PRN PRN Reason: GOUT Lisinopril-HCTZ 10-12.5 [Prinzide 10-12.5] 1 tab PO DAILY Home Medications: Ranolazine [Ranexa] 1,000 mg PO BID 03/14/19 [History] Omeprazole [PriLOSEC] 20 mg PO DAILY 06/06/19 [History] Levothyroxine [Synthroid] 88 mcg PO 0630 06/22/19 [History] Eszopiclone 1 mg PO HS 07/13/19 [History] Ropinirole HCl [Requip] 0.5 mg PO HS 07/13/19 [History] Allopurinol [Zyloprim 100 MG] 100 mg PO DAILY #1 tablet 07/20/19 [Rx] Aspirin Enteric Coated [Aspirin EC] 81 mg PO DAILY #1 tablet. 07/20/19 [Rx] Atorvastatin [Lipitor] 40 mg PO HS #1 tablet 07/20/19 [Rx] Clopidogrel [Plavix] 75 mg PO DAILY #1 tablet 07/20/19 [Rx] Ipratropium/Albuterol Neb [Duoneb] 3 ml IH [id number] PRN #1 inhsol 07/20/19 [Rx] Metoprolol [Lopressor] 12.5 mg PO BID #1 tablet 07/20/19 [Rx] Ondansetron ODT [Zofran ODT] 4 mg SL Q4HR #1 tab.rapdis 07/20/19 [Rx] Allergies/Adverse Reactions: Allergy/AdvReac Type Severity Reaction Status Date / Time No Known Allergies Allergy Verified 06/21/19 16:38 Date of admission: 07/14/19 08:41 Primary care physician: Candy Beverly MD Consults: 07/13/19 17:43 Consult to Cardiology [CONS] Routine Comment: Consulting Provider: Cardiology [place] Reason for Consult: Severe Aortic Stenosis Call Completed: Yes 07/14/19 13:05 Consult to Palliative Care [CONS] Routine Comment: Consulting Provider: [facility] [place] Reason for Consult: symptomatic heart disease (aortic stenosis and CAD) refusing further intervention (TAVR and cath, respectively), resistant to the word "hospice" but interested in palliative care Call Completed: No 07/16/19 15:06 Consult to Occupational Therapy [CONS] Routine Comment: Evaluate, develop and implement POC Reason for Consult: discharge planning Does patient have active BEDREST order?: No Is patient medically & hemodynamically stable?: Yes Patient assessed for mobility or mobilized this visit?: Yes Consult to Physical Therapy [CONS] Routine Comment: Evaluate, develop and implement POC Reason for Consult: discharge planning Does patient have active BEDREST order?: No Is patient medically & hemodynamically stable?: Yes Patient assessed for mobility or mobilized this visit?: Yes - Constitutional Vitals: Temp Pulse Resp BP Pulse Ox 97.8 F 60 17 123/71 97 07/20/19 11:12 07/20/19 11:12 07/20/19 11:12 07/20/19 11:12 07/20/19 11:12 Exam: GENERAL APPEARANCE: Frail appearing, awake, slight improvement in respiratory distress with any exertion HEENT: Normocephalic/atraumatic, EOMI CARDIOVASCULAR: obvious systolic murmur, regular rate and rhythm RESPIRATORY: b/l expiratory wheezing; bilateral crackles in lower half of lungs; not conversationally dyspneic today ABDOMEN: Soft, nontender EXTREMITIES: Does have pedal edema to knees NEUROLOGICAL: No focal neurological deficits. - Patient Status Disposition: Transfer SNF Condition: Serious Functional capacity at discharge: wheelchair bound (1-2 person assist) Overall status at discharge: patient is not back to baseline - Discharge Instructions Follow Up With: Candy Beverly MD [Primary Care Provider] - Forms: ED Satisfaction Letter - Diet and Activity Activity: increase activity as tolerated Diet: advance to your usual diet
--- NOTE | 2019-07-20 14:19 | Physician Discharge Referral ---
ExtendedCare Referral Info Transfer To: SNF Provider in Charge after Transfer: PCP Institutional Level of Care: Skilled - Diagnosis (1) Severe aortic stenosis Priority: Primary Status: Chronic - Transfer Medications Prescriptions: Aspirin Enteric Coated [Aspirin EC] 81 mg PO DAILY #1 tablet. Ipratropium/Albuterol Neb [Duoneb] 3 ml IH [id number] PRN #1 inhsol PRN Reason: Shortness Of Breath Atorvastatin [Lipitor] 40 mg PO HS #1 tablet Metoprolol [Lopressor] 12.5 mg PO BID #1 tablet Clopidogrel [Plavix] 75 mg PO DAILY #1 tablet Ondansetron ODT [Zofran ODT] 4 mg SL Q4HR #1 tab.rapdis Allopurinol [Zyloprim 100 MG] 100 mg PO DAILY #1 tablet Home Medications: Ranolazine [Ranexa] 1,000 mg PO BID 03/14/19 [History] Omeprazole [PriLOSEC] 20 mg PO DAILY 06/06/19 [History] Levothyroxine [Synthroid] 88 mcg PO 0630 06/22/19 [History] Eszopiclone 1 mg PO HS 07/13/19 [History] Ropinirole HCl [Requip] 0.5 mg PO HS 07/13/19 [History] Allopurinol [Zyloprim 100 MG] 100 mg PO DAILY #1 tablet 07/20/19 [Rx] Aspirin Enteric Coated [Aspirin EC] 81 mg PO DAILY #1 tablet. 07/20/19 [Rx] Atorvastatin [Lipitor] 40 mg PO HS #1 tablet 07/20/19 [Rx] Clopidogrel [Plavix] 75 mg PO DAILY #1 tablet 07/20/19 [Rx] Ipratropium/Albuterol Neb [Duoneb] 3 ml IH [id number] PRN #1 inhsol 07/20/19 [Rx] Metoprolol [Lopressor] 12.5 mg PO BID #1 tablet 07/20/19 [Rx] Ondansetron ODT [Zofran ODT] 4 mg SL Q4HR #1 tab.rapdis 07/20/19 [Rx] Allergies/Adverse Reactions: Allergy/AdvReac Type Severity Reaction Status Date / Time No Known Allergies Allergy Verified 06/21/19 16:38 - Respiratory Orders Smoking Cessation: Smoking cessation has been advised. For more information, call the [place] Tobacco Quit Line at 3-295-HBWC-NOW. - Ancillary Orders May use pressure relief devices daily prn, May go on RAGINI w/family/respon green party w/meds at nurse discretion PRN, May consult with Dentist, Bryologist, Inside Tester PRN - Advance Directives Code Status: DNR-Arrest/Don't Intubate - Rehabiliation Orders Rehab Orders: ROM Exercises, Evaluation for Physical Therapy, Evaluation for Occupational Therapy - Treatments Skin tear care topically daily PRN per policy List/Other: Patient has no further options for cardiovascular management and is at the point of hospice. Should she decompensate, referral/conversion to hospice would be appropriate, as there is no further inpatient management that she will allow and does not want to return to the hospital. - Diet Orders Regular CERTIFICATION: I certify that the transfer of the above named patient to an Extended Care Facility is necessary for the continuing treatment of the diagnosis listed. The above information is true and accurate reflection of patient's current condition. Confidential - Redisclosure prohibited without a patient's written consent.
== END 2019-07-20 15:57 | DRG 280 ==
LOC: 2ANU 13:08 → EMEROOARM 13:08 → SUATTDRO 15:20 → 2ANU 16:22
PROVIDERS: ADMIT Family Medicine; ATTEND Internal Medicine